=== PATIENT | male | born 1950 | race Caucasian/White ===

== ENCOUNTER 2017-03-18 07:29 | Emergency (ER) | payer MEDICAID ==
[~2017-03-18] VITALS: Ht 190.5 cm; Wt 103.0 kg
[~2017-03-18 07:29] MED LIST: CLON0.1T PO; DIGO0.2570 PO; DOXY-216 PO; LEVO-28 PO; LORA-654 PO; NOR10T PO
[2017-03-18 07:58] VITALS: BP 137/92
== END 2017-03-18 08:33 | disposition home or self-care (01) ==
LOC: ER 07:29
DX: K40.90 Unilateral inguinal hernia, without obstruction or gangrene, not specified as recurrent (principal); J44.9 Chronic obstructive pulmonary disease, unspecified; I50.9 Heart failure, unspecified; I11.0 Hypertensive heart disease with heart failure; E11.9 Type 2 diabetes mellitus without complications; F17.210 Nicotine dependence, cigarettes, uncomplicated; Z82.49 Family history of ischemic heart disease and other diseases of the circulatory system; Z80.9 Family history of malignant neoplasm, unspecified; Z88.6 Allergy status to analgesic agent; Z88.8 Allergy status to other drugs, medicaments and biological substances

== ENCOUNTER 2017-05-20 22:35 | Inpatient (IN) | payer MEDICAID ==
[~2017-05-20] VITALS: Ht 185.4 cm; Wt 99.6 kg
[2017-05-20 23:20] LABS: Basophils # (auto) 0.1 uL; Eosinophils # (auto) 0.2 uL; Eosinophils % (auto) 2.8 % (0.0-7.0); Hematocrit 49.6 % (41.0-53.0); Hemoglobin 16.1 g/dL (13.5-17.5); Lymphocytes # (auto) 1.4 uL; Lymphocytes % (auto) 19.4 % (10.0-50.0); Mean Corpuscular Hemoglobin 30.4 pg (28.0-32.0); Mean Corpuscular Hgb Conc. 32.5 g/dL (32.0-36.0); Mean Corpuscular Volume 93.4 fL (80.0-100.0); Monocytes # (auto) 0.6 uL; Monocytes % (auto) 8.7 % (0.0-12.0); Neutrophils # (auto) 4.9 uL; Neutrophils % (auto) 68.1 % (37.0-80.0); Nucleated Red Blood Cells % 0.1 %; Platelet Count (auto) 193 10^3/uL (140-450); Red Blood Cells 5.31 10^6/uL (4.5-5.90); Red Cell Distribution Width 16.7 % (11.8-14.3); White Blood Cell 7.2 10^3/uL (4.4-10.8)
[2017-05-20 23:26] LABS: INR 1.05 (0.9-1.15); Prothrombin Time 11.4 sec (9.37-12.3)
[2017-05-20 23:30] LABS: Alanine Aminotransferase 28 U/L (16-61); Albumin 3.9 g/dL (3.4-5.0); Anion Gap 4 (5-15); Aspartate Aminotransferase 21 U/L (15-37); BUN/Creatinine Ratio 11.3; Blood Urea Nitrogen 14 mg/dL (7-18); Calcium 8.7 mg/dL (8.5-10.1); Carbon Dioxide 29 mmol/L (21-32); Chloride 104 mmol/L (98-107); GFR African American 75 mL/min; GFR Non-African American 62 mL/min; Glucose 117 mg/dL (74-106); Sodium 137 mmol/L (136-145)
[2017-05-20] MEDS ORDERED: ONDANSETRON HCL 4 MG/2 ML VIAL IV ONE (23:30)
[2017-05-20] MEDS ORDERED: methylPREDNISolone SOD SUCC 125 MG/2 ML VL IV ONE (23:30)
[2017-05-20] MEDS ORDERED: NALBUPHINE HCL 10 MG/1ml INJECTION IV ONE (23:30)
[2017-05-20 23:35] LABS: Alkaline Phosphatase 94 U/L (45-117); Bilirubin, Total 0.4 mg/dL (0.2-1.0)
[2017-05-21] VITALS (8 sets, daily range): BP systolic 102–123; BP diastolic 54–83
[2017-05-21] MEDS ORDERED: ONDANSETRON HCL 4 MG/2 ML VIAL IV PRN (04:45)
[2017-05-21] MEDS ORDERED: NITROGLYCERIN 0.4 MG SL TAB SL PRN (04:45)
[2017-05-21] MEDS ORDERED: ALBUTEROL SULF 2.5 MG/0.5ML(0.5%) NEB SOLN NEB PRN (04:45)
[2017-05-21] MEDS ORDERED: IPRATROPIUM BROM 0.5 MG/2.5ML INH SOL NEB PRN (04:45)
[2017-05-21] MEDS ORDERED: ACETAMINOPHEN 325 MG TAB PO PRN (04:45)
[2017-05-21] MEDS ORDERED: IPRATROPIUM BROM 0.5 MG/2.5ML INH SOL NEB ONE (04:45)
[2017-05-21] MEDS ORDERED: MORPHINE SULFATE 4 MG/ML SYR/VIAL IV PRN (04:45)
[2017-05-21] MEDS ORDERED: ALBUTEROL SULF 2.5 MG/0.5ML(0.5%) NEB SOLN NEB ONE (04:45)
[2017-05-21] MEDS: FUROSEMIDE 40 MG TAB PO SCH (09:55)
[2017-05-21] MEDS: DIGOXIN 0.125 MG TAB PO SCH (09:55)
[2017-05-21] MEDS: FAMOTIDINE 20 MG TAB PO SCH ×2 (09:55→21:39)
[2017-05-21] MEDS: LISINOPRIL 5 MG TAB PO SCH (09:56)
[2017-05-21] MEDS: HYDROcodone-ACET 5/325MG TAB PO PRN ×2 (09:56→14:42)
[2017-05-21] MEDS: ENOXAPARIN SOD 40 MG/0.4 ML SYRINGE SC SCH (09:56)
[2017-05-21] MEDS ORDERED: methylPREDNISolone SOD SUCC 125 MG/2 ML VL IV SCH (10:00)
[2017-05-21] MEDS ORDERED: KETOROLAC TROMETH 30 MG/ML 1ML VIAL IV PRN (19:45)
[2017-05-21] MEDS: BUDESONIDE (INHALATION) 0.5 MG/2 ML NEB NEB SCH (19:53)
[2017-05-21] MEDS: IPRATROPIUM BROM 0.5 MG/2.5ML INH SOL NEB PRN (19:53)
[2017-05-21] MEDS: ALBUTEROL SULF 2.5 MG/0.5ML(0.5%) NEB SOLN NEB PRN (19:53)
[2017-05-21] MEDS: methylPREDNISolone SOD SUCC 125 MG/2 ML VL IV SCH (21:39)
[2017-05-21] MEDS: HYDROcodone-ACET 7.5/325MG TAB PO PRN (21:40)
[2017-05-22] VITALS (7 sets, daily range): BP systolic 108–150; BP diastolic 62–87
[2017-05-22] MEDS: HYDROcodone-ACET 7.5/325MG TAB PO PRN ×3 (02:18→17:34)
[2017-05-22 05:19] LABS: Basophils # (auto) 0 uL; Basophils % (auto) 0.2 % (0.0-2.0); Eosinophils # (auto) 0 uL; Hematocrit 46.2 % (41.0-53.0); Lymphocytes # (auto) 0.5 uL; Lymphocytes % (auto) 4.5 % (10.0-50.0); Mean Corpuscular Hemoglobin 30.2 pg (28.0-32.0); Mean Corpuscular Hgb Conc. 32.5 g/dL (32.0-36.0); Mean Corpuscular Volume 92.8 fL (80.0-100.0); Monocytes # (auto) 0.4 uL; Monocytes % (auto) 3.3 % (0.0-12.0); Neutrophils # (auto) 11.1 uL; Nucleated Red Blood Cells % 0.1 %; Platelet Count (auto) 193 10^3/uL (140-450); Red Blood Cells 4.98 10^6/uL (4.5-5.90); Red Cell Distribution Width 16.2 % (11.8-14.3)
[2017-05-22] MEDS: methylPREDNISolone SOD SUCC 125 MG/2 ML VL IV SCH (05:40)
[2017-05-22 05:54] LABS: Albumin 3.5 g/dL (3.4-5.0); BUN/Creatinine Ratio 27.6; Bilirubin, Total 0.3 mg/dL (0.2-1.0); Potassium 4.7 mmol/L (3.5-5.1); Total Protein 7.7 g/dL (6.4-8.2)
[2017-05-22] MEDS: BUDESONIDE (INHALATION) 0.5 MG/2 ML NEB NEB SCH ×2 (06:19→18:21)
[2017-05-22] MEDS: ALBUTEROL SULF 2.5 MG/0.5ML(0.5%) NEB SOLN NEB PRN ×3 (06:19→18:21)
[2017-05-22] MEDS: IPRATROPIUM BROM 0.5 MG/2.5ML INH SOL NEB PRN ×3 (06:19→18:21)
[2017-05-22] MEDS: FAMOTIDINE 20 MG TAB PO SCH ×2 (10:26→22:00)
[2017-05-22] MEDS: LISINOPRIL 5 MG TAB PO SCH (10:26)
[2017-05-22] MEDS: DIGOXIN 0.125 MG TAB PO SCH (10:26)
[2017-05-22] MEDS: FUROSEMIDE 40 MG TAB PO SCH (10:26)
[2017-05-22] MEDS: ENOXAPARIN SOD 40 MG/0.4 ML SYRINGE SC SCH (10:27)
[2017-05-23] VITALS: BP 121/79
[2017-05-23] MEDS: TEMAZEPAM 15 MG CAP PO PRN (00:06)
[2017-05-23 04:00] VITALS: BP 123/73
[2017-05-23] MEDS: HYDROcodone-ACET 5/325MG TAB PO PRN ×2 (04:57→21:54)
[2017-05-23] MEDS: predniSONE 20 MG TAB PO SCH (09:50)
[2017-05-23] MEDS: DIGOXIN 0.125 MG TAB PO SCH (09:50)
[2017-05-23] MEDS: FUROSEMIDE 40 MG TAB PO SCH (09:50)
[2017-05-23] MEDS: ENOXAPARIN SOD 40 MG/0.4 ML SYRINGE SC SCH (09:51)
[2017-05-23] MEDS: FAMOTIDINE 20 MG TAB PO SCH ×2 (09:51→21:54)
[2017-05-23] MEDS: HYDROcodone-ACET 7.5/325MG TAB PO PRN ×2 (09:51→14:49)
[2017-05-23] MEDS: BUDESONIDE (INHALATION) 0.5 MG/2 ML NEB NEB SCH ×2 (10:15→18:20)
[2017-05-23] MEDS: LISINOPRIL 5 MG TAB PO SCH (11:11)
[2017-05-23 12:00] VITALS: BP 112/68
[2017-05-23 16:00] VITALS: BP 121/74
[2017-05-23] MEDS: IPRATROPIUM BROM 0.5 MG/2.5ML INH SOL NEB PRN (18:20)
[2017-05-23] MEDS: ALBUTEROL SULF 2.5 MG/0.5ML(0.5%) NEB SOLN NEB PRN (18:20)
[2017-05-23 20:00] VITALS: BP 125/67
[2017-05-24] VITALS: BP 110/70
[2017-05-24] MEDS: HYDROcodone-ACET 5/325MG TAB PO PRN ×2 (02:02→06:01)
[2017-05-24 04:00] VITALS: BP 118/61
[2017-05-24 08:00] VITALS: BP 132/76
[2017-05-24] MEDS: BUDESONIDE (INHALATION) 0.5 MG/2 ML NEB NEB SCH ×2 (09:41→18:24)
[2017-05-24] MEDS: predniSONE 20 MG TAB PO SCH (09:55)
[2017-05-24] MEDS: DIGOXIN 0.125 MG TAB PO SCH (09:56)
[2017-05-24] MEDS: LISINOPRIL 5 MG TAB PO SCH (09:56)
[2017-05-24] MEDS: FAMOTIDINE 20 MG TAB PO SCH ×2 (09:56→22:20)
[2017-05-24] MEDS: FUROSEMIDE 40 MG TAB PO SCH (09:56)
[2017-05-24] MEDS: ENOXAPARIN SOD 40 MG/0.4 ML SYRINGE SC SCH (09:56)
[2017-05-24] MEDS: HYDROcodone-ACET 7.5/325MG TAB PO PRN ×3 (09:57→21:03)
[2017-05-24 12:00] VITALS: BP 117/82
[2017-05-24 16:00] VITALS: BP 119/91
[2017-05-24] MEDS: IPRATROPIUM BROM 0.5 MG/2.5ML INH SOL NEB PRN (18:23)
[2017-05-24] MEDS: ALBUTEROL SULF 2.5 MG/0.5ML(0.5%) NEB SOLN NEB PRN (18:23)
[2017-05-24 20:05] VITALS: BP 99/56
[2017-05-24] MEDS: TEMAZEPAM 15 MG CAP PO PRN (22:20)
[2017-05-25] VITALS: BP 129/84
[2017-05-25 02:58] VITALS: BP 129/89
[2017-05-25] MEDS: HYDROcodone-ACET 7.5/325MG TAB PO PRN (04:04)
[2017-05-25 05:31] LABS: Basophils # (auto) 0 uL; Basophils % (auto) 0.6 % (0.0-2.0); Eosinophils # (auto) 0.2 uL; Eosinophils % (auto) 2.1 % (0.0-7.0); Hematocrit 46.9 % (41.0-53.0); Hemoglobin 15.5 g/dL (13.5-17.5); Lymphocytes # (auto) 2.1 uL; Lymphocytes % (auto) 29.3 % (10.0-50.0); Mean Corpuscular Hemoglobin 30.5 pg (28.0-32.0); Mean Corpuscular Hgb Conc. 32.9 g/dL (32.0-36.0); Mean Corpuscular Volume 92.5 fL (80.0-100.0); Monocytes # (auto) 0.6 uL; Monocytes % (auto) 8.4 % (0.0-12.0); Neutrophils # (auto) 4.3 uL; Neutrophils % (auto) 59.6 % (37.0-80.0); Nucleated Red Blood Cells % 0.1 %; Platelet Count (auto) 211 10^3/uL (140-450); Red Blood Cells 5.07 10^6/uL (4.5-5.90); White Blood Cell 7.3 10^3/uL (4.4-10.8)
[2017-05-25 08:00] VITALS: BP 108/64
[2017-05-25] MEDS: BUDESONIDE (INHALATION) 0.5 MG/2 ML NEB NEB SCH (09:35)
[2017-05-25] MEDS: ENOXAPARIN SOD 40 MG/0.4 ML SYRINGE SC SCH (10:35)
[2017-05-25] MEDS: FAMOTIDINE 20 MG TAB PO SCH (10:36)
[2017-05-25] MEDS: DIGOXIN 0.125 MG TAB PO SCH (10:36)
[2017-05-25] MEDS: predniSONE 20 MG TAB PO SCH (10:36)
[2017-05-25] MEDS: LISINOPRIL 5 MG TAB PO SCH (10:37)
[2017-05-25] MEDS: FUROSEMIDE 40 MG TAB PO SCH (10:37)
[2017-05-25 11:51] VITALS: BP 100/71
[2017-05-25] MEDS ORDERED: DOXYCYCLINE 100 MG TAB/CAP PO ONE (12:30)
[2017-05-25 14:25] VITALS: BP 100/71
[2017-05-25] MEDS ORDERED: DOXYCYCLINE 100 MG TAB/CAP PO SCH (22:00)
== END 2017-05-25 15:15 | disposition home or self-care (01) | DRG 140 ==
LOC: EDBD 22:35 → ER 22:43 → TELE 22:44 → DOU IN ICU 05-21 15:18
PROVIDERS: ADMIT Nurse Practitioner; ATTEND Internal Medicine Pulmonary Disease
DX: J44.1 Chronic obstructive pulmonary disease with (acute) exacerbation (principal); J96.21 Acute and chronic respiratory failure with hypoxia; I50.9 Heart failure, unspecified; I11.0 Hypertensive heart disease with heart failure; Z99.81 Dependence on supplemental oxygen; I48.2 Chronic atrial fibrillation; E83.51 Hypocalcemia; E11.9 Type 2 diabetes mellitus without complications; F17.210 Nicotine dependence, cigarettes, uncomplicated; G89.29 Other chronic pain; K59.00 Constipation, unspecified; M19.90 Unspecified osteoarthritis, unspecified site; M54.5 Low back pain; Z88.8 Allergy status to other drugs, medicaments and biological substances; Z79.01 Long term (current) use of anticoagulants; Z80.9 Family history of malignant neoplasm, unspecified; Z88.5 Allergy status to narcotic agent; Z79.899 Other long term (current) drug therapy; Z82.49 Family history of ischemic heart disease and other diseases of the circulatory system
CPT/HCPCS: 36415; 36600; 71045; 80053; 82805; 82962; 83880; 84132; 84484; 85025; 85379; 85610; 85730; 87081; 93005; 93306; 94640; 96374; 96375; J2405

== ENCOUNTER 2017-06-22 06:11 | Inpatient (IN) | payer MEDICAID ==
[~2017-06-22] VITALS: Ht 190.5 cm; Wt 90.6 kg
[~2017-06-22 06:11] MED LIST changes: -LEVO-28 PO
[2017-06-22 07:45] LABS: Basophils # (auto) 0.1 uL; Eosinophils # (auto) 0.2 uL; Eosinophils % (auto) 2.6 % (0.0-7.0); Hematocrit 41.7 % (41.0-53.0); Hemoglobin 13.7 g/dL (13.5-17.5); Lymphocytes # (auto) 1.4 uL; Lymphocytes % (auto) 23.9 % (10.0-50.0); Mean Corpuscular Hemoglobin 30.4 pg (28.0-32.0); Mean Corpuscular Hgb Conc. 32.9 g/dL (32.0-36.0); Mean Corpuscular Volume 92.5 fL (80.0-100.0); Monocytes # (auto) 0.9 uL; Monocytes % (auto) 15.1 % (0.0-12.0); Neutrophils # (auto) 3.4 uL; Neutrophils % (auto) 57.4 % (37.0-80.0); Nucleated Red Blood Cells % 0.1 %; Platelet Count (auto) 140 10^3/uL (140-450); Red Blood Cells 4.51 10^6/uL (4.5-5.90); Red Cell Distribution Width 16.9 % (11.8-14.3)
[2017-06-22 08:06] LABS: INR 0.99 (0.9-1.15); Partial Thromboplastin Time 43.3 sec (22.64-33.71); Prothrombin Time 10.8 sec (9.37-12.3)
[2017-06-22 08:21] LABS: Alanine Aminotransferase 22 U/L (16-61); Albumin 3.6 g/dL (3.4-5.0); Alkaline Phosphatase 79 U/L (45-117); Anion Gap 10 (5-15); Aspartate Aminotransferase 20 U/L (15-37); BUN/Creatinine Ratio 17.8; Bilirubin, Total 0.5 mg/dL (0.2-1.0); Blood Urea Nitrogen 21 mg/dL (7-18); Calcium 8.5 mg/dL (8.5-10.1); Carbon Dioxide 21 mmol/L (21-32); Chloride 107 mmol/L (98-107); GFR African American 80 mL/min; GFR Non-African American 66 mL/min; Glucose 118 mg/dL (74-106); Magnesium 2.4 mg/dL (1.6-2.6); Potassium 3.8 mmol/L (3.5-5.1); Sodium 138 mmol/L (136-145)
[2017-06-22] MEDS ORDERED: SODIUM CHLORIDE 0.9% 1,000 ML IV ONE (08:38)
[2017-06-22] MEDS ORDERED: IPRATROPIUM BROM 0.5 MG/2.5ML INH SOL NEB ONE (11:00)
[2017-06-22] MEDS ORDERED: ALBUTEROL SULF 2.5 MG/0.5ML(0.5%) NEB SOLN NEB ONE (11:00)
[2017-06-22] MEDS ORDERED: MORPHINE SULFATE 4 MG/ML SYR/VIAL ONE (11:11)
[2017-06-22] MEDS ORDERED: ONDANSETRON HCL 4 MG/2 ML VIAL ONE (11:12)
[2017-06-22] MEDS ORDERED: MORPHINE SULFATE 4 MG/ML SYR/VIAL IV ONE (11:15)
[2017-06-22] MEDS ORDERED: ONDANSETRON HCL 4 MG/2 ML VIAL IV ONE (11:15)
[2017-06-22] MEDS ORDERED: cefTRIAXone 1GM/10ml IVPUSH 10 ML IV ONE (13:00)
[2017-06-22] MEDS ORDERED: MORPHINE SULFATE 4 MG/ML SYR/VIAL IV PRN (14:45)
[2017-06-22] MEDS ORDERED: TEMAZEPAM 15 MG CAP PO PRN (14:45)
[2017-06-22] MEDS ORDERED: ONDANSETRON HCL 4 MG/2 ML VIAL IV PRN (14:45)
[2017-06-22] MEDS ORDERED: NITROGLYCERIN 0.4 MG SL TAB SL PRN (14:45)
[2017-06-22] MEDS ORDERED: DEXTROSE (50%) 50ML SYRG IV PRN (14:45)
[2017-06-22] MEDS ORDERED: ACETAMINOPHEN 325 MG TAB PO PRN (14:45)
[2017-06-22] MEDS ORDERED: AZITHROMYCIN 500MG/ 250ML 250 ML IV ONE (14:45)
[2017-06-22] MEDS ORDERED: DOCUSATE SOD 100 MG CAP PO PRN (14:45)
[2017-06-22] MEDS: MORPHINE SULFATE 4 MG/ML SYR/VIAL IV PRN ×2 (16:51→21:15)
[2017-06-22] MEDS: InsuLIN REG 1unit/0.01ml Soln (100units/ml) SC SCH ×2 (17:00→21:14)
[2017-06-22] MEDS: ACCU-CHEK COMFORT CURVE STRIP VI SCH ×2 (17:27→21:15)
[2017-06-22] MEDS ORDERED: cloNIDine HCL 0.1 MG TAB PO PRN (18:00)
[2017-06-22] MEDS: IPRATROPIUM BROM 0.5 MG/2.5ML INH SOL NEB SCH (18:23)
[2017-06-22] MEDS: ALBUTEROL SULF 2.5 MG/0.5ML(0.5%) NEB SOLN NEB SCH (18:23)
[2017-06-22] MEDS ORDERED: DOCU-94 PO (18:54)
[2017-06-22] MEDS ORDERED: POTA10TA34 PO (18:54)
[2017-06-22] MEDS ORDERED: METF-370 PO (18:54)
[2017-06-22] MEDS ORDERED: FURO40TA4 PO (18:54)
[2017-06-22] MEDS ORDERED: LISI-646 PO (18:54)
[2017-06-22 20:06] VITALS: BP 134/80
[2017-06-22] MEDS: SODIUM CHLOR 0.9% PF (SALINE LOCK) 10ML VIAL IV SCH (21:14)
[2017-06-22] MEDS: FAMOTIDINE 20 MG TAB PO SCH (21:14)
[2017-06-22 22:57] VITALS: BP 133/80
[2017-06-22] MEDS ORDERED: GABA300C10 PO (23:06)
[2017-06-23] VITALS (7 sets, daily range): BP systolic 115–137; BP diastolic 66–90
[2017-06-23] MEDS: ALBUTEROL SULF 2.5 MG/0.5ML(0.5%) NEB SOLN NEB SCH ×4 (00:22→19:10)
[2017-06-23] MEDS: IPRATROPIUM BROM 0.5 MG/2.5ML INH SOL NEB SCH ×4 (00:22→19:10)
[2017-06-23] MEDS: HYDROcodone-ACET 5/325MG TAB PO PRN (05:24)
[2017-06-23] MEDS: SODIUM CHLOR 0.9% PF (SALINE LOCK) 10ML VIAL IV SCH ×3 (06:02→21:44)
[2017-06-23] MEDS: InsuLIN REG 1unit/0.01ml Soln (100units/ml) SC SCH ×4 (06:21→21:48)
[2017-06-23] MEDS: ACCU-CHEK COMFORT CURVE STRIP VI SCH ×4 (06:21→21:44)
[2017-06-23 06:47] LABS: Basophils # (auto) 0 uL; Basophils % (auto) 0.6 % (0.0-2.0); Eosinophils # (auto) 0.3 uL; Eosinophils % (auto) 6.3 % (0.0-7.0); Hematocrit 39.8 % (41.0-53.0); Hemoglobin 13.2 g/dL (13.5-17.5); Lymphocytes # (auto) 0.9 uL; Lymphocytes % (auto) 16.5 % (10.0-50.0); Mean Corpuscular Hemoglobin 30.7 pg (28.0-32.0); Mean Corpuscular Hgb Conc. 33.1 g/dL (32.0-36.0); Mean Corpuscular Volume 92.6 fL (80.0-100.0); Monocytes # (auto) 0.6 uL; Monocytes % (auto) 10.8 % (0.0-12.0); Neutrophils # (auto) 3.6 uL; Neutrophils % (auto) 65.8 % (37.0-80.0); Platelet Count (auto) 121 10^3/uL (140-450); Red Cell Distribution Width 16.1 % (11.8-14.3); White Blood Cell 5.4 10^3/uL (4.4-10.8)
[2017-06-23 06:59] LABS: Albumin 3.2 g/dL (3.4-5.0); BUN/Creatinine Ratio 17.9; Calcium 8.6 mg/dL (8.5-10.1); Potassium 4.6 mmol/L (3.5-5.1)
[2017-06-23 07:03] LABS: Bilirubin, Total 0.5 mg/dL (0.2-1.0); Total Protein 6.6 g/dL (6.4-8.2)
[2017-06-23] MEDS: cefTRIAXone 1GM/10ml IVPUSH 10 ML IV SCH (08:45)
[2017-06-23] MEDS: MORPHINE SULFATE 4 MG/ML SYR/VIAL IV PRN ×2 (08:46→17:55)
[2017-06-23 09:24] LABS: Urine Bacteria NONE SEEN /hpf (None Seen); Urine Blood Negative /uL (Negative); Urine Specific Gravity 1.019 (1.001-1.035); Urine WBC <1 /hpf (0 - 3)
[2017-06-23] MEDS: AZITHROMYCIN 500MG/ 250ML 250 ML IV SCH (09:43)
[2017-06-23] MEDS: POTASSIUM CHL 10 Meq TABLET PO SCH (09:43)
[2017-06-23] MEDS: FAMOTIDINE 20 MG TAB PO SCH ×2 (09:43→21:44)
[2017-06-23] MEDS: MULTIPLE VITAMIN TAB PO SCH (09:43)
[2017-06-23] MEDS: FUROSEMIDE 40 MG TAB PO SCH (09:43)
[2017-06-23] MEDS: LISINOPRIL 20 MG TAB PO SCH (10:08)
[2017-06-23] MEDS: Boost Glucose Control 8 Ounces PO SCH ×2 (12:23→18:13)
[2017-06-23] MEDS ORDERED: FLUO-125 PO (18:04)
[2017-06-23] MEDS: GABAPENTIN 300 MG CAP PO SCH (21:44)
[2017-06-24] MEDS: ALBUTEROL SULF 2.5 MG/0.5ML(0.5%) NEB SOLN NEB SCH ×3 (00:16→11:09)
[2017-06-24] MEDS: IPRATROPIUM BROM 0.5 MG/2.5ML INH SOL NEB SCH ×3 (00:16→11:09)
[2017-06-24 02:20] VITALS: BP 124/69
[2017-06-24 05:00] VITALS: BP 126/80
[2017-06-24 05:57] LABS: Basophils # (auto) 0 uL; Basophils % (auto) 0.9 % (0.0-2.0); Eosinophils # (auto) 0.3 uL; Eosinophils % (auto) 5.8 % (0.0-7.0); Hematocrit 43.5 % (41.0-53.0); Hemoglobin 14.1 g/dL (13.5-17.5); Lymphocytes # (auto) 1.1 uL; Lymphocytes % (auto) 23.6 % (10.0-50.0); Mean Corpuscular Hemoglobin 30.2 pg (28.0-32.0); Mean Corpuscular Hgb Conc. 32.5 g/dL (32.0-36.0); Mean Corpuscular Volume 92.9 fL (80.0-100.0); Monocytes # (auto) 0.6 uL; Monocytes % (auto) 12.6 % (0.0-12.0); Neutrophils # (auto) 2.8 uL; Neutrophils % (auto) 57.1 % (37.0-80.0); Nucleated Red Blood Cells % 0.2 %; Platelet Count (auto) 130 10^3/uL (140-450); Red Blood Cells 4.68 10^6/uL (4.5-5.90); Red Cell Distribution Width 16.4 % (11.8-14.3); White Blood Cell 4.9 10^3/uL (4.4-10.8)
[2017-06-24] MEDS: MORPHINE SULFATE 4 MG/ML SYR/VIAL IV PRN ×2 (06:00→09:53)
[2017-06-24] MEDS: SODIUM CHLOR 0.9% PF (SALINE LOCK) 10ML VIAL IV SCH (06:00)
[2017-06-24] MEDS: InsuLIN REG 1unit/0.01ml Soln (100units/ml) SC SCH ×2 (06:05→11:30)
[2017-06-24] MEDS: ACCU-CHEK COMFORT CURVE STRIP VI SCH ×2 (06:05→12:44)
[2017-06-24 06:14] LABS: BUN/Creatinine Ratio 15.4; Potassium 4.8 mmol/L (3.5-5.1)
[2017-06-24] MEDS: Boost Glucose Control 8 Ounces PO SCH ×2 (08:00→12:00)
[2017-06-24] MEDS: ALBUTEROL SULF 2.5 MG/0.5ML(0.5%) NEB SOLN NEB PRN ×2 (08:53→13:30)
[2017-06-24] MEDS: IPRATROPIUM BROM 0.5 MG/2.5ML INH SOL NEB PRN ×2 (08:53→13:30)
[2017-06-24 09:02] VITALS: BP 139/80
[2017-06-24] MEDS: MULTIPLE VITAMIN TAB PO SCH (09:35)
[2017-06-24] MEDS: cefTRIAXone 1GM/10ml IVPUSH 10 ML IV SCH (09:35)
[2017-06-24] MEDS: POTASSIUM CHL 10 Meq TABLET PO SCH (09:35)
[2017-06-24] MEDS: FAMOTIDINE 20 MG TAB PO SCH (09:35)
[2017-06-24] MEDS: GABAPENTIN 300 MG CAP PO SCH (09:35)
[2017-06-24] MEDS: LISINOPRIL 20 MG TAB PO SCH (09:36)
[2017-06-24] MEDS: AZITHROMYCIN 500MG/ 250ML 250 ML IV SCH (09:36)
[2017-06-24] MEDS: FUROSEMIDE 40 MG TAB PO SCH (09:36)
[2017-06-24] MEDS ORDERED: FLUoxetine HCL 20 MG CAP PO SCH (10:00)
[2017-06-24] MEDS: HYDROcodone-ACET 5/325MG TAB PO PRN (11:55)
[2017-06-24 13:07] VITALS: BP 107/75
== END 2017-06-24 16:23 | disposition home or self-care (01) | DRG 139 ==
LOC: EDBD 06:11 → ER 06:17 → TELE 06:18 → TELE-WESTW 18:29
PROVIDERS: ADMIT Internal Medicine; ATTEND Internal Medicine
PROC: 5A09357 Assistance with Respiratory Ventilation, Less than 24 Consecutive Hours, Continuous Positive Airway Pressure (ICD-10-PCS; principal; 2017-06-24)
DX: J18.1 Lobar pneumonia, unspecified organism (principal); D68.69 Other thrombophilia; J44.0 Chronic obstructive pulmonary disease with (acute) lower respiratory infection; I13.0 Hypertensive heart and chronic kidney disease with heart failure and stage 1 through stage 4 chronic kidney disease, or unspecified chronic kidney disease; I50.42 Chronic combined systolic (congestive) and diastolic (congestive) heart failure; J45.901 Unspecified asthma with (acute) exacerbation; E11.21 Type 2 diabetes mellitus with diabetic nephropathy; E11.22 Type 2 diabetes mellitus with diabetic chronic kidney disease; J44.1 Chronic obstructive pulmonary disease with (acute) exacerbation; F17.210 Nicotine dependence, cigarettes, uncomplicated; F41.9 Anxiety disorder, unspecified; I48.91 Unspecified atrial fibrillation; I48.92 Unspecified atrial flutter; M19.90 Unspecified osteoarthritis, unspecified site; Z82.49 Family history of ischemic heart disease and other diseases of the circulatory system; Z86.14 Personal history of Methicillin resistant Staphylococcus aureus infection; Z99.81 Dependence on supplemental oxygen; N18.2 Chronic kidney disease, stage 2 (mild); R91.1 Solitary pulmonary nodule; Z79.899 Other long term (current) drug therapy
CPT/HCPCS: 36415; 71045; 71250; 80048; 80053; 80162; 81001; 82962; 83036; 83605; 83735; 83880; 84443; 84484; 85025; 85610; 85730; 87040; 87070; 87077; 87081; 87186; 87205; 93005; 94640; 94660; 94761; 96361; 96365; 96375; J2405

== ENCOUNTER 2019-08-21 20:47 | Inpatient (IN) | payer OTHER, MEDICAID ==
[~2019-08-21] VITALS: Ht 190.5 cm; Wt 103.5 kg
[~2019-08-21 20:47] MED LIST changes: -CLON0.1T PO; +DOCU-94 PO; -DOXY-216 PO; +FURO1TAB31 PO; +GABA300C10 PO; +GLIP5TAB12 PO; +LISI-646 PO; -LORA-654 PO; +METF-370 PO; +METO-169 PO; +PANT40T PO; +POTA1TAB61 PO; +SERT-160 PO; +SILD50TA42 PO; +SUCR1TAB38 OR; +TEMA30CA PO
[2019-08-21] MEDS ORDERED: ACETAMINOPHEN 500 MG TAB PO ONE (21:30)
[2019-08-21] MEDS ORDERED: AZITHROMYCIN 500MG/ 250ML 250 ML IV ONE (23:00)
[2019-08-21] MEDS ORDERED: cefTRIAXone 1GM/50ML D5W 50 ML IV ONE (23:00)
[2019-08-21] MEDS ORDERED: dilTIAZem HCL 60 MG TAB PO ONE (23:30)
[2019-08-21] MEDS ORDERED: dilTIAZem 25 MG/5 ML VIAL IV ONE (23:30)
[2019-08-22] VITALS (7 sets, daily range): BP systolic 90–151; BP diastolic 50–110
[2019-08-22 00:02] LABS: Basophils # (auto) 0.1 10 ^3/uL (0-0.2); Basophils % (auto) 0.6 % (0.0-2.0); Eosinophils # (auto) 0.1 10 ^3/uL (0-0.8); Eosinophils % (auto) 0.4 % (0.0-7.0); Hematocrit 43.7 % (41.0-53.0); Hemoglobin 14.2 g/dL (13.5-17.5); Lymphocytes # (auto) 0.3 10 ^3/uL (0.4-5.4); Mean Corpuscular Hemoglobin 29.8 pg (28.0-32.0); Mean Corpuscular Hgb Conc. 32.4 g/dL (32.0-36.0); Mean Corpuscular Volume 91.9 fL (80.0-100.0); Monocytes # (auto) 0.5 10 ^3/uL (0-1.3); Monocytes % (auto) 3.6 % (0.0-12.0); Neutrophils # (auto) 12.9 10 ^3/uL (1.6-8.6); Neutrophils % (auto) 93.4 % (37.0-80.0); Platelet Count (auto) 161 10^3/uL (140-450); Red Blood Cells 4.76 10^6/uL (4.5-5.90); Red Cell Distribution Width 17.5 % (11.8-14.3); White Blood Cell 13.8 10^3/uL (4.4-10.8)
[2019-08-22] MEDS ORDERED: SODIUM CHLORIDE 0.9% 500 ML IV ONE (00:15)
[2019-08-22 00:18] LABS: INR 1.09 (0.9-1.15); Partial Thromboplastin Time 40.4 sec (23.64-32.05)
[2019-08-22 00:22] LABS: Alanine Aminotransferase 20 U/L (16-61); Albumin 3.5 g/dL (3.4-5.0); Anion Gap 11 (5-15); Aspartate Aminotransferase 17 U/L (15-37); BUN/Creatinine Ratio 6.6; Blood Urea Nitrogen 6 mg/dL (7-18); Calcium 8.6 mg/dL (8.5-10.1); Carbon Dioxide 23 mmol/L (21-32); Chloride 104 mmol/L (98-107); GFR African American 107 mL/min; GFR Non-African American 89 mL/min; Glucose 144 mg/dL (74-106); Magnesium 1.6 mg/dL (1.6-2.6); Potassium 3.4 mmol/L (3.5-5.1); Sodium 138 mmol/L (136-145)
[2019-08-22 00:24] LABS: Lactic Acid w/Reflex 4.4 mmol/L (0.4-2.0)
[2019-08-22 00:27] LABS: Alkaline Phosphatase 80 U/L (45-117); Bilirubin, Total 0.4 mg/dL (0.2-1.0); Total Protein 7.4 g/dL (6.4-8.2)
[2019-08-22] MEDS ORDERED: IBUPROFEN 800 MG TAB PO ONE (01:00)
[2019-08-22] MEDS ORDERED: SODIUM CHLORIDE 0.9% 1,000 ML IV ONE (01:45)
[2019-08-22 02:12] LABS: Urine Bacteria NONE SEEN /hpf (None Seen); Urine Blood Negative /uL (Negative); Urine Mucus FEW (None Seen); Urine Specific Gravity 1.031 (1.001-1.035); Urine WBC 1 /hpf (0 - 3)
[2019-08-22 02:19] LABS: Amphetamine Screen, Urine NEGATIVE (NEGATIVE); Barbiturate Scree,Urine NEGATIVE (NEGATIVE); Benzodiazephine Screen, Urine NEGATIVE (NEGATIVE); Cannabinoid Screen, Urine NEGATIVE (NEGATIVE); Cocaine Screen, Urine NEGATIVE (NEGATIVE); Opiate Scree,Urine NEGATIVE (NEGATIVE); Phencyclidine Screen, Urine NEGATIVE (NEGATIVE)
[2019-08-22] MEDS ORDERED: ONDANSETRON HCL 4 MG/2 ML VIAL IV ONE (02:30)
[2019-08-22] MEDS ORDERED: HYDROmorphone HCL 2 MG/ML VL IV ONE ×2 (02:30→13:15)
[2019-08-22] MEDS ORDERED: VANCOMYCIN PER PHARMACY 0 MG IV SCH (05:15)
[2019-08-22] MEDS ORDERED: cloNIDine HCL 0.1 MG TAB PO PRN (05:15)
[2019-08-22] MEDS ORDERED: ACETAMINOPHEN 325 MG TAB PO PRN (05:15)
[2019-08-22] MEDS ORDERED: MORPHINE SULF INJ 2 MG/ML SYRINGE 1ML IV PRN (05:15)
[2019-08-22] MEDS ORDERED: ONDANSETRON HCL 4 MG/2 ML VIAL IV PRN (05:15)
[2019-08-22] MEDS ORDERED: NITROGLYCERIN 0.4 MG SL TAB SL PRN (05:15)
[2019-08-22] MEDS ORDERED: DEXTROSE (50%) 50ML SYRG IV PRN (05:15)
[2019-08-22] MEDS ORDERED: ALBUTEROL SULF HFA 90MCG INH 200DOSE IN SCH (06:00)
[2019-08-22] MEDS ORDERED: MORPHINE SULFATE 4 MG/ML SYR/VIAL IV PRN (06:00)
[2019-08-22 06:51] LABS: CRP High Sensitivity 3.83 mg/dL (< 0.3)
[2019-08-22] MEDS: ACCU-CHEK COMFORT CURVE STRIP VI SCH ×4 (07:08→22:07)
[2019-08-22] MEDS: InsuLIN REG 1unit/0.01ml Soln (100units/ml) SC SCH ×4 (07:10→22:00)
[2019-08-22] MEDS: VANCOMYCIN 1GM/250ML 250 ML IV SCH ×3 (07:16→23:06)
[2019-08-22] MEDS: SILDENAFIL CITRATE 20 MG TAB PO SCH ×3 (08:42→20:53)
[2019-08-22] MEDS ORDERED: ASCORBIC ACID 1,000 MG TAB PO SCH (10:00)
[2019-08-22] MEDS ORDERED: CHOLECALCIFEROL (VITD3) 1,000IU=25mCg TAB PO SCH (10:00)
[2019-08-22] MEDS ORDERED: DOXYCYCLINE 100MG/250ML 250 ML IV SCH (10:00)
[2019-08-22] MEDS ORDERED: ENOXAPARIN SOD 40 MG/0.4 ML SYRINGE SC SCH (10:00)
[2019-08-22] MEDS ORDERED: ZINC SULFATE 220mg CAP or TAB PO SCH (10:00)
[2019-08-22] MEDS: GABAPENTIN 300 MG CAP PO SCH ×2 (10:23→20:54)
[2019-08-22] MEDS: FUROSEMIDE 40 MG TAB PO SCH (10:23)
[2019-08-22] MEDS: DIGOXIN 0.125 MG TAB PO SCH (10:23)
[2019-08-22] MEDS: PANTOPRAZOLE 40 MG TAB PO SCH (10:24)
[2019-08-22] MEDS ORDERED: POTASSIUM CHL 20 Meq TABLET PO ONE (11:30)
[2019-08-22] MEDS ORDERED: FUROSEMIDE 40 MG/4 ML VIAL IV ONE (11:30)
[2019-08-22] MEDS ORDERED: cefTRIAXone 1GM/50ML D5W 50 ML IV ONE (13:15)
[2019-08-22] MEDS ORDERED: THIAMINE HCL 100 MG TAB PO ONE (13:15)
[2019-08-22] MEDS: chlordiazePOXIDE HCL 5 MG CAP PO PRN (16:48)
[2019-08-22] MEDS: ALBUTEROL SULF 2.5 MG/0.5ML(0.5%) NEB SOLN NEB SCH ×2 (17:48→22:01)
[2019-08-22] MEDS: IPRATROPIUM BROM 0.5 MG/2.5ML INH SOL NEB SCH ×2 (17:48→22:01)
[2019-08-22] MEDS: RIVAROXABAN 20 MG TAB PO SCH (19:02)
[2019-08-22] MEDS: HYDROcodone-ACET 5/325MG TAB PO PRN (20:54)
[2019-08-23 00:12] VITALS: BP 98/64
[2019-08-23] MEDS: ALBUTEROL SULF 2.5 MG/0.5ML(0.5%) NEB SOLN NEB SCH ×6 (02:00→22:12)
[2019-08-23] MEDS: IPRATROPIUM BROM 0.5 MG/2.5ML INH SOL NEB SCH ×6 (02:00→22:12)
[2019-08-23 04:19] VITALS: BP 95/65
[2019-08-23 06:27] LABS: Basophils # (auto) 0 10 ^3/uL (0-0.2); Basophils % (auto) 0.9 % (0.0-2.0); Eosinophils # (auto) 0.1 10 ^3/uL (0-0.8); Eosinophils % (auto) 1.5 % (0.0-7.0); Hematocrit 38.3 % (41.0-53.0); Hemoglobin 12.3 g/dL (13.5-17.5); Lymphocytes # (auto) 0.8 10 ^3/uL (0.4-5.4); Lymphocytes % (auto) 13.4 % (10.0-50.0); Mean Corpuscular Hgb Conc. 32.2 g/dL (32.0-36.0); Monocytes # (auto) 0.6 10 ^3/uL (0-1.3); Monocytes % (auto) 10.2 % (0.0-12.0); Neutrophils # (auto) 4.3 10 ^3/uL (1.6-8.6); Nucleated Red Blood Cells % 0.1 %; Platelet Count (auto) 121 10^3/uL (140-450); Red Blood Cells 4.11 10^6/uL (4.5-5.90); Red Cell Distribution Width 17.5 % (11.8-14.3); White Blood Cell 5.7 10^3/uL (4.4-10.8)
[2019-08-23] MEDS: VANCOMYCIN 1GM/250ML 250 ML IV SCH (06:30)
[2019-08-23] MEDS: HYDROcodone-ACET 5/325MG TAB PO PRN (06:34)
[2019-08-23 06:50] LABS: Albumin 2.8 g/dL (3.4-5.0); Calcium 8.1 mg/dL (8.5-10.1); Potassium 3.9 mmol/L (3.5-5.1)
[2019-08-23 06:55] LABS: BUN/Creatinine Ratio 16.7; Bilirubin, Total 0.4 mg/dL (0.2-1.0); Total Protein 6.4 g/dL (6.4-8.2)
[2019-08-23] MEDS: ACCU-CHEK COMFORT CURVE STRIP VI SCH ×4 (06:58→22:00)
[2019-08-23] MEDS: InsuLIN REG 1unit/0.01ml Soln (100units/ml) SC SCH ×4 (06:58→22:30)
[2019-08-23] MEDS: SILDENAFIL CITRATE 20 MG TAB PO SCH ×3 (07:48→20:30)
[2019-08-23 08:00] VITALS: BP 93/67
[2019-08-23] MEDS: cefTRIAXone 1GM/50ML D5W 50 ML IV SCH (08:41)
[2019-08-23] MEDS: GABAPENTIN 300 MG CAP PO SCH ×2 (09:39→22:33)
[2019-08-23] MEDS: DIGOXIN 0.125 MG TAB PO SCH (09:39)
[2019-08-23] MEDS: PANTOPRAZOLE 40 MG TAB PO SCH (09:39)
[2019-08-23] MEDS: FUROSEMIDE 40 MG TAB PO SCH (09:40)
[2019-08-23] MEDS: THIAMINE HCL 100 MG TAB PO SCH (09:40)
[2019-08-23] MEDS ORDERED: FUROSEMIDE 20 MG TAB PO ONE (11:15)
[2019-08-23] MEDS ORDERED: SERTRALINE HCL 50 MG TAB PO ONE (11:15)
[2019-08-23] MEDS: HYDROcodone-ACET 10/325MG TAB PO PRN ×3 (11:48→20:12)
[2019-08-23 12:00] VITALS: BP 112/63
[2019-08-23 16:00] VITALS: BP 105/70
[2019-08-23] MEDS: RIVAROXABAN 20 MG TAB PO SCH (17:41)
[2019-08-23 20:00] VITALS: BP 112/85
[2019-08-24] VITALS: BP 96/63
[2019-08-24] MEDS: HYDROcodone-ACET 10/325MG TAB PO PRN ×3 (00:29→10:07)
[2019-08-24] MEDS: IPRATROPIUM BROM 0.5 MG/2.5ML INH SOL NEB SCH ×6 (02:15→21:51)
[2019-08-24] MEDS: ALBUTEROL SULF 2.5 MG/0.5ML(0.5%) NEB SOLN NEB SCH ×6 (02:16→21:51)
[2019-08-24] MEDS: InsuLIN REG 1unit/0.01ml Soln (100units/ml) SC SCH ×4 (07:00→23:08)
[2019-08-24] MEDS: ACCU-CHEK COMFORT CURVE STRIP VI SCH ×4 (07:00→23:09)
[2019-08-24 08:00] VITALS: BP 105/70
[2019-08-24] MEDS: cefTRIAXone 1GM/50ML D5W 50 ML IV SCH (08:12)
[2019-08-24] MEDS: SILDENAFIL CITRATE 20 MG TAB PO SCH ×3 (08:12→20:52)
[2019-08-24] MEDS: DIGOXIN 0.125 MG TAB PO SCH (09:59)
[2019-08-24] MEDS: GABAPENTIN 300 MG CAP PO SCH ×2 (09:59→23:03)
[2019-08-24] MEDS: SERTRALINE HCL 50 MG TAB PO SCH (09:59)
[2019-08-24] MEDS: PANTOPRAZOLE 40 MG TAB PO SCH (10:01)
[2019-08-24] MEDS: FUROSEMIDE 40 MG TAB PO SCH (10:01)
[2019-08-24] MEDS: THIAMINE HCL 100 MG TAB PO SCH (10:01)
[2019-08-24] MEDS: AZITHROMYCIN 500MG/ 250ML 250 ML IV SCH (10:01)
[2019-08-24 12:00] VITALS: BP 106/78
[2019-08-24] MEDS: HYDROmorphone HCL 2 MG/ML VL IV PRN ×2 (14:55→20:52)
[2019-08-24 16:00] VITALS: BP 109/84
[2019-08-24] MEDS: ACETYLCYSTEINE 10 %(100MG/ML) SOL 4ML NEB SCH ×2 (18:17→21:52)
[2019-08-24] MEDS: RIVAROXABAN 20 MG TAB PO SCH (18:40)
[2019-08-24 20:00] VITALS: BP 104/69
[2019-08-24] MEDS: TEMAZEPAM 15 MG CAP PO PRN (20:52)
[2019-08-25] VITALS: BP 115/76
[2019-08-25] MEDS: ACETYLCYSTEINE 10 %(100MG/ML) SOL 4ML NEB SCH ×6 (02:33→22:21)
[2019-08-25] MEDS: ALBUTEROL SULF 2.5 MG/0.5ML(0.5%) NEB SOLN NEB SCH ×6 (02:33→22:21)
[2019-08-25] MEDS: IPRATROPIUM BROM 0.5 MG/2.5ML INH SOL NEB SCH ×6 (02:33→22:21)
[2019-08-25 03:40] LABS: Basophils # (auto) 0.1 10 ^3/uL (0-0.2); Basophils % (auto) 0.9 % (0.0-2.0); Eosinophils # (auto) 0.2 10 ^3/uL (0-0.8); Eosinophils % (auto) 1.8 % (0.0-7.0); Hematocrit 37.6 % (41.0-53.0); Lymphocytes # (auto) 1.1 10 ^3/uL (0.4-5.4); Lymphocytes % (auto) 12.4 % (10.0-50.0); Mean Corpuscular Hgb Conc. 31.8 g/dL (32.0-36.0); Mean Corpuscular Volume 94.3 fL (80.0-100.0); Monocytes # (auto) 0.8 10 ^3/uL (0-1.3); Neutrophils # (auto) 6.6 10 ^3/uL (1.6-8.6); Neutrophils % (auto) 75.9 % (37.0-80.0); Platelet Count (auto) 140 10^3/uL (140-450); Red Blood Cells 3.99 10^6/uL (4.5-5.90); Red Cell Distribution Width 17.1 % (11.8-14.3); White Blood Cell 8.7 10^3/uL (4.4-10.8)
[2019-08-25 04:00] VITALS: BP 92/58
[2019-08-25 04:00] LABS: Calcium 8.5 mg/dL (8.5-10.1); Potassium 4.4 mmol/L (3.5-5.1)
[2019-08-25 04:03] LABS: BUN/Creatinine Ratio 14.8; Bilirubin, Total 0.4 mg/dL (0.2-1.0); Total Protein 6.8 g/dL (6.4-8.2)
[2019-08-25] MEDS: InsuLIN REG 1unit/0.01ml Soln (100units/ml) SC SCH ×4 (06:50→22:00)
[2019-08-25] MEDS: ACCU-CHEK COMFORT CURVE STRIP VI SCH ×4 (06:50→22:23)
[2019-08-25 07:52] VITALS: BP 126/69
[2019-08-25] MEDS: SILDENAFIL CITRATE 20 MG TAB PO SCH ×3 (08:17→20:43)
[2019-08-25] MEDS: cefTRIAXone 1GM/50ML D5W 50 ML IV SCH (08:17)
[2019-08-25] MEDS: HYDROmorphone HCL 2 MG/ML VL IV PRN ×3 (08:56→20:44)
[2019-08-25] MEDS: AZITHROMYCIN 500MG/ 250ML 250 ML IV SCH (10:29)
[2019-08-25] MEDS: GABAPENTIN 300 MG CAP PO SCH ×2 (10:30→22:23)
[2019-08-25] MEDS: SERTRALINE HCL 50 MG TAB PO SCH (10:30)
[2019-08-25] MEDS: DIGOXIN 0.125 MG TAB PO SCH (10:30)
[2019-08-25] MEDS: FUROSEMIDE 40 MG TAB PO SCH (10:30)
[2019-08-25] MEDS: PANTOPRAZOLE 40 MG TAB PO SCH (10:30)
[2019-08-25] MEDS: THIAMINE HCL 100 MG TAB PO SCH (10:31)
[2019-08-25 11:51] VITALS: BP 118/71
[2019-08-25] MEDS ORDERED: metFORMIN HYDROCHLORIDE 500 MG TAB PO ONE (13:00)
[2019-08-25] MEDS: HYDROcodone-ACET 10/325MG TAB PO PRN (13:00)
[2019-08-25] MEDS: RIVAROXABAN 20 MG TAB PO SCH (18:16)
[2019-08-25] MEDS: metFORMIN HYDROCHLORIDE 500 MG TAB PO SCH (18:17)
[2019-08-25 18:44] VITALS: BP 118/71
[2019-08-25 22:00] VITALS: BP 100/77
[2019-08-26] VITALS: BP 120/60
[2019-08-26] MEDS: HYDROmorphone HCL 2 MG/ML VL IV PRN ×4 (01:12→18:14)
[2019-08-26] MEDS: IPRATROPIUM BROM 0.5 MG/2.5ML INH SOL NEB SCH ×6 (02:20→21:54)
[2019-08-26] MEDS: ACETYLCYSTEINE 10 %(100MG/ML) SOL 4ML NEB SCH ×6 (02:20→21:54)
[2019-08-26] MEDS: ALBUTEROL SULF 2.5 MG/0.5ML(0.5%) NEB SOLN NEB SCH ×6 (02:25→21:54)
[2019-08-26 05:00] VITALS: BP 124/70
[2019-08-26] MEDS: ACCU-CHEK COMFORT CURVE STRIP VI SCH ×4 (06:10→22:37)
[2019-08-26] MEDS: InsuLIN REG 1unit/0.01ml Soln (100units/ml) SC SCH ×4 (06:10→22:30)
[2019-08-26] MEDS: SILDENAFIL CITRATE 20 MG TAB PO SCH ×3 (08:49→20:09)
[2019-08-26] MEDS: metFORMIN HYDROCHLORIDE 500 MG TAB PO SCH ×2 (08:50→17:54)
[2019-08-26 09:00] VITALS: BP 128/80
[2019-08-26] MEDS: cefTRIAXone 1GM/50ML D5W 50 ML IV SCH (09:40)
[2019-08-26] MEDS: AZITHROMYCIN 250 MG TAB PO SCH (10:52)
[2019-08-26] MEDS: GABAPENTIN 300 MG CAP PO SCH ×2 (10:52→22:37)
[2019-08-26] MEDS: DIGOXIN 0.125 MG TAB PO SCH (10:53)
[2019-08-26] MEDS: PANTOPRAZOLE 40 MG TAB PO SCH (10:53)
[2019-08-26] MEDS: SERTRALINE HCL 50 MG TAB PO SCH (10:53)
[2019-08-26] MEDS: FUROSEMIDE 40 MG TAB PO SCH (10:54)
[2019-08-26] MEDS: THIAMINE HCL 100 MG TAB PO SCH (10:57)
[2019-08-26 13:00] VITALS: BP 133/71
[2019-08-26 17:00] VITALS: BP 114/63
[2019-08-26] MEDS: RIVAROXABAN 20 MG TAB PO SCH (17:54)
[2019-08-26 22:00] VITALS: BP 118/83
[2019-08-27] VITALS (7 sets, daily range): BP systolic 98–137; BP diastolic 66–87
[2019-08-27] MEDS: HYDROcodone-ACET 10/325MG TAB PO PRN (00:31)
[2019-08-27] MEDS: ACETYLCYSTEINE 10 %(100MG/ML) SOL 4ML NEB SCH ×6 (02:03→21:55)
[2019-08-27] MEDS: ALBUTEROL SULF 2.5 MG/0.5ML(0.5%) NEB SOLN NEB SCH ×6 (02:03→21:55)
[2019-08-27] MEDS: IPRATROPIUM BROM 0.5 MG/2.5ML INH SOL NEB SCH ×6 (02:03→21:55)
[2019-08-27] MEDS: HYDROmorphone HCL 2 MG/ML VL IV PRN ×6 (02:40→23:50)
[2019-08-27] MEDS: ACCU-CHEK COMFORT CURVE STRIP VI SCH ×4 (06:20→22:00)
[2019-08-27] MEDS: InsuLIN REG 1unit/0.01ml Soln (100units/ml) SC SCH ×4 (06:20→22:00)
[2019-08-27] MEDS: cefTRIAXone 1GM/50ML D5W 50 ML IV SCH (08:35)
[2019-08-27] MEDS: SILDENAFIL CITRATE 20 MG TAB PO SCH ×3 (08:35→21:36)
[2019-08-27] MEDS: metFORMIN HYDROCHLORIDE 500 MG TAB PO SCH ×2 (08:35→18:23)
[2019-08-27] MEDS: GABAPENTIN 300 MG CAP PO SCH ×2 (10:35→23:37)
[2019-08-27] MEDS: AZITHROMYCIN 250 MG TAB PO SCH (10:35)
[2019-08-27] MEDS: THIAMINE HCL 100 MG TAB PO SCH (10:35)
[2019-08-27] MEDS: PANTOPRAZOLE 40 MG TAB PO SCH (10:35)
[2019-08-27] MEDS: FUROSEMIDE 40 MG TAB PO SCH (10:36)
[2019-08-27] MEDS: DIGOXIN 0.125 MG TAB PO SCH (10:36)
[2019-08-27] MEDS: SERTRALINE HCL 50 MG TAB PO SCH (10:36)
[2019-08-27] MEDS ORDERED: PANT40T PO (10:42)
[2019-08-27] MEDS ORDERED: RIV20T PO (10:42)
[2019-08-27 11:56] LABS: Basophils # (auto) 0 10 ^3/uL (0-0.2); Basophils % (auto) 0.7 % (0.0-2.0); Eosinophils # (auto) 0.3 10 ^3/uL (0-0.8); Eosinophils % (auto) 4.2 % (0.0-7.0); Hematocrit 38.4 % (41.0-53.0); Hemoglobin 12.4 g/dL (13.5-17.5); Lymphocytes % (auto) 16.1 % (10.0-50.0); Mean Corpuscular Hemoglobin 29.8 pg (28.0-32.0); Mean Corpuscular Hgb Conc. 32.2 g/dL (32.0-36.0); Mean Corpuscular Volume 92.7 fL (80.0-100.0); Monocytes # (auto) 0.5 10 ^3/uL (0-1.3); Monocytes % (auto) 8.9 % (0.0-12.0); Neutrophils # (auto) 4.1 10 ^3/uL (1.6-8.6); Neutrophils % (auto) 70.1 % (37.0-80.0); Platelet Count (auto) 147 10^3/uL (140-450); Red Blood Cells 4.15 10^6/uL (4.5-5.90); Red Cell Distribution Width 17.2 % (11.8-14.3); White Blood Cell 5.9 10^3/uL (4.4-10.8)
[2019-08-27 12:03] LABS: Albumin 3.1 g/dL (3.4-5.0); Calcium 9.2 mg/dL (8.5-10.1); Potassium 3.4 mmol/L (3.5-5.1)
[2019-08-27 12:07] LABS: BUN/Creatinine Ratio 18.3; Bilirubin, Total 0.4 mg/dL (0.2-1.0); Total Protein 7.2 g/dL (6.4-8.2)
[2019-08-27] MEDS ORDERED: POTASSIUM CHL 20 Meq TABLET PO ONE (12:45)
[2019-08-27] MEDS: RIVAROXABAN 20 MG TAB PO SCH (18:23)
[2019-08-28] VITALS (9 sets, daily range): BP systolic 96–141; BP diastolic 65–90
[2019-08-28] MEDS: ALBUTEROL SULF 2.5 MG/0.5ML(0.5%) NEB SOLN NEB SCH ×5 (02:20→22:13)
[2019-08-28] MEDS: IPRATROPIUM BROM 0.5 MG/2.5ML INH SOL NEB SCH ×6 (02:20→22:13)
[2019-08-28] MEDS: ACETYLCYSTEINE 10 %(100MG/ML) SOL 4ML NEB SCH ×6 (02:20→22:13)
[2019-08-28] MEDS: HYDROcodone-ACET 10/325MG TAB PO PRN ×3 (02:43→21:32)
[2019-08-28] MEDS: HYDROmorphone HCL 2 MG/ML VL IV PRN ×4 (05:32→22:30)
[2019-08-28] MEDS: metFORMIN HYDROCHLORIDE 500 MG TAB PO SCH ×2 (09:25→17:47)
[2019-08-28] MEDS: cefTRIAXone 1GM/50ML D5W 50 ML IV SCH (09:25)
[2019-08-28] MEDS: SILDENAFIL CITRATE 20 MG TAB PO SCH ×3 (09:25→21:22)
[2019-08-28] MEDS: DIGOXIN 0.125 MG TAB PO SCH (10:25)
[2019-08-28] MEDS: POTASSIUM CHL 20 Meq TABLET PO SCH (10:25)
[2019-08-28] MEDS: GABAPENTIN 300 MG CAP PO SCH ×2 (10:26→21:23)
[2019-08-28] MEDS: PANTOPRAZOLE 40 MG TAB PO SCH (10:26)
[2019-08-28] MEDS: SERTRALINE HCL 50 MG TAB PO SCH (10:26)
[2019-08-28] MEDS: AZITHROMYCIN 250 MG TAB PO SCH (10:26)
[2019-08-28] MEDS: THIAMINE HCL 100 MG TAB PO SCH (10:26)
[2019-08-28] MEDS: FUROSEMIDE 40 MG TAB PO SCH (10:26)
[2019-08-28] MEDS: InsuLIN REG 1unit/0.01ml Soln (100units/ml) SC SCH ×3 (12:44→21:25)
[2019-08-28] MEDS: ACCU-CHEK COMFORT CURVE STRIP VI SCH ×3 (12:45→21:23)
[2019-08-28] MEDS ORDERED: FUROSEMIDE 40 MG/4 ML VIAL IV ONE (14:00)
[2019-08-28] MEDS: RIVAROXABAN 20 MG TAB PO SCH (17:47)
[2019-08-28] MEDS: FUROSEMIDE 40 MG/4 ML VIAL IV SCH (21:00)
[2019-08-28] MEDS: TEMAZEPAM 15 MG CAP PO PRN (21:26)
[2019-08-29] MEDS: ALBUTEROL SULF 2.5 MG/0.5ML(0.5%) NEB SOLN NEB SCH ×6 (02:28→22:10)
[2019-08-29] MEDS: ACETYLCYSTEINE 10 %(100MG/ML) SOL 4ML NEB SCH ×6 (02:28→22:10)
[2019-08-29] MEDS: IPRATROPIUM BROM 0.5 MG/2.5ML INH SOL NEB SCH ×6 (02:28→22:10)
[2019-08-29] MEDS: HYDROmorphone HCL 2 MG/ML VL IV PRN ×3 (03:33→21:31)
[2019-08-29 04:41] VITALS: BP 124/59
[2019-08-29] MEDS: FUROSEMIDE 40 MG/4 ML VIAL IV SCH ×2 (05:17→17:55)
[2019-08-29] MEDS: ACCU-CHEK COMFORT CURVE STRIP VI SCH ×4 (05:18→21:30)
[2019-08-29] MEDS: HYDROcodone-ACET 10/325MG TAB PO PRN (05:18)
[2019-08-29] MEDS: InsuLIN REG 1unit/0.01ml Soln (100units/ml) SC SCH ×4 (05:20→21:30)
[2019-08-29 05:53] LABS: BUN/Creatinine Ratio 19.7; Calcium 9.2 mg/dL (8.5-10.1); Potassium 3.7 mmol/L (3.5-5.1)
[2019-08-29] MEDS: cefTRIAXone 1GM/50ML D5W 50 ML IV SCH (08:21)
[2019-08-29] MEDS: SILDENAFIL CITRATE 20 MG TAB PO SCH ×3 (08:22→21:30)
[2019-08-29] MEDS: metFORMIN HYDROCHLORIDE 500 MG TAB PO SCH ×2 (08:22→17:43)
[2019-08-29 09:00] VITALS: BP 105/66
[2019-08-29] MEDS: LORazepam 2MG/ML-1ML VIAL IV PRN ×2 (10:31→21:30)
[2019-08-29] MEDS: POTASSIUM CHL 20 Meq TABLET PO SCH (10:32)
[2019-08-29] MEDS: PANTOPRAZOLE 40 MG TAB PO SCH (10:32)
[2019-08-29] MEDS: GABAPENTIN 300 MG CAP PO SCH ×2 (10:32→21:30)
[2019-08-29] MEDS: THIAMINE HCL 100 MG TAB PO SCH (10:32)
[2019-08-29] MEDS: AZITHROMYCIN 250 MG TAB PO SCH (10:32)
[2019-08-29] MEDS: SERTRALINE HCL 50 MG TAB PO SCH (10:32)
[2019-08-29] MEDS: DIGOXIN 0.125 MG TAB PO SCH (10:33)
[2019-08-29 13:00] VITALS: BP 106/68
[2019-08-29 17:00] VITALS: BP 95/56
[2019-08-29] MEDS: RIVAROXABAN 20 MG TAB PO SCH (17:42)
[2019-08-29 22:00] VITALS: BP 118/66
[2019-08-30] MEDS: IPRATROPIUM BROM 0.5 MG/2.5ML INH SOL NEB SCH ×6 (02:31→21:59)
[2019-08-30] MEDS: ACETYLCYSTEINE 10 %(100MG/ML) SOL 4ML NEB SCH ×6 (02:32→21:59)
[2019-08-30] MEDS: ALBUTEROL SULF 2.5 MG/0.5ML(0.5%) NEB SOLN NEB SCH ×6 (02:32→21:59)
[2019-08-30 04:55] VITALS: BP 117/73
[2019-08-30] MEDS: HYDROmorphone HCL 2 MG/ML VL IV PRN (05:21)
[2019-08-30 05:38] LABS: Basophils # (auto) 0.1 10 ^3/uL (0-0.2); Basophils % (auto) 1.2 % (0.0-2.0); Eosinophils # (auto) 0.2 10 ^3/uL (0-0.8); Eosinophils % (auto) 2.8 % (0.0-7.0); Hematocrit 41.5 % (41.0-53.0); Hemoglobin 13.7 g/dL (13.5-17.5); Lymphocytes # (auto) 1.5 10 ^3/uL (0.4-5.4); Lymphocytes % (auto) 18.7 % (10.0-50.0); Mean Corpuscular Hemoglobin 30.3 pg (28.0-32.0); Mean Corpuscular Volume 91.8 fL (80.0-100.0); Monocytes # (auto) 0.6 10 ^3/uL (0-1.3); Monocytes % (auto) 7.9 % (0.0-12.0); Neutrophils # (auto) 5.6 10 ^3/uL (1.6-8.6); Neutrophils % (auto) 69.4 % (37.0-80.0); Nucleated Red Blood Cells % 0.1 %; Platelet Count (auto) 220 10^3/uL (140-450); Red Blood Cells 4.52 10^6/uL (4.5-5.90); Red Cell Distribution Width 17.2 % (11.8-14.3)
[2019-08-30 05:58] LABS: Potassium 3.9 mmol/L (3.5-5.1)
[2019-08-30 06:06] LABS: Albumin 3.4 g/dL (3.4-5.0); BUN/Creatinine Ratio 19.5; Bilirubin, Total 0.6 mg/dL (0.2-1.0); Calcium 9.6 mg/dL (8.5-10.1); Magnesium 2.4 mg/dL (1.6-2.6); Phosphorus 3.6 mg/dL (2.5-4.90); Total Protein 7.8 g/dL (6.4-8.2)
[2019-08-30 06:13] LABS: INR 1.38 (0.9-1.15)
[2019-08-30 06:23] LABS: Partial Thromboplastin Time 92.1 sec (23.64-32.05)
[2019-08-30] MEDS: FUROSEMIDE 40 MG/4 ML VIAL IV SCH ×2 (06:49→18:38)
[2019-08-30] MEDS: ACCU-CHEK COMFORT CURVE STRIP VI SCH ×4 (06:50→22:00)
[2019-08-30] MEDS: HYDROcodone-ACET 10/325MG TAB PO PRN ×3 (06:50→19:24)
[2019-08-30] MEDS: InsuLIN REG 1unit/0.01ml Soln (100units/ml) SC SCH ×4 (06:50→22:43)
[2019-08-30 09:00] VITALS: BP 91/50
[2019-08-30] MEDS: SERTRALINE HCL 50 MG TAB PO SCH (09:27)
[2019-08-30] MEDS: SILDENAFIL CITRATE 20 MG TAB PO SCH ×3 (09:28→19:54)
[2019-08-30] MEDS: POTASSIUM CHL 20 Meq TABLET PO SCH (09:28)
[2019-08-30] MEDS: PANTOPRAZOLE 40 MG TAB PO SCH (09:28)
[2019-08-30] MEDS: cefTRIAXone 1GM/50ML D5W 50 ML IV SCH (09:28)
[2019-08-30] MEDS: THIAMINE HCL 100 MG TAB PO SCH (09:28)
[2019-08-30] MEDS: GABAPENTIN 300 MG CAP PO SCH ×2 (09:28→22:42)
[2019-08-30] MEDS: DIGOXIN 0.125 MG TAB PO SCH (09:29)
[2019-08-30] MEDS: BUDESONIDE (INHALATION) 0.5 MG/2 ML NEB NEB SCH ×2 (10:23→18:36)
[2019-08-30] MEDS ORDERED: levoFLOXacin 250 MG TAB PO ONE (11:30)
[2019-08-30 13:00] VITALS: BP 91/68
[2019-08-30] MEDS: methylPREDNISolone SOD SUCC 40 MG/ML VL IV SCH ×2 (13:03→22:42)
[2019-08-30] MEDS: LORazepam 2MG/ML-1ML VIAL IV PRN (16:02)
[2019-08-30 17:00] VITALS: BP 114/74
[2019-08-30] MEDS: RIVAROXABAN 20 MG TAB PO SCH (18:00)
[2019-08-30 21:59] VITALS: BP 122/67
[2019-08-30 23:32] VITALS: BP 108/77
[2019-08-31] VITALS (9 sets, daily range): BP systolic 101–137; BP diastolic 74–93
[2019-08-31] MEDS: HYDROcodone-ACET 10/325MG TAB PO PRN ×2 (01:24→21:35)
[2019-08-31] MEDS: ALBUTEROL SULF 2.5 MG/0.5ML(0.5%) NEB SOLN NEB SCH ×6 (02:12→22:12)
[2019-08-31] MEDS: ACETYLCYSTEINE 10 %(100MG/ML) SOL 4ML NEB SCH ×6 (02:12→22:12)
[2019-08-31] MEDS: IPRATROPIUM BROM 0.5 MG/2.5ML INH SOL NEB SCH ×6 (02:12→22:12)
[2019-08-31] MEDS: FUROSEMIDE 40 MG/4 ML VIAL IV SCH ×2 (06:01→18:09)
[2019-08-31] MEDS: methylPREDNISolone SOD SUCC 40 MG/ML VL IV SCH ×3 (06:01→22:15)
[2019-08-31] MEDS: InsuLIN REG 1unit/0.01ml Soln (100units/ml) SC SCH ×4 (06:07→22:16)
[2019-08-31] MEDS: ACCU-CHEK COMFORT CURVE STRIP VI SCH ×4 (06:07→22:16)
[2019-08-31] MEDS: SILDENAFIL CITRATE 20 MG TAB PO SCH ×3 (08:16→20:00)
[2019-08-31] MEDS: PANTOPRAZOLE 40 MG TAB PO SCH (10:21)
[2019-08-31] MEDS: DIGOXIN 0.125 MG TAB PO SCH (10:22)
[2019-08-31] MEDS: THIAMINE HCL 100 MG TAB PO SCH (10:22)
[2019-08-31] MEDS: levoFLOXacin 250 MG TAB PO SCH (10:23)
[2019-08-31] MEDS: GABAPENTIN 300 MG CAP PO SCH ×2 (10:23→22:15)
[2019-08-31] MEDS: POTASSIUM CHL 20 Meq TABLET PO SCH (10:23)
[2019-08-31] MEDS: SERTRALINE HCL 50 MG TAB PO SCH (10:23)
[2019-08-31] MEDS: chlordiazePOXIDE HCL 5 MG CAP PO PRN ×2 (10:56→15:53)
[2019-08-31] MEDS: BUDESONIDE (INHALATION) 0.5 MG/2 ML NEB NEB SCH ×2 (11:12→22:12)
[2019-08-31] MEDS ORDERED: HYDROmorphone HCL 2 MG/ML VL IV ONE (13:30)
[2019-08-31] MEDS: ACETAMINOPHEN 325 MG TAB PO PRN (15:54)
[2019-08-31] MEDS: RIVAROXABAN 20 MG TAB PO SCH (18:09)
[2019-08-31] MEDS: TEMAZEPAM 15 MG CAP PO PRN (23:00)
[2019-09-01] VITALS: BP 114/82
[2019-09-01 04:00] VITALS: BP 115/75
[2019-09-01] MEDS: methylPREDNISolone SOD SUCC 40 MG/ML VL IV SCH ×2 (05:56→17:55)
[2019-09-01] MEDS: FUROSEMIDE 40 MG/4 ML VIAL IV SCH (05:56)
[2019-09-01] MEDS: HYDROcodone-ACET 10/325MG TAB PO PRN ×4 (06:00→19:26)
[2019-09-01] MEDS: ALBUTEROL SULF 2.5 MG/0.5ML(0.5%) NEB SOLN NEB SCH ×5 (06:20→21:59)
[2019-09-01] MEDS: BUDESONIDE (INHALATION) 0.5 MG/2 ML NEB NEB SCH ×2 (06:20→22:00)
[2019-09-01] MEDS: ACETYLCYSTEINE 10 %(100MG/ML) SOL 4ML NEB SCH ×5 (06:20→22:00)
[2019-09-01] MEDS: IPRATROPIUM BROM 0.5 MG/2.5ML INH SOL NEB SCH ×5 (06:20→21:59)
[2019-09-01] MEDS: InsuLIN REG 1unit/0.01ml Soln (100units/ml) SC SCH ×4 (06:33→21:34)
[2019-09-01] MEDS: ACCU-CHEK COMFORT CURVE STRIP VI SCH ×4 (06:34→22:05)
[2019-09-01 07:40] VITALS: BP 93/62
[2019-09-01] MEDS: SILDENAFIL CITRATE 20 MG TAB PO SCH ×3 (08:23→19:26)
[2019-09-01] MEDS: PANTOPRAZOLE 40 MG TAB PO SCH (10:17)
[2019-09-01] MEDS: levoFLOXacin 250 MG TAB PO SCH (10:17)
[2019-09-01] MEDS: POTASSIUM CHL 20 Meq TABLET PO SCH (10:17)
[2019-09-01] MEDS: THIAMINE HCL 100 MG TAB PO SCH (10:17)
[2019-09-01] MEDS: DIGOXIN 0.125 MG TAB PO SCH (10:18)
[2019-09-01] MEDS: GABAPENTIN 300 MG CAP PO SCH ×2 (10:18→22:05)
[2019-09-01] MEDS: SERTRALINE HCL 50 MG TAB PO SCH (10:18)
[2019-09-01 11:40] VITALS: BP 106/77
[2019-09-01 15:40] VITALS: BP 115/82
[2019-09-01] MEDS: RIVAROXABAN 20 MG TAB PO SCH (17:55)
[2019-09-01 20:00] VITALS: BP 119/83
[2019-09-01] MEDS: TEMAZEPAM 15 MG CAP PO PRN (21:32)
[2019-09-02] VITALS: BP 125/90
[2019-09-02] MEDS: IPRATROPIUM BROM 0.5 MG/2.5ML INH SOL NEB SCH ×6 (02:00→21:57)
[2019-09-02] MEDS: ACETYLCYSTEINE 10 %(100MG/ML) SOL 4ML NEB SCH ×6 (02:00→21:57)
[2019-09-02] MEDS: ALBUTEROL SULF 2.5 MG/0.5ML(0.5%) NEB SOLN NEB SCH ×6 (02:00→21:57)
[2019-09-02] MEDS: HYDROcodone-ACET 10/325MG TAB PO PRN ×3 (03:39→22:20)
[2019-09-02 03:57] LABS: Calcium 9.3 mg/dL (8.5-10.1); Potassium 4.5 mmol/L (3.5-5.1)
[2019-09-02 04:00] VITALS: BP 136/96
[2019-09-02 04:00] LABS: BUN/Creatinine Ratio 26.1
[2019-09-02] MEDS: methylPREDNISolone SOD SUCC 40 MG/ML VL IV SCH ×2 (06:00→18:56)
[2019-09-02] MEDS: ACCU-CHEK COMFORT CURVE STRIP VI SCH ×4 (06:52→22:20)
[2019-09-02] MEDS: InsuLIN REG 1unit/0.01ml Soln (100units/ml) SC SCH ×4 (06:55→22:21)
[2019-09-02] MEDS: BUDESONIDE (INHALATION) 0.5 MG/2 ML NEB NEB SCH ×2 (06:55→21:57)
[2019-09-02 08:00] VITALS: BP 129/83
[2019-09-02] MEDS: levoFLOXacin 250 MG TAB PO SCH (09:32)
[2019-09-02] MEDS: PANTOPRAZOLE 40 MG TAB PO SCH (09:33)
[2019-09-02] MEDS: SERTRALINE HCL 50 MG TAB PO SCH (09:33)
[2019-09-02] MEDS: SILDENAFIL CITRATE 20 MG TAB PO SCH ×3 (09:33→20:21)
[2019-09-02] MEDS: DIGOXIN 0.125 MG TAB PO SCH (09:33)
[2019-09-02] MEDS: POTASSIUM CHL 20 Meq TABLET PO SCH (09:33)
[2019-09-02] MEDS: THIAMINE HCL 100 MG TAB PO SCH (09:33)
[2019-09-02] MEDS: GABAPENTIN 300 MG CAP PO SCH ×2 (09:33→22:20)
[2019-09-02 12:00] VITALS: BP 110/62
[2019-09-02] MEDS: FUROSEMIDE 40 MG TAB PO SCH (13:35)
[2019-09-02] MEDS: HYDROmorphone HCL 2 MG/ML VL IV PRN ×2 (14:28→20:02)
[2019-09-02 16:00] VITALS: BP 106/72
[2019-09-02] MEDS: RIVAROXABAN 20 MG TAB PO SCH (18:56)
[2019-09-02 20:00] VITALS: BP 103/74
[2019-09-02] MEDS: TEMAZEPAM 15 MG CAP PO PRN (22:20)
[2019-09-03] VITALS: BP 126/86
[2019-09-03] MEDS: ACETYLCYSTEINE 10 %(100MG/ML) SOL 4ML NEB SCH ×6 (02:00→23:00)
[2019-09-03] MEDS: IPRATROPIUM BROM 0.5 MG/2.5ML INH SOL NEB SCH ×6 (02:00→23:00)
[2019-09-03] MEDS: ALBUTEROL SULF 2.5 MG/0.5ML(0.5%) NEB SOLN NEB SCH ×6 (02:00→23:00)
[2019-09-03] MEDS: HYDROmorphone HCL 2 MG/ML VL IV PRN ×2 (03:56→10:09)
[2019-09-03 04:00] VITALS: BP 138/93
[2019-09-03] MEDS: BUDESONIDE (INHALATION) 0.5 MG/2 ML NEB NEB SCH ×2 (06:00→23:00)
[2019-09-03] MEDS: ACCU-CHEK COMFORT CURVE STRIP VI SCH ×4 (06:28→22:00)
[2019-09-03] MEDS: methylPREDNISolone SOD SUCC 40 MG/ML VL IV SCH ×2 (06:28→17:58)
[2019-09-03] MEDS: InsuLIN REG 1unit/0.01ml Soln (100units/ml) SC SCH ×4 (06:30→22:00)
[2019-09-03] MEDS: HYDROcodone-ACET 10/325MG TAB PO PRN ×3 (06:40→20:26)
[2019-09-03 07:40] VITALS: BP 121/79
[2019-09-03] MEDS: SILDENAFIL CITRATE 20 MG TAB PO SCH ×3 (08:42→20:26)
[2019-09-03 08:43] LABS: Hematocrit 42.9 % (41.0-53.0); Mean Corpuscular Hgb Conc. 32.7 g/dL (32.0-36.0); Mean Corpuscular Volume 91.8 fL (80.0-100.0); Platelet Count (auto) 225 10^3/uL (140-450); Red Blood Cells 4.67 10^6/uL (4.5-5.90); Red Cell Distribution Width 16.9 % (11.8-14.3); White Blood Cell 10.6 10^3/uL (4.4-10.8)
[2019-09-03 08:52] LABS: Basophils % (manual) 0 (0.0-2.0); Blast Cells 0; Metamyelocytes % 0; Myelocytes % 0; Promyelocytes % 0; Reactive Lymphocytes 0
[2019-09-03 09:02] LABS: Calcium 9.5 mg/dL (8.5-10.1); Potassium 4.5 mmol/L (3.5-5.1)
[2019-09-03 09:03] LABS: Band Neutrophils % (manual) 2; Eosinophils % (manual) 1 (0-7); Lymphocytes % (manual) 8 (10.0-50.0); Monocytes % (manual) 2 (0-12)
[2019-09-03 09:05] LABS: BUN/Creatinine Ratio 23.5
[2019-09-03] MEDS: DIGOXIN 0.125 MG TAB PO SCH (10:12)
[2019-09-03] MEDS: PANTOPRAZOLE 40 MG TAB PO SCH (10:12)
[2019-09-03] MEDS: FUROSEMIDE 40 MG TAB PO SCH (10:12)
[2019-09-03] MEDS: levoFLOXacin 250 MG TAB PO SCH (10:13)
[2019-09-03] MEDS: SERTRALINE HCL 50 MG TAB PO SCH (10:19)
[2019-09-03] MEDS: THIAMINE HCL 100 MG TAB PO SCH (10:19)
[2019-09-03] MEDS: GABAPENTIN 300 MG CAP PO SCH ×2 (10:19→22:00)
[2019-09-03] MEDS: POTASSIUM CHL 10 Meq TABLET PO SCH (10:21)
[2019-09-03 11:40] VITALS: BP 112/80
[2019-09-03] MEDS ORDERED: DIGO0.25 PO (13:14)
[2019-09-03] MEDS ORDERED: THIA100T10 PO (13:14)
[2019-09-03] MEDS ORDERED: SERT50TA PO (13:14)
[2019-09-03] MEDS ORDERED: PRED20TA2 PO (13:14)
[2019-09-03] MEDS ORDERED: MIRT15TA PO (14:10)
[2019-09-03] MEDS ORDERED: HYDROmorphone HCL 2 MG/ML VL IV ONE (14:15)
[2019-09-03 15:40] VITALS: BP 114/86
[2019-09-03] MEDS: RIVAROXABAN 20 MG TAB PO SCH (17:58)
[2019-09-03 22:00] VITALS: BP 141/76
[2019-09-04] VITALS (7 sets, daily range): BP systolic 101–141; BP diastolic 58–93
[2019-09-04] MEDS: ACETYLCYSTEINE 10 %(100MG/ML) SOL 4ML NEB SCH ×3 (02:13→10:47)
[2019-09-04] MEDS: IPRATROPIUM BROM 0.5 MG/2.5ML INH SOL NEB SCH ×4 (02:14→18:29)
[2019-09-04] MEDS: ALBUTEROL SULF 2.5 MG/0.5ML(0.5%) NEB SOLN NEB SCH ×4 (02:14→18:29)
[2019-09-04] MEDS: chlordiazePOXIDE HCL 5 MG CAP PO PRN ×3 (04:06→18:51)
[2019-09-04] MEDS: HYDROcodone-ACET 10/325MG TAB PO PRN ×3 (04:06→20:21)
[2019-09-04] MEDS: methylPREDNISolone SOD SUCC 40 MG/ML VL IV SCH (05:36)
[2019-09-04] MEDS: InsuLIN REG 1unit/0.01ml Soln (100units/ml) SC SCH ×4 (06:21→21:37)
[2019-09-04] MEDS: ACCU-CHEK COMFORT CURVE STRIP VI SCH ×4 (06:28→21:33)
[2019-09-04] MEDS: SILDENAFIL CITRATE 20 MG TAB PO SCH ×3 (08:36→20:14)
[2019-09-04] MEDS: GABAPENTIN 300 MG CAP PO SCH ×2 (08:37→21:32)
[2019-09-04] MEDS: DIGOXIN 0.125 MG TAB PO SCH (08:37)
[2019-09-04] MEDS: THIAMINE HCL 100 MG TAB PO SCH (08:38)
[2019-09-04] MEDS: SERTRALINE HCL 50 MG TAB PO SCH (08:38)
[2019-09-04] MEDS: FUROSEMIDE 40 MG TAB PO SCH (08:38)
[2019-09-04] MEDS: PANTOPRAZOLE 40 MG TAB PO SCH (08:38)
[2019-09-04] MEDS: POTASSIUM CHL 10 Meq TABLET PO SCH (08:39)
[2019-09-04] MEDS: levoFLOXacin 250 MG TAB PO SCH (10:05)
[2019-09-04] MEDS: LORazepam 2MG/ML-1ML VIAL IV PRN ×2 (10:32→18:51)
[2019-09-04] MEDS: BUDESONIDE (INHALATION) 0.5 MG/2 ML NEB NEB SCH ×2 (10:47→18:29)
[2019-09-04] MEDS: RIVAROXABAN 20 MG TAB PO SCH (18:05)
[2019-09-05] MEDS: TEMAZEPAM 15 MG CAP PO PRN (01:45)
[2019-09-05] MEDS: HYDROcodone-ACET 10/325MG TAB PO PRN (05:23)
[2019-09-05 05:30] VITALS: BP 111/70
[2019-09-05] MEDS: ACCU-CHEK COMFORT CURVE STRIP VI SCH ×2 (06:19→11:46)
[2019-09-05] MEDS: InsuLIN REG 1unit/0.01ml Soln (100units/ml) SC SCH ×2 (06:21→11:47)
[2019-09-05] MEDS: BUDESONIDE (INHALATION) 0.5 MG/2 ML NEB NEB SCH (06:33)
[2019-09-05] MEDS: IPRATROPIUM BROM 0.5 MG/2.5ML INH SOL NEB SCH ×2 (06:33→11:44)
[2019-09-05] MEDS: ALBUTEROL SULF 2.5 MG/0.5ML(0.5%) NEB SOLN NEB SCH ×2 (06:33→11:45)
[2019-09-05] MEDS ORDERED: predniSONE 20 MG TAB PO SCH (10:00)
[2019-09-05] MEDS: THIAMINE HCL 100 MG TAB PO SCH (10:05)
[2019-09-05] MEDS: GABAPENTIN 300 MG CAP PO SCH (10:05)
[2019-09-05] MEDS: POTASSIUM CHL 10 Meq TABLET PO SCH (10:05)
[2019-09-05] MEDS: SILDENAFIL CITRATE 20 MG TAB PO SCH ×2 (10:05→14:00)
[2019-09-05] MEDS: levoFLOXacin 250 MG TAB PO SCH (10:05)
[2019-09-05] MEDS: DIGOXIN 0.125 MG TAB PO SCH (10:06)
[2019-09-05] MEDS: SERTRALINE HCL 50 MG TAB PO SCH (10:06)
[2019-09-05] MEDS: PANTOPRAZOLE 40 MG TAB PO SCH (10:06)
[2019-09-05] MEDS: LORazepam 2MG/ML-1ML VIAL IV PRN (10:07)
[2019-09-05] MEDS: FUROSEMIDE 40 MG TAB PO SCH (10:07)
[2019-09-05] MEDS: ACETAMINOPHEN 325 MG TAB PO PRN (10:07)
[2019-09-05] MEDS ORDERED: HYDROmorphone HCL 2 MG/ML VL IV ONE (10:15)
== END 2019-09-05 16:35 | disposition home health service (06) | DRG 871 ==
LOC: ER 20:47 → EDBD 20:47 → TELE-E-ADS 20:48 → DOU IN ICU 08-22 15:00 → TELE-CENTR 08-25 15:55 → TELE-EAST 08-25 23:35 → DOU IN ICU 08-30 21:07 → TELE-EAST 09-03 18:20 → TELE-WESTW 09-04 13:30
PROVIDERS: ADMIT Nurse Practitioner; ATTEND Internal Medicine
PROC: 5A09357 Assistance with Respiratory Ventilation, Less than 24 Consecutive Hours, Continuous Positive Airway Pressure (ICD-10-PCS; principal; 2019-08-26)
PROC: 5A09357 Assistance with Respiratory Ventilation, Less than 24 Consecutive Hours, Continuous Positive Airway Pressure (ICD-10-PCS; 2019-08-30)
PROC: 5A09357 Assistance with Respiratory Ventilation, Less than 24 Consecutive Hours, Continuous Positive Airway Pressure (ICD-10-PCS; 2019-09-01)
PROC: 5A09357 Assistance with Respiratory Ventilation, Less than 24 Consecutive Hours, Continuous Positive Airway Pressure (ICD-10-PCS; 2019-09-02)
PROC: 5A09357 Assistance with Respiratory Ventilation, Less than 24 Consecutive Hours, Continuous Positive Airway Pressure (ICD-10-PCS; 2019-09-03)
PROC: 5A09357 Assistance with Respiratory Ventilation, Less than 24 Consecutive Hours, Continuous Positive Airway Pressure (ICD-10-PCS; 2019-09-04)
PROC: 5A09357 Assistance with Respiratory Ventilation, Less than 24 Consecutive Hours, Continuous Positive Airway Pressure (ICD-10-PCS; 2019-09-05)
DX: A41.9 Sepsis, unspecified organism (principal); J18.9 Pneumonia, unspecified organism; J96.21 Acute and chronic respiratory failure with hypoxia; I50.33 Acute on chronic diastolic (congestive) heart failure; J44.1 Chronic obstructive pulmonary disease with (acute) exacerbation; D68.69 Other thrombophilia; J96.12 Chronic respiratory failure with hypercapnia; J44.0 Chronic obstructive pulmonary disease with (acute) lower respiratory infection; I48.19 Other persistent atrial fibrillation; I11.0 Hypertensive heart disease with heart failure; F17.210 Nicotine dependence, cigarettes, uncomplicated; E87.6 Hypokalemia; G89.29 Other chronic pain; I27.20 Pulmonary hypertension, unspecified; Z20.828 Contact with and (suspected) exposure to other viral communicable diseases; F41.9 Anxiety disorder, unspecified; E66.9 Obesity, unspecified; F32.9 Major depressive disorder, single episode, unspecified; E11.51 Type 2 diabetes mellitus with diabetic peripheral angiopathy without gangrene; Z79.899 Other long term (current) drug therapy; Z82.49 Family history of ischemic heart disease and other diseases of the circulatory system; Z83.3 Family history of diabetes mellitus; Z79.01 Long term (current) use of anticoagulants; S91.302A Unspecified open wound, left foot, initial encounter; X58.XXXA Exposure to other specified factors, initial encounter; Y93.89 Activity, other specified; Y92.89 Other specified places as the place of occurrence of the external cause; Y99.8 Other external cause status; Z68.31 Body mass index [BMI] 31.0-31.9, adult
CPT/HCPCS: 36415; 36600; 71045; 71250; 80048; 80053; 80162; 80202; 80307; 81001; 82728; 82805; 82962; 83605; 83615; 83735; 83880; 84100; 84443; 84484; 85007; 85025; 85027; 85379; 85610; 85730; 86141; 87040; 87070; 87077; 87081; 87186; 87205; 87804; 87880; 93005; 93306; 93970; 94640; 94660; 96365; 96366; 96368; 96375; 97116; 97530; 99291; A4618; G0378; J0696; J1815; J2405; J3490

== ENCOUNTER 2020-04-02 19:35 | Inpatient (IN) | payer OTHER, MEDICAID ==
[~2020-04-02] VITALS: Ht 190.5 cm; Wt 104.3 kg
[~2020-04-02 19:35] MED LIST changes: +DIGO0.25 PO; -DIGO0.2570 PO; +MIRT15TA PO; -POTA1TAB61 PO; +PRED20TA2 PO; +RIV20T PO; -SERT-160 PO; +SERT50TA PO; -SUCR1TAB38 OR; +THIA100T10 PO
[2020-04-02 23:49] LABS: Basophils # (auto) 0 10 ^3/uL (0-0.2); Basophils % (auto) 0.7 % (0.0-2.0); Eosinophils # (auto) 0.2 10 ^3/uL (0-0.8); Eosinophils % (auto) 4.7 % (0.0-7.0); Hematocrit 36.6 % (41.0-53.0); Hemoglobin 11.9 g/dL (13.5-17.5); Lymphocytes # (auto) 1.2 10 ^3/uL (0.4-5.4); Lymphocytes % (auto) 29.3 % (10.0-50.0); Mean Corpuscular Hemoglobin 31.4 pg (28.0-32.0); Mean Corpuscular Hgb Conc. 32.5 g/dL (32.0-36.0); Mean Corpuscular Volume 96.8 fL (80.0-100.0); Monocytes # (auto) 0.3 10 ^3/uL (0-1.3); Monocytes % (auto) 8.6 % (0.0-12.0); Neutrophils # (auto) 2.3 10 ^3/uL (1.6-8.6); Neutrophils % (auto) 56.7 % (37.0-80.0); Nucleated Red Blood Cells % 0.1 %; Platelet Count (auto) 191 10^3/uL (140-450); Red Blood Cells 3.78 10^6/uL (4.5-5.90)
[2020-04-02 23:58] LABS: Red Cell Distribution Width 24.6 % (11.8-14.3)
[2020-04-03 00:01] LABS: Albumin 3.1 g/dL (3.4-5.0); Anion Gap 7 (5-15); Blood Urea Nitrogen 9 mg/dL (7-18); Calcium 8.1 mg/dL (8.5-10.1); Carbon Dioxide 25 mmol/L (21-32); Chloride 111 mmol/L (98-107); Glucose 123 mg/dL (74-106); Magnesium 1.9 mg/dL (1.6-2.6); Potassium 3.8 mmol/L (3.5-5.1); Sodium 143 mmol/L (136-145)
[2020-04-03 00:03] LABS: Alanine Aminotransferase 15 U/L (16-61); Aspartate Aminotransferase 9 U/L (15-37); BUN/Creatinine Ratio 11.8; GFR African American 132 mL/min; GFR Non-African American 109 mL/min
[2020-04-03 00:04] LABS: INR 1.04 (0.9-1.15); Partial Thromboplastin Time 31.7 sec (23.0-31.2)
[2020-04-03 00:09] LABS: Alkaline Phosphatase 74 U/L (45-117); Bilirubin, Total 0.3 mg/dL (0.2-1.0); Total Protein 6.3 g/dL (6.4-8.2)
[2020-04-03] MEDS ORDERED: NITROGLYCERIN 0.4 MG SL TAB SL PRN (09:30)
[2020-04-03] MEDS ORDERED: ACETAMINOPHEN 500 MG TAB PO PRN (09:30)
[2020-04-03] MEDS ORDERED: MORPHINE SULF INJ 2 MG/ML SYRINGE 1ML IV PRN (09:30)
[2020-04-03] MEDS ORDERED: ONDANSETRON HCL 4 MG/2 ML VIAL IV PRN (09:30)
[2020-04-03] MEDS: methylPREDNISolone SOD SUCC 40 MG/ML VL IV SCH ×2 (10:44→21:47)
[2020-04-03] MEDS: AZITHROMYCIN 500MG/ 250ML 250 ML IV SCH (10:46)
[2020-04-03] MEDS: SERTRALINE HCL 50 MG TAB PO SCH (10:56)
[2020-04-03] MEDS: BUDESONIDE (INHALATION) 0.5 MG/2 ML NEB NEB SCH ×2 (10:58→22:00)
[2020-04-03] MEDS: NICOTINE 21MG/24 HR TOPICAL PATCH TD SCH (10:58)
[2020-04-03] MEDS: FAMOTIDINE 20 MG TAB PO SCH (10:59)
[2020-04-03] MEDS: PANTOPRAZOLE 40 MG TAB PO SCH (11:00)
[2020-04-03] MEDS: dilTIAZem 120MG ER CAP PO SCH (11:00)
[2020-04-03] MEDS: IPRATROPIUM BROM 0.5 MG/2.5ML INH SOL NEB SCH ×2 (12:00→18:00)
[2020-04-03] MEDS: ALBUTEROL SULF 2.5 MG/0.5ML(0.5%) NEB SOLN NEB SCH ×2 (12:00→18:00)
[2020-04-03] MEDS: HYDROcodone-ACET 5/325MG TAB PO PRN ×2 (14:48→23:15)
[2020-04-03] MEDS ORDERED: hydrALAZINE HCL 20 MG/ML VL IV PRN (15:00)
[2020-04-03] MEDS: MORPHINE SULF INJ 2 MG/ML SYRINGE 1ML IV PRN ×2 (17:44→18:55)
[2020-04-03] MEDS: RIVAROXABAN 20 MG TAB PO SCH (19:05)
[2020-04-04 00:28] VITALS: BP 128/78
[2020-04-04] MEDS: HYDROcodone-ACET 5/325MG TAB PO PRN ×3 (05:23→18:22)
[2020-04-04] MEDS: BUDESONIDE (INHALATION) 0.5 MG/2 ML NEB NEB SCH ×2 (07:09→18:00)
[2020-04-04] MEDS: ALBUTEROL SULF 2.5 MG/0.5ML(0.5%) NEB SOLN NEB SCH ×3 (07:09→18:00)
[2020-04-04] MEDS: IPRATROPIUM BROM 0.5 MG/2.5ML INH SOL NEB SCH ×3 (07:09→18:00)
[2020-04-04 08:15] LABS: Basophils # (auto) 0.1 10 ^3/uL (0-0.2); Basophils % (auto) 1.7 % (0.0-2.0); Calcium 8.8 mg/dL (8.5-10.1); Eosinophils # (auto) 0 10 ^3/uL (0-0.8); Hematocrit 36.9 % (41.0-53.0); Hemoglobin 11.8 g/dL (13.5-17.5); Lymphocytes # (auto) 0.5 10 ^3/uL (0.4-5.4); Lymphocytes % (auto) 9.3 % (10.0-50.0); Mean Corpuscular Hemoglobin 30.5 pg (28.0-32.0); Mean Corpuscular Volume 95.5 fL (80.0-100.0); Monocytes # (auto) 0.2 10 ^3/uL (0-1.3); Monocytes % (auto) 2.8 % (0.0-12.0); Neutrophils # (auto) 4.8 10 ^3/uL (1.6-8.6); Neutrophils % (auto) 86.2 % (37.0-80.0); Platelet Count (auto) 189 10^3/uL (140-450); Potassium 4.4 mmol/L (3.5-5.1); Red Blood Cells 3.87 10^6/uL (4.5-5.90); White Blood Cell 5.6 10^3/uL (4.4-10.8)
[2020-04-04 08:17] LABS: BUN/Creatinine Ratio 15.2
[2020-04-04 08:45] LABS: Red Cell Distribution Width 23.2 % (11.8-14.3)
[2020-04-04] MEDS: cefTRIAXone 1GM/50ML D5W 50 ML IV SCH (09:22)
[2020-04-04] MEDS: MORPHINE SULF INJ 2 MG/ML SYRINGE 1ML IV PRN ×2 (09:22→16:43)
[2020-04-04] MEDS: PANTOPRAZOLE 40 MG TAB PO SCH ×2 (10:00→10:33)
[2020-04-04] MEDS: FAMOTIDINE 20 MG TAB PO SCH (10:31)
[2020-04-04] MEDS: methylPREDNISolone SOD SUCC 40 MG/ML VL IV SCH ×2 (10:31→21:50)
[2020-04-04] MEDS: dilTIAZem 120MG ER CAP PO SCH (10:33)
[2020-04-04] MEDS: SERTRALINE HCL 50 MG TAB PO SCH (10:33)
[2020-04-04] MEDS: NICOTINE 21MG/24 HR TOPICAL PATCH TD SCH (10:34)
[2020-04-04] MEDS: AZITHROMYCIN 500MG/ 250ML 250 ML IV SCH (10:34)
[2020-04-04 12:29] LABS: Urine Bacteria NONE SEEN /hpf (None Seen); Urine Blood Negative /uL (Negative); Urine Mucus FEW (None Seen); Urine Specific Gravity 1.033 (1.001-1.035); Urine WBC 1 /hpf (0 - 3)
[2020-04-04 12:55] LABS: Amphetamine Screen, Urine NEGATIVE (NEGATIVE); Barbiturate Scree,Urine NEGATIVE (NEGATIVE); Benzodiazephine Screen, Urine NEGATIVE (NEGATIVE); Cannabinoid Screen, Urine NEGATIVE (NEGATIVE); Cocaine Screen, Urine NEGATIVE (NEGATIVE); Opiate Scree,Urine POSITIVE (NEGATIVE); Phencyclidine Screen, Urine NEGATIVE (NEGATIVE)
[2020-04-04] MEDS ORDERED: THIAMINE HCL 100 MG TAB PO ONE (15:45)
[2020-04-04] MEDS ORDERED: DEXTROSE (50%) 50ML SYRG IV PRN (16:00)
[2020-04-04] MEDS: ACCU-CHEK COMFORT CURVE STRIP VI SCH ×2 (17:17→22:22)
[2020-04-04] MEDS: InsuLIN REG 1unit/0.01ml Soln (100units/ml) SC SCH ×2 (17:18→21:51)
[2020-04-04] MEDS: RIVAROXABAN 20 MG TAB PO SCH (18:14)
[2020-04-05] MEDS: MORPHINE SULF INJ 2 MG/ML SYRINGE 1ML IV PRN ×4 (00:05→22:41)
[2020-04-05 00:25] VITALS: BP 128/78
[2020-04-05] MEDS: HYDROcodone-ACET 5/325MG TAB PO PRN ×4 (01:24→21:45)
[2020-04-05] MEDS: ALBUTEROL SULF 2.5 MG/0.5ML(0.5%) NEB SOLN NEB SCH ×3 (06:25→19:22)
[2020-04-05] MEDS: IPRATROPIUM BROM 0.5 MG/2.5ML INH SOL NEB SCH ×3 (06:25→19:22)
[2020-04-05] MEDS: BUDESONIDE (INHALATION) 0.5 MG/2 ML NEB NEB SCH ×2 (06:25→23:01)
[2020-04-05] MEDS: ACCU-CHEK COMFORT CURVE STRIP VI SCH ×4 (06:34→21:50)
[2020-04-05] MEDS: InsuLIN REG 1unit/0.01ml Soln (100units/ml) SC SCH ×4 (06:45→21:46)
[2020-04-05 06:46] LABS: Basophils # (auto) 0 10 ^3/uL (0-0.2); Basophils % (auto) 0.4 % (0.0-2.0); Eosinophils # (auto) 0 10 ^3/uL (0-0.8); Hematocrit 34.7 % (41.0-53.0); Hemoglobin 11.1 g/dL (13.5-17.5); Lymphocytes # (auto) 0.4 10 ^3/uL (0.4-5.4); Lymphocytes % (auto) 3.2 % (10.0-50.0); Mean Corpuscular Hemoglobin 30.7 pg (28.0-32.0); Mean Corpuscular Hgb Conc. 31.9 g/dL (32.0-36.0); Mean Corpuscular Volume 96.3 fL (80.0-100.0); Monocytes # (auto) 0.4 10 ^3/uL (0-1.3); Monocytes % (auto) 3.3 % (0.0-12.0); Neutrophils # (auto) 10.6 10 ^3/uL (1.6-8.6); Neutrophils % (auto) 93.1 % (37.0-80.0); Platelet Count (auto) 175 10^3/uL (140-450); White Blood Cell 11.4 10^3/uL (4.4-10.8)
[2020-04-05 07:00] LABS: BUN/Creatinine Ratio 27.8; Calcium 8.7 mg/dL (8.5-10.1); Magnesium 2.4 mg/dL (1.6-2.6); Potassium 4.9 mmol/L (3.5-5.1)
[2020-04-05 08:00] VITALS: BP 127/83
[2020-04-05] MEDS: cefTRIAXone 1GM/50ML D5W 50 ML IV SCH (09:45)
[2020-04-05] MEDS: methylPREDNISolone SOD SUCC 40 MG/ML VL IV SCH ×2 (09:45→21:49)
[2020-04-05] MEDS: FAMOTIDINE 20 MG TAB PO SCH (09:45)
[2020-04-05] MEDS: AZITHROMYCIN 500MG/ 250ML 250 ML IV SCH (09:45)
[2020-04-05] MEDS: dilTIAZem 120MG ER CAP PO SCH (09:46)
[2020-04-05] MEDS: PANTOPRAZOLE 40 MG TAB PO SCH (09:47)
[2020-04-05] MEDS: NICOTINE 21MG/24 HR TOPICAL PATCH TD SCH (09:47)
[2020-04-05] MEDS: FUROSEMIDE 40 MG TAB PO SCH (09:48)
[2020-04-05] MEDS: SERTRALINE HCL 50 MG TAB PO SCH (09:48)
[2020-04-05] MEDS: THIAMINE HCL 100 MG TAB PO SCH (09:49)
[2020-04-05] MEDS ORDERED: POTASSIUM CHL 10 Meq TABLET PO SCH (10:00)
[2020-04-05] MEDS ORDERED: HYDROmorphone HCL 2 MG/ML VL IV ONE (12:00)
[2020-04-05] MEDS: SILDENAFIL CITRATE 20 MG TAB PO SCH ×2 (15:15→21:50)
[2020-04-05 16:28] VITALS: BP 103/64
[2020-04-05] MEDS: RIVAROXABAN 20 MG TAB PO SCH (18:09)
[2020-04-05 22:00] VITALS: BP 107/73
[2020-04-06] MEDS: MORPHINE SULF INJ 2 MG/ML SYRINGE 1ML IV PRN ×3 (02:49→12:11)
[2020-04-06] MEDS: HYDROcodone-ACET 5/325MG TAB PO PRN (04:45)
[2020-04-06 04:59] LABS: Basophils # (auto) 0.1 10 ^3/uL (0-0.2); Basophils % (auto) 0.7 % (0.0-2.0); Eosinophils # (auto) 0 10 ^3/uL (0-0.8); Hematocrit 34.6 % (41.0-53.0); Hemoglobin 11.3 g/dL (13.5-17.5); Lymphocytes # (auto) 0.4 10 ^3/uL (0.4-5.4); Lymphocytes % (auto) 4.1 % (10.0-50.0); Mean Corpuscular Hgb Conc. 32.5 g/dL (32.0-36.0); Mean Corpuscular Volume 95.1 fL (80.0-100.0); Monocytes # (auto) 0.2 10 ^3/uL (0-1.3); Monocytes % (auto) 2.8 % (0.0-12.0); Neutrophils # (auto) 8.2 10 ^3/uL (1.6-8.6); Neutrophils % (auto) 92.4 % (37.0-80.0); Platelet Count (auto) 161 10^3/uL (140-450); Red Blood Cells 3.63 10^6/uL (4.5-5.90); White Blood Cell 8.9 10^3/uL (4.4-10.8)
[2020-04-06 05:20] LABS: Red Cell Distribution Width 22.6 % (11.8-14.3)
[2020-04-06 05:30] VITALS: BP 123/92
[2020-04-06] MEDS: ACCU-CHEK COMFORT CURVE STRIP VI SCH ×2 (06:40→11:44)
[2020-04-06] MEDS: SILDENAFIL CITRATE 20 MG TAB PO SCH ×2 (06:40→14:08)
[2020-04-06] MEDS: InsuLIN REG 1unit/0.01ml Soln (100units/ml) SC SCH ×2 (06:41→12:12)
[2020-04-06] MEDS: ALBUTEROL SULF 2.5 MG/0.5ML(0.5%) NEB SOLN NEB SCH ×2 (07:06→13:48)
[2020-04-06] MEDS: IPRATROPIUM BROM 0.5 MG/2.5ML INH SOL NEB SCH ×2 (07:06→13:48)
[2020-04-06 09:00] VITALS: BP 130/77
[2020-04-06] MEDS: cefTRIAXone 1GM/50ML D5W 50 ML IV SCH (09:17)
[2020-04-06] MEDS: AZITHROMYCIN 500MG/ 250ML 250 ML IV SCH (09:18)
[2020-04-06] MEDS: NICOTINE 21MG/24 HR TOPICAL PATCH TD SCH (09:18)
[2020-04-06] MEDS: dilTIAZem 120MG ER CAP PO SCH (09:26)
[2020-04-06] MEDS: PANTOPRAZOLE 40 MG TAB PO SCH (09:27)
[2020-04-06] MEDS: FUROSEMIDE 40 MG TAB PO SCH (09:27)
[2020-04-06] MEDS: FAMOTIDINE 20 MG TAB PO SCH (09:27)
[2020-04-06] MEDS: THIAMINE HCL 100 MG TAB PO SCH (09:28)
[2020-04-06] MEDS: methylPREDNISolone SOD SUCC 40 MG/ML VL IV SCH (09:28)
[2020-04-06] MEDS: SERTRALINE HCL 50 MG TAB PO SCH (09:29)
[2020-04-06] MEDS: BUDESONIDE (INHALATION) 0.5 MG/2 ML NEB NEB SCH (10:00)
[2020-04-06] MEDS ORDERED: DOXY-286 PO (12:46)
[2020-04-06] MEDS ORDERED: ALBUAER3 IN (12:46)
[2020-04-06] MEDS ORDERED: NIC21P TOP (12:46)
[2020-04-06 14:00] VITALS: BP 107/70
[2020-04-06 14:12] VITALS: BP 103/77
== END 2020-04-06 16:45 | disposition home or self-care (01) | DRG 189 ==
LOC: EDBD 19:35 → ER 19:55 → TELE 19:56 → TELE-CENTR 04-04 23:43
PROVIDERS: ADMIT Nurse Practitioner Acute Care; ATTEND Internal Medicine
DX: J96.21 Acute and chronic respiratory failure with hypoxia (principal); J44.1 Chronic obstructive pulmonary disease with (acute) exacerbation; I50.32 Chronic diastolic (congestive) heart failure; I27.20 Pulmonary hypertension, unspecified; E11.621 Type 2 diabetes mellitus with foot ulcer; E88.09 Other disorders of plasma-protein metabolism, not elsewhere classified; D64.9 Anemia, unspecified; I48.0 Paroxysmal atrial fibrillation; E66.9 Obesity, unspecified; D72.829 Elevated white blood cell count, unspecified; F17.210 Nicotine dependence, cigarettes, uncomplicated; F32.9 Major depressive disorder, single episode, unspecified; Z20.822 Contact with and (suspected) exposure to COVID-19; G89.29 Other chronic pain; I11.0 Hypertensive heart disease with heart failure; L97.529 Non-pressure chronic ulcer of other part of left foot with unspecified severity; T38.0X5A Adverse effect of glucocorticoids and synthetic analogues, initial encounter; Z79.899 Other long term (current) drug therapy; Z82.49 Family history of ischemic heart disease and other diseases of the circulatory system; Z83.3 Family history of diabetes mellitus; Y92.89 Other specified places as the place of occurrence of the external cause; Z88.8 Allergy status to other drugs, medicaments and biological substances; Z68.28 Body mass index [BMI] 28.0-28.9, adult
CPT/HCPCS: 36415; 71045; 80048; 80053; 80162; 80307; 81001; 82962; 83036; 83735; 83880; 84484; 85025; 85379; 85610; 85730; 87040; 87081; 87426; 87804; 93005; 94640; 96365; 97163; G0378; J0696; J1815; J2405

== ENCOUNTER 2020-05-28 23:52 | Inpatient (IN) | payer OTHER, MEDICAID ==
[~2020-05-28] VITALS: Ht 190.5 cm; Wt 102.1 kg
[~2020-05-28 23:52] MED LIST changes: +ALBUAER3 IN; +DOXY-286 PO; +MIRT-68 PO; -MIRT15TA PO; +NIC21P TOP
[2020-05-29 01:05] LABS: Alanine Aminotransferase 14 U/L (16-61); Albumin 3.1 g/dL (3.4-5.0); Anion Gap 7 (5-15); Aspartate Aminotransferase 11 U/L (15-37); BUN/Creatinine Ratio 13.5; Blood Urea Nitrogen 12 mg/dL (7-18); Calcium 8.9 mg/dL (8.5-10.1); Carbon Dioxide 27 mmol/L (21-32); Chloride 108 mmol/L (98-107); GFR African American 110 mL/min; GFR Non-African American 91 mL/min; Glucose 132 mg/dL (74-106); Potassium 4.4 mmol/L (3.5-5.1); Sodium 142 mmol/L (136-145)
[2020-05-29 01:10] LABS: Alkaline Phosphatase 70 U/L (45-117); Bilirubin, Total 0.3 mg/dL (0.2-1.0); Total Protein 6.3 g/dL (6.4-8.2)
[2020-05-29 01:18] LABS: Basophils # (auto) 0 10 ^3/uL (0-0.2); Basophils % (auto) 0.6 % (0.0-2.0); Eosinophils # (auto) 0.2 10 ^3/uL (0-0.8); Eosinophils % (auto) 2.9 % (0.0-7.0); Hematocrit 39.8 % (41.0-53.0); Hemoglobin 12.9 g/dL (13.5-17.5); Lymphocytes # (auto) 1.9 10 ^3/uL (0.4-5.4); Lymphocytes % (auto) 24.2 % (10.0-50.0); Mean Corpuscular Hgb Conc. 32.4 g/dL (32.0-36.0); Mean Corpuscular Volume 92.7 fL (80.0-100.0); Monocytes # (auto) 0.4 10 ^3/uL (0-1.3); Monocytes % (auto) 5.5 % (0.0-12.0); Neutrophils # (auto) 5.4 10 ^3/uL (1.6-8.6); Neutrophils % (auto) 66.8 % (37.0-80.0); Nucleated Red Blood Cells % 0.1 %; Platelet Count (auto) 215 10^3/uL (140-450); Red Blood Cells 4.29 10^6/uL (4.5-5.90); Red Cell Distribution Width 18.8 % (11.8-14.3)
[2020-05-29 01:22] LABS: INR 1.06 (0.9-1.15); Partial Thromboplastin Time 33.7 sec (23.0-31.2)
[2020-05-29] MEDS ORDERED: IOHEXOL 350 MG/ML 100ML IJ ONE (02:14)
[2020-05-29] MEDS ORDERED: MORPHINE SULFATE 4 MG/ML SYR/VIAL IV ONE (02:15)
[2020-05-29] MEDS ORDERED: HYDROcodone-ACET 5/325MG TAB PO PRN (06:15)
[2020-05-29] MEDS ORDERED: ONDANSETRON HCL 4 MG/2 ML VIAL IV PRN (06:15)
[2020-05-29] MEDS: HYDROmorphone HCL 2 MG/ML VL IV PRN ×3 (06:42→18:26)
[2020-05-29 07:45] LABS: Urine Bacteria NONE SEEN /hpf (None Seen); Urine Blood Negative /uL (Negative); Urine Budding Yeast OCCASIONAL /hpf (None Seen); Urine Mucus FEW (None Seen); Urine WBC 1 /hpf (0 - 3)
[2020-05-29 07:53] LABS: Urine Specific Gravity > 1.050 (1.001-1.035)
[2020-05-29 09:15] VITALS: BP 129/89
[2020-05-29 09:57] VITALS: BP 129/89
[2020-05-29] MEDS ORDERED: DEXTROSE (50%) 50ML SYRG IV PRN (11:00)
[2020-05-29] MEDS: InsuLIN REG 1unit/0.01ml Soln (100units/ml) SC SCH ×2 (11:30→16:58)
[2020-05-29 12:30] VITALS: BP 148/102
[2020-05-29] MEDS: ACCU-CHEK COMFORT CURVE STRIP VI SCH ×3 (13:05→16:57)
[2020-05-29 16:40] VITALS: BP 136/76
== END 2020-05-29 20:00 | disposition home or self-care (01) | DRG 313 ==
LOC: EDBD 23:52 → ER 23:54 → TELE 23:55 → TELE-EAST 05-29 09:20
PROVIDERS: ADMIT Internal Medicine; ATTEND Internal Medicine
DX: R07.9 Chest pain, unspecified (principal); I27.20 Pulmonary hypertension, unspecified; E11.40 Type 2 diabetes mellitus with diabetic neuropathy, unspecified; I11.0 Hypertensive heart disease with heart failure; I50.9 Heart failure, unspecified; Z20.822 Contact with and (suspected) exposure to COVID-19; E78.5 Hyperlipidemia, unspecified; I48.0 Paroxysmal atrial fibrillation; M06.9 Rheumatoid arthritis, unspecified; F32.9 Major depressive disorder, single episode, unspecified; J44.9 Chronic obstructive pulmonary disease, unspecified; M54.9 Dorsalgia, unspecified; F41.9 Anxiety disorder, unspecified; K21.9 Gastro-esophageal reflux disease without esophagitis; M19.90 Unspecified osteoarthritis, unspecified site; Z82.49 Family history of ischemic heart disease and other diseases of the circulatory system; Z79.01 Long term (current) use of anticoagulants; Z83.3 Family history of diabetes mellitus; Z88.8 Allergy status to other drugs, medicaments and biological substances; Z79.899 Other long term (current) drug therapy
CPT/HCPCS: 36415; 71045; 71260; 74177; 80053; 81001; 82962; 83605; 83880; 84484; 85025; 85610; 85730; 87426; 93005; 93306; 96374; G0378

== ENCOUNTER → 2021-02-12 | Outpatient (CLI) | payer OTHER ==
[~2021-02-12] VITALS: Ht 190.5 cm; Wt 105.2 kg
[~2021-02-12] MED LIST changes: +ADENOSINE 88 MG in GIVE UN-DILUTED 0 ML IV ONE; +ADENOSINE 90 MG/30 ML INJ IV ONE; -LISI-646 PO; +LISI20TA28 PO; -METO-169 PO; +METO-289 PO
== END | disposition home or self-care (01) ==
LOC: Rad HDHVI 12:32
PROVIDERS: ATTEND Internal Medicine Cardiovascular Disease
DX: I11.0 Hypertensive heart disease with heart failure (principal); I50.43 Acute on chronic combined systolic (congestive) and diastolic (congestive) heart failure; R06.02 Shortness of breath; I48.91 Unspecified atrial fibrillation; R00.0 Tachycardia, unspecified; E11.9 Type 2 diabetes mellitus without complications; Z82.49 Family history of ischemic heart disease and other diseases of the circulatory system
CPT/HCPCS: 78452; 93005; 96374; 96375; A9500; J0153

== ENCOUNTER 2021-02-25 04:59 | Emergency (ER) | payer OTHER, MEDICAID ==
[~2021-02-25] VITALS: Ht 182.9 cm; Wt 81.6 kg
[~2021-02-25 04:59] MED LIST changes: -ADENOSINE 88 MG in GIVE UN-DILUTED 0 ML IV ONE; -ADENOSINE 90 MG/30 ML INJ IV ONE
[2021-02-25] MEDS ORDERED: ONDANSETRON ODT 4 MG TAB PO ONE (07:00)
[2021-02-25] MEDS ORDERED: MORPHINE SULFATE INJECTION 2 MG/ML SYRG IM ONE (07:00)
[2021-02-25 08:44] VITALS: BP 160/80
== END 2021-02-25 08:49 | disposition home or self-care (01) ==
LOC: ER 04:59 → EDBD 04:59 → ER 08:23
DX: S39.012A Strain of muscle, fascia and tendon of lower back, initial encounter (principal); N50.3 Cyst of epididymis; N50.812 Left testicular pain; I11.0 Hypertensive heart disease with heart failure; I50.9 Heart failure, unspecified; J44.9 Chronic obstructive pulmonary disease, unspecified; E11.9 Type 2 diabetes mellitus without complications; Z87.39 Personal history of other diseases of the musculoskeletal system and connective tissue; X58.XXXA Exposure to other specified factors, initial encounter; Y93.89 Activity, other specified; Y92.89 Other specified places as the place of occurrence of the external cause; Y99.8 Other external cause status
CPT/HCPCS: 72100; 76870; 93005; 96372; 99285; J2270; Q0162

== ENCOUNTER 2023-02-12 15:58 | Emergency (ER) | payer OTHER, MEDICAID ==
[~2023-02-12] VITALS: Ht 190.5 cm; Wt 108.9 kg
[~2023-02-12 15:58] MED LIST changes: +GABA-1250 PO; -GABA300C10 PO; -LISI20TA28 PO; +LISI20TA56 PO; -MIRT-68 PO; +MIRT-93 PO
[2023-02-13] MEDS ORDERED: TRAM50TA2 PO (01:29)
[2023-02-13] MEDS ORDERED: predniSONE 20 MG TAB PO ONE (01:30)
[2023-02-13] MEDS ORDERED: HYDROcodone-ACET 5/325MG TAB PO ONE (01:30)
[2023-02-13 01:41] VITALS: BP 165/96; PULSE 112; RESP 20; TEMP 98.5; O2SAT 95
== END 2023-02-13 01:54 | disposition home or self-care (01) ==
LOC: EDBD 15:58 → ER 15:58 → EDUNIT# 15:58 → ER 02-13 01:54
DX: M48.54XA Collapsed vertebra, not elsewhere classified, thoracic region, initial encounter for fracture (principal); M51.37 Other intervertebral disc degeneration, lumbosacral region; I11.0 Hypertensive heart disease with heart failure; I50.9 Heart failure, unspecified; J44.9 Chronic obstructive pulmonary disease, unspecified; E11.9 Type 2 diabetes mellitus without complications; Z88.8 Allergy status to other drugs, medicaments and biological substances
CPT/HCPCS: 72131; 99284; J7512

== ENCOUNTER 2023-04-05 12:41 | Emergency (ER) | payer OTHER, MEDICAID ==
[~2023-04-05] VITALS: Ht 182.9 cm; Wt 110.0 kg
[~2023-04-05 12:41] MED LIST changes: +TRAM50TA2 PO
[2023-04-05] MEDS ORDERED: MEPERIDINE HCL (50 MG/ML) 1 ML VIAL IM ONE (13:30)
[2023-04-05] MEDS ORDERED: PROMETHAZINE HCL 25 MG/ML 1ML IM ONE (13:30)
[2023-04-05 14:23] VITALS: BP 112/78; PULSE 100; RESP 16; TEMP 97.7; O2SAT 95
== END 2023-04-05 14:30 | disposition home or self-care (01) ==
LOC: ER 12:41 → EDBD 12:41 → ER 14:29
DX: G89.29 Other chronic pain (principal); M54.50 Low back pain, unspecified; I11.0 Hypertensive heart disease with heart failure; I50.9 Heart failure, unspecified; J44.9 Chronic obstructive pulmonary disease, unspecified; E11.9 Type 2 diabetes mellitus without complications
CPT/HCPCS: 96372; 99284; J2175; J2550

== ENCOUNTER 2023-04-07 10:49 | Inpatient (IN) | payer OTHER, MEDICAID ==
[2023-04-07] VITALS (12 sets, daily range): BP systolic 98–142; BP diastolic 67–87; PULSE 99–125; RESP 17–30; TEMP 99–99.1; O2SAT 84–97
[~2023-04-07] VITALS: Ht 185.4 cm; Wt 91.3 kg
[2023-04-07] MEDS: methylPREDNISolone SOD SUCC 125 MG/2 ML VL ONE ×2 (11:15→12:23)
[2023-04-07] MEDS: FAMOTIDINE (10MG/ML) 2ML VL IV ONE ×2 (11:15→11:18)
[2023-04-07] MEDS: ALBUTEROL SULF 2.5 MG/0.5ML(0.5%) NEB SOLN HHN ONE ×2 (11:17→13:30)
[2023-04-07] MEDS: IPRATROPIUM BROM 0.5 MG/2.5ML INH SOL HHN ONE (11:17)
[2023-04-07] MEDS: methylPREDNISolone SOD SUCC 125 MG/2 ML VL IV ONE ×2 (11:19→12:23)
[2023-04-07 11:24] LABS: Basophils # (auto) 0.1 10 ^3/uL (0-0.2); Basophils % (auto) 0.7 % (0.0-2.0); Eosinophils # (auto) 0.1 10 ^3/uL (0-0.8); Eosinophils % (auto) 1.5 % (0.0-7.0); Hematocrit 36.2 % (41.0-53.0); Hemoglobin 11.4 g/dL (13.5-17.5); Lymphocytes # (auto) 1.1 10 ^3/uL (0.4-5.4); Lymphocytes % (auto) 13.4 % (10.0-50.0); Mean Corpuscular Hemoglobin 27.6 pg (28.0-32.0); Mean Corpuscular Hgb Conc. 31.6 g/dL (32.0-36.0); Mean Corpuscular Volume 87.4 fL (80.0-100.0); Monocytes # (auto) 0.6 10 ^3/uL (0-1.3); Monocytes % (auto) 6.9 % (0.0-12.0); Neutrophils # (auto) 6.5 10 ^3/uL (1.6-8.6); Neutrophils % (auto) 77.5 % (37.0-80.0); Nucleated Red Blood Cells % 0.1 %; Red Blood Cells 4.14 10^6/uL (4.5-5.90); White Blood Cell 8.3 10^3/uL (4.4-10.8)
[2023-04-07] MEDS: diphenhdrAMINE HCL 50 MG/1 ML VL IV ONE (11:26)
[2023-04-07] MEDS: ETOMIDATE (2MG/ML) 20ML VIAL IV ONE ×3 (11:38→11:39)
[2023-04-07] MEDS: SUCCINYLCHOLINE CHLORIDE 20 MG/ML 10ML VIAL IV ONE ×3 (11:38→11:40)
[2023-04-07 11:54] LABS: Albumin 3.9 g/dL (3.2-4.8); Alkaline Phosphatase 106 U/L (46-116); Anion Gap 9 (5-15); Aspartate Aminotransferase 21 U/L (13-40); BUN/Creatinine Ratio 10.9 (10.0-20.0); Blood Urea Nitrogen 11 mg/dL (9-23); Calcium 9.1 mg/dL (8.5-10.1); Carbon Dioxide 24 mmol/L (20-30); Chloride 102 mmol/L (98-107); Glucose 103 mg/dL (74-106); Sodium 135 mmol/L (136-145)
[2023-04-07 11:55] LABS: Alanine Aminotransferase 9 U/L (7-40); Bilirubin, Total 0.7 mg/dL (0.2-1.0); Total Protein 6.4 g/dL (5.7-8.2)
[2023-04-07] MEDS: PROPOFOL 100 ML IV ONE (12:09)
[2023-04-07] MEDS: fentaNYL CITRATE 100 MCG/2 ML VL IV ONE ×2 (12:10→12:14)
[2023-04-07] MEDS: MIDAZOLAM HCL 2MG/2ML 2ml VIAL (1mg/ml) ONE ×2 (12:12)
[2023-04-07] MEDS: fentaNYL CITRATE 5 ML ONE (12:12)
[2023-04-07] MEDS: MIDAZOLAM HCL 5 MG/ML-1ML VIAL IV ONE (12:12)
[2023-04-07] MEDS: PHENYLEPHRINE IV 250 ML IV ONE (12:18)
[2023-04-07] MEDS: SODIUM CHLORIDE 0.9% 500 ML IV ONE (12:19)
[2023-04-07] MEDS: NOREPINEPHRINE 8 MG/250ML KIT 250 ML IV ONE (12:23)
[2023-04-07] MEDS ORDERED: GLYCOPYRROLATE 0.2 MG/ML 1ML VIAL ONE (12:50)
[2023-04-07] MEDS ORDERED: LIDOCAINE 2% JELLY 11ml (GLYDO) ONE (12:50)
[2023-04-07] MEDS ORDERED: MIDAZOLAM HCL 5 MG/ML-1ML VIAL ONE (12:50)
[2023-04-07] MEDS ORDERED: LIDOCAINE 2%HCL (LOCAL ANESTH.) INJ 20ML MDV ONE (12:50)
[2023-04-07] MEDS ORDERED: SODIUM CHLORIDE LOCK 10 ML ONE (12:50)
[2023-04-07] MEDS ORDERED: EPINEPHrine HCL 1 MG/1 ML AMP ONE (12:50)
[2023-04-07] MEDS ORDERED: NALOXONE HCL 0.4 MG/ML VIAL ONE (12:51)
[2023-04-07] MEDS ORDERED: fentaNYL CITRATE 100 MCG/2 ML VL ONE (12:51)
[2023-04-07] MEDS ORDERED: FLUMAZENIL 0.1 MG/ML INJ 10ML MDV IV ONE (12:51)
[2023-04-07] MEDS: PROPOFOL 100 ML IV SCH (13:10)
[2023-04-07] MEDS: PHENYLEPHRINE IV 250 ML IV SCH (13:11)
[2023-04-07] MEDS: NOREPINEPHRINE 8 MG/250ML KIT 250 ML IV SCH (13:14)
[2023-04-07 13:24] LABS: Base Excess -8.2 mmol/L (-2.0-2.0)
[2023-04-07 13:26] LABS: COVID19 ANTIGEN SOFIA FIA NEGATIVE (NEGATIVE); Rapid Influenza A Negative (Negative); Rapid Influenza B Negative (Negative)
[2023-04-07] MEDS ORDERED: VANCOMYCIN PER PHARMACY 0 MG IV SCH ×2 (13:45→14:00)
[2023-04-07] MEDS ORDERED: DEXTROSE (50%) 50ML SYRG IV PRN (13:45)
[2023-04-07] MEDS ORDERED: ONDANSETRON HCL 4 MG/2 ML VIAL IV PRN (13:45)
[2023-04-07 13:48] LABS: Lactic Acid w/Reflex 2.4 mmol/L (0.4-2.0)
[2023-04-07] MEDS: methylPREDNISolone SOD SUCC 125 MG/2 ML VL IV SCH (14:00)
[2023-04-07] MEDS ORDERED: ALBUTEROL SULF 2.5 MG/0.5ML(0.5%) NEB SOLN NEB SCH (14:00)
[2023-04-07 14:30] LABS: INR 1.14 (0.9-1.15); Prothrombin Time 11.9 sec (9.3-11.8)
[2023-04-07] MEDS: PIPERACILLIN-TAZOB 3.375GM 100 ML IV SCH (14:41)
[2023-04-07] MEDS: ALBUTEROL SULF 2.5 MG/0.5ML(0.5%) NEB SOLN NEB SCH (14:46)
[2023-04-07] MEDS: IPRATROPIUM BROM 0.5 MG/2.5ML INH SOL NEB SCH (14:47)
[2023-04-07 15:29] LABS: Base Excess -7.8 mmol/L (-2.0-2.0)
[2023-04-07] MEDS: ACCU-CHEK COMFORT CURVE STRIP VI SCH (17:39)
[2023-04-07] MEDS: VANCOMYCIN 1GM/200ML 200 ML IV ONE (17:40)
[2023-04-07] MEDS ORDERED: InsuLIN REG 1unit/0.01ml Soln (100units/ml) SC SCH (18:00)
[2023-04-07] MEDS ORDERED: ACCU-CHEK COMFORT CURVE STRIP VI SCH (18:00)
[2023-04-07] MEDS ORDERED: PIPERACILLIN-TAZOB 3.375GM 100 ML IV SCH (18:00)
[2023-04-07 18:26] LABS: Hematocrit 30.7 % (41.0-53.0); Hemoglobin 9.5 g/dL (13.5-17.5)
[2023-04-07] MEDS: diphenhdrAMINE HCL 50 MG/1 ML VL IV SCH (18:38)
[2023-04-07] MEDS: InsuLIN REG 1unit/0.01ml Soln (100units/ml) SC SCH (18:39)
[2023-04-07] MEDS: fentaNYL Drip 2500mCg/250mlNS 250 ML IV ONE (18:40)
[2023-04-07] MEDS: FUROSEMIDE 40 MG/4 ML VIAL IV SCH (18:42)
[2023-04-07] MEDS: fentaNYL Drip 2500mCg/250mlNS 250 ML IV SCH (20:52)
[2023-04-07] MEDS: FAMOTIDINE (10MG/ML) 2ML VL IV SCH (21:58)
[2023-04-08] VITALS (32 sets, daily range): BP systolic 80–132; BP diastolic 53–91; PULSE 94–107; RESP 23–26; TEMP 99.3–99.5; O2SAT 90–98
[2023-04-08 05:35] LABS: Base Excess -0.8 mmol/L (-2.0-2.0)
[2023-04-08] MEDS: VANCOMYCIN 1GM/200ML 200 ML IV SCH (06:06)
[2023-04-08 06:55] LABS: Hematocrit 31.9 % (41.0-53.0); Hemoglobin 10.1 g/dL (13.5-17.5); Mean Corpuscular Hemoglobin 27.7 pg (28.0-32.0); Mean Corpuscular Hgb Conc. 31.6 g/dL (32.0-36.0); Mean Corpuscular Volume 87.7 fL (80.0-100.0); Red Blood Cells 3.64 10^6/uL (4.5-5.90); Red Cell Distribution Width 19.4 % (11.8-14.3); White Blood Cell 10.1 10^3/uL (4.4-10.8)
[2023-04-08 07:12] LABS: Albumin 3.3 g/dL (3.2-4.8); Alkaline Phosphatase 83 U/L (46-116); Anion Gap 9 (5-15); Aspartate Aminotransferase 11 U/L (13-40); BUN/Creatinine Ratio 13.6 (10.0-20.0); Bilirubin, Total 0.4 mg/dL (0.2-1.0); Blood Urea Nitrogen 14 mg/dL (9-23); Calcium 8.3 mg/dL (8.7-10.4); Carbon Dioxide 23 mmol/L (20-30); Chloride 106 mmol/L (98-107); Glucose 164 mg/dL (74-106); Potassium 3.6 mmol/L (3.5-5.1); Sodium 138 mmol/L (136-145); Total Protein 5.6 g/dL (5.7-8.2)
[2023-04-08 07:13] LABS: Alanine Aminotransferase < 9 U/L (7-40)
[2023-04-08 07:24] LABS: Basophils % (manual) 0 (0.0-2.0); Blast Cells 0; Eosinophils % (manual) 0 (0-7); Metamyelocytes % 0; Myelocytes % 0; Promyelocytes % 0; Reactive Lymphocytes 0
[2023-04-08 08:47] LABS: Band Neutrophils % (manual) 10; Lymphocytes % (manual) 5 (10.0-50.0); Monocytes % (manual) 4 (0-12); Platelet Estimate Adequate
[2023-04-08] MEDS: PANTOPRAZOLE 40 MG/10 ML VIAL INJ IV ONE (12:52)
[2023-04-08] MEDS: CEFEPIME 2GM/50ML NS 50 ML IV SCH (13:47)
[2023-04-08] MEDS: methylPREDNISolone SOD SUCC 40 MG/ML VL IV SCH (13:47)
[2023-04-09] VITALS (108 sets, daily range): BP systolic 88–143; BP diastolic 59–101; PULSE 72–109; RESP 17–24; TEMP 97.7–99.5; O2SAT 89–99
[2023-04-09 03:02] LABS: Eosinophils # (auto) 0 10 ^3/uL (0-0.8); Hemoglobin 11.2 g/dL (13.5-17.5); Lymphocytes # (auto) 0.3 10 ^3/uL (0.4-5.4); Neutrophils % (auto) 95.6 % (37.0-80.0)
[2023-04-09 03:05] LABS: Basophils # (auto) 0 10 ^3/uL (0-0.2); Hematocrit 36.4 % (41.0-53.0); Lymphocytes % (auto) 1.3 % (10.0-50.0); Mean Corpuscular Hemoglobin 27.3 pg (28.0-32.0); Mean Corpuscular Hgb Conc. 30.8 g/dL (32.0-36.0); Mean Corpuscular Volume 88.7 fL (80.0-100.0); Monocytes # (auto) 0.7 10 ^3/uL (0-1.3); Monocytes % (auto) 3.1 % (0.0-12.0); Neutrophils # (auto) 20.8 10 ^3/uL (1.6-8.6); Red Cell Distribution Width 19.8 % (11.8-14.3); White Blood Cell 21.7 10^3/uL (4.4-10.8)
[2023-04-09 03:07] LABS: Calcium 8.9 mg/dL (8.7-10.4); Chloride 105 mmol/L (98-107); Sodium 139 mmol/L (136-145)
[2023-04-09 03:08] LABS: Anion Gap 11 (5-15); Carbon Dioxide 23 mmol/L (20-30)
[2023-04-09 03:13] LABS: BUN/Creatinine Ratio 14.3 (10.0-20.0); Blood Urea Nitrogen 18 mg/dL (9-23)
[2023-04-09 03:25] LABS: Glucose 141 mg/dL (74-106)
[2023-04-09] MEDS: PANTOPRAZOLE 40 MG/10 ML VIAL INJ IV SCH (08:56)
[2023-04-09 09:06] LABS: Urine Epithelial Cast None Seen /hpf (<5)
[2023-04-09 09:13] LABS: Urine Bacteria NONE SEEN /hpf (None Seen); Urine Blood Negative /uL (Negative); Urine Clarity Clear (Clear); Urine Color Yellow (Yellow); Urine Mucus FEW (None Seen); Urine Protein, UAD 1+ (Negative); Urine Specific Gravity 1.036 (1.001-1.035); Urine Urobilinogen Normal (Negative); Urine WBC 1 /hpf (0 - 3); Urine pH 5.5 (5.0-8.0)
[2023-04-09 09:39] LABS: Base Excess -2.4 mmol/L (-2.0-2.0)
[2023-04-09 09:50] LABS: Albumin 3.7 g/dL (3.2-4.8); Bilirubin, Direct 0.2 mg/dL (<0.3); Bilirubin, Total 0.4 mg/dL (0.2-1.0); Total Protein 6.1 g/dL (5.7-8.2)
[2023-04-09] MEDS ORDERED: ALBUAER3 INH (10:17)
[2023-04-09] MEDS ORDERED: SERT-206 PO (10:24)
[2023-04-09] MEDS ORDERED: TAMS0.4C36 PO (10:24)
[2023-04-09] MEDS ORDERED: CLON0.1T PO (10:24)
[2023-04-09] MEDS: FUROSEMIDE 20 MG/2 ML VIAL IV ONE (13:11)
[2023-04-09] MEDS: methylPREDNISolone SOD SUCC 40 MG/ML VL IV SCH (22:14)
[2023-04-10] VITALS (110 sets, daily range): BP systolic 77–161; BP diastolic 28–99; PULSE 61–149; RESP 14–28; TEMP 97.5–100; O2SAT 83–100
[2023-04-10 04:18] LABS: Basophils # (auto) 0 10 ^3/uL (0-0.2); Eosinophils # (auto) 0 10 ^3/uL (0-0.8); Hemoglobin 10.6 g/dL (13.5-17.5); Lymphocytes # (auto) 0.4 10 ^3/uL (0.4-5.4); Lymphocytes % (auto) 2.5 % (10.0-50.0); Mean Corpuscular Hemoglobin 27.3 pg (28.0-32.0); Mean Corpuscular Hgb Conc. 31.1 g/dL (32.0-36.0); Mean Corpuscular Volume 87.5 fL (80.0-100.0); Monocytes # (auto) 0.4 10 ^3/uL (0-1.3); Neutrophils # (auto) 13.8 10 ^3/uL (1.6-8.6); Neutrophils % (auto) 94.5 % (37.0-80.0); Red Blood Cells 3.89 10^6/uL (4.5-5.90); Red Cell Distribution Width 19.3 % (11.8-14.3); White Blood Cell 14.6 10^3/uL (4.4-10.8)
[2023-04-10 04:24] LABS: Alkaline Phosphatase 67 U/L (46-116); Anion Gap 9 (5-15); BUN/Creatinine Ratio 21.5 (10.0-20.0); Blood Urea Nitrogen 23 mg/dL (9-23); Calcium 8.6 mg/dL (8.7-10.4); Carbon Dioxide 23 mmol/L (20-30); Chloride 108 mmol/L (98-107); Glucose 128 mg/dL (74-106); Sodium 140 mmol/L (136-145)
[2023-04-10 04:25] LABS: Albumin 3.2 g/dL (3.2-4.8); Aspartate Aminotransferase 18 U/L (13-40); Bilirubin, Total 0.4 mg/dL (0.2-1.0); Total Protein 5.4 g/dL (5.7-8.2)
[2023-04-10 04:42] LABS: Alanine Aminotransferase < 9 U/L (7-40)
[2023-04-10] MEDS: MIDAZOLAM DRIP 50 mg/50mL 50 ML IV SCH (08:45)
[2023-04-10] MEDS: THIAMINE 100mg/ml INJ (200mg/2ml VIAL) IV SCH (09:23)
[2023-04-10] MEDS: DIGOXIN 0.25 MG TAB PO ONE (09:23)
[2023-04-10] MEDS: FOLIC ACID 1 MG in D5W 5% 50 ML INJ SCH (11:34)
[2023-04-10] MEDS: SODIUM CHLORIDE 0.9% 1,000 ML IV SCH (12:44)
[2023-04-10] MEDS ORDERED: EPINEPHrine HCL 1 MG/1 ML AMP ONE (15:07)
[2023-04-10] MEDS ORDERED: LIDOCAINE 2%HCL (LOCAL ANESTH.) INJ 20ML MDV ONE (15:07)
[2023-04-10] MEDS ORDERED: LIDOCAINE 2% JELLY 11ml (GLYDO) ONE (15:07)
[2023-04-10] MEDS ORDERED: GLYCOPYRROLATE 0.2 MG/ML 1ML VIAL ONE (15:07)
[2023-04-10] MEDS: methylPREDNISolone SOD SUCC 40 MG/ML VL IV SCH (22:26)
[2023-04-11] VITALS (111 sets, daily range): BP systolic 99–237; BP diastolic 58–149; PULSE 56–76; RESP 13–28; TEMP 96.6–98.8; O2SAT 93–100
[2023-04-11 04:01] LABS: Basophils # (auto) 0 10 ^3/uL (0-0.2); Basophils % (auto) 0.1 % (0.0-2.0); Chloride 111 mmol/L (98-107); Eosinophils # (auto) 0 10 ^3/uL (0-0.8); Hematocrit 36.4 % (41.0-53.0); Hemoglobin 11.3 g/dL (13.5-17.5); Lymphocytes # (auto) 0.4 10 ^3/uL (0.4-5.4); Lymphocytes % (auto) 3.7 % (10.0-50.0); Mean Corpuscular Hemoglobin 28.2 pg (28.0-32.0); Mean Corpuscular Volume 90.9 fL (80.0-100.0); Monocytes # (auto) 0.5 10 ^3/uL (0-1.3); Monocytes % (auto) 4.9 % (0.0-12.0); Neutrophils # (auto) 9.7 10 ^3/uL (1.6-8.6); Neutrophils % (auto) 91.3 % (37.0-80.0); Nucleated Red Blood Cells % 0.1 %; Red Blood Cells 4.01 10^6/uL (4.5-5.90); Red Cell Distribution Width 19.9 % (11.8-14.3); White Blood Cell 10.7 10^3/uL (4.4-10.8)
[2023-04-11 04:02] LABS: Anion Gap 10 (5-15); Carbon Dioxide 20 mmol/L (20-30); Potassium 3.9 mmol/L (3.5-5.1); Sodium 141 mmol/L (136-145)
[2023-04-11 04:03] LABS: Calcium 8.8 mg/dL (8.7-10.4)
[2023-04-11 04:08] LABS: BUN/Creatinine Ratio 19.2 (10.0-20.0); Blood Urea Nitrogen 19 mg/dL (9-23); Glucose 120 mg/dL (74-106)
[2023-04-11] MEDS: DIGOXIN 0.25 MG TAB PO SCH (08:30)
[2023-04-12] VITALS (132 sets, daily range): BP systolic 32–247; BP diastolic 12–235; PULSE 59–130; RESP 17–52; TEMP 96.6–99.3; O2SAT 68–100
[2023-04-12 06:19] LABS: Anion Gap 6 (5-15); Carbon Dioxide 20 mmol/L (20-30); Chloride 114 mmol/L (98-107); Sodium 140 mmol/L (136-145)
[2023-04-12 06:20] LABS: Calcium 8.4 mg/dL (8.7-10.4)
[2023-04-12 06:25] LABS: BUN/Creatinine Ratio 26.3 (10.0-20.0); Blood Urea Nitrogen 20 mg/dL (9-23); Glucose 111 mg/dL (74-106)
[2023-04-12 06:39] LABS: Basophils # (auto) 0 10 ^3/uL (0-0.2); Eosinophils # (auto) 0 10 ^3/uL (0-0.8); Eosinophils % (auto) 0.3 % (0.0-7.0); Hematocrit 34.6 % (41.0-53.0); Hemoglobin 11.1 g/dL (13.5-17.5); Lymphocytes # (auto) 0.6 10 ^3/uL (0.4-5.4); Lymphocytes % (auto) 5.8 % (10.0-50.0); Mean Corpuscular Hemoglobin 28.4 pg (28.0-32.0); Mean Corpuscular Hgb Conc. 32.1 g/dL (32.0-36.0); Mean Corpuscular Volume 88.3 fL (80.0-100.0); Monocytes # (auto) 0.6 10 ^3/uL (0-1.3); Monocytes % (auto) 6.5 % (0.0-12.0); Neutrophils # (auto) 8.3 10 ^3/uL (1.6-8.6); Neutrophils % (auto) 87.4 % (37.0-80.0); Nucleated Red Blood Cells % 0.1 %; Red Blood Cells 3.92 10^6/uL (4.5-5.90); Red Cell Distribution Width 19.3 % (11.8-14.3); White Blood Cell 9.5 10^3/uL (4.4-10.8)
[2023-04-12 06:59] LABS: Base Excess -3.7 mmol/L (-2.0-2.0)
[2023-04-12] MEDS: HYDROCORTISONE SOD SUCC 100 MG/2ML INJ VIAL IV ONE (11:18)
[2023-04-12] MEDS: HYDROCORTISONE SOD SUCC 100 MG/2ML INJ VIAL ONE (11:25)
[2023-04-12] MEDS: SODIUM BICARB 8.4% 50Meq/50ml SYR Vial IV ONE ×2 (11:45→21:10)
[2023-04-12] MEDS: SODIUM BICARB 8.4% 50Meq/50ml SYR INJ ONE (11:45)
[2023-04-12] MEDS: AMIODARONE BOLUS KIT 100 ML IV ONE ×2 (12:00→12:01)
[2023-04-12] MEDS: AMIODARONE 450mg/250ml AE 250 ML IV SCH ×2 (12:00→18:00)
[2023-04-12] MEDS: SODIUM BICARB IV SCH (12:17)
[2023-04-12] MEDS: SODIUM CHLORIDE 0.9% IV SCH (12:17)
[2023-04-12] MEDS: AMIODARONE 450mg/250ml AE 250 ML IV ONE (12:17)
[2023-04-12] MEDS: SODIUM CHLORIDE 0.9% 1,000 ML IV ONE (12:45)
[2023-04-12] MEDS ORDERED: EPINEPHrine HCL 1 MG/1 ML AMP ONE (15:17)
[2023-04-12] MEDS ORDERED: GLYCOPYRROLATE 0.2 MG/ML 1ML VIAL ONE (15:17)
[2023-04-12] MEDS ORDERED: LIDOCAINE 2% JELLY 11ml (GLYDO) ONE (15:17)
[2023-04-12] MEDS ORDERED: LIDOCAINE 2%HCL (LOCAL ANESTH.) INJ 20ML MDV ONE (15:17)
[2023-04-12] MEDS: ROCURONIUM 10MG/ML 10ML VIAL IV ONE ×2 (18:28→18:30)
[2023-04-12 20:23] LABS: Base Excess -6.7 mmol/L (-2.0-2.0)
[2023-04-12] MEDS: FUROSEMIDE 20 MG/2 ML VIAL IV ONE (21:10)
[2023-04-13] VITALS (108 sets, daily range): BP systolic 87–164; BP diastolic 56–107; PULSE 53–96; RESP 16–26; TEMP 97.3–99.1; O2SAT 92–100
[2023-04-13 03:38] LABS: Chloride 117 mmol/L (98-107); Potassium 3.2 mmol/L (3.5-5.1)
[2023-04-13 03:39] LABS: Anion Gap 13 (5-15); Carbon Dioxide 18 mmol/L (20-30)
[2023-04-13 03:40] LABS: Calcium 7.9 mg/dL (8.7-10.4)
[2023-04-13 03:42] LABS: Basophils # (auto) 0 10 ^3/uL (0-0.2); Basophils % (auto) 0.3 % (0.0-2.0); Eosinophils # (auto) 0 10 ^3/uL (0-0.8); Hematocrit 34.6 % (41.0-53.0); Hemoglobin 10.9 g/dL (13.5-17.5); Lymphocytes # (auto) 0.5 10 ^3/uL (0.4-5.4); Lymphocytes % (auto) 5.6 % (10.0-50.0); Mean Corpuscular Hemoglobin 27.5 pg (28.0-32.0); Mean Corpuscular Hgb Conc. 31.6 g/dL (32.0-36.0); Mean Corpuscular Volume 87.1 fL (80.0-100.0); Monocytes # (auto) 0.7 10 ^3/uL (0-1.3); Neutrophils # (auto) 8.2 10 ^3/uL (1.6-8.6); Neutrophils % (auto) 87.1 % (37.0-80.0); Red Blood Cells 3.98 10^6/uL (4.5-5.90); Red Cell Distribution Width 19.2 % (11.8-14.3); White Blood Cell 9.4 10^3/uL (4.4-10.8)
[2023-04-13 03:44] LABS: Glucose 111 mg/dL (74-106)
[2023-04-13 03:45] LABS: BUN/Creatinine Ratio 26.7 (10.0-20.0)
[2023-04-13 03:47] LABS: Blood Urea Nitrogen 35 mg/dL (9-23); Sodium 148 mmol/L (136-145)
[2023-04-13 07:19] LABS: Base Excess -3.6 mmol/L (-2.0-2.0)
[2023-04-13 10:36] LABS: Base Excess -4.1 mmol/L (-2.0-2.0)
[2023-04-13] MEDS: POTASSIUM CHL 20MEQ/100ML 100 ML IV SCH (10:57)
[2023-04-13] MEDS: VANCOMYCIN 1GM/200ML 200 ML IV ONE (17:45)
[2023-04-13] MEDS: FUROSEMIDE 20 MG/2 ML VIAL IV ONE (21:41)
[2023-04-13 22:00] LABS: Base Excess -2.4 mmol/L (-2.0-2.0)
[2023-04-14] VITALS (108 sets, daily range): BP systolic 87–183; BP diastolic 64–177; PULSE 77–102; RESP 15–21; TEMP 97.7–98.7; O2SAT 78–98
[2023-04-14 04:11] LABS: Chloride 117 mmol/L (98-107); Potassium 3.5 mmol/L (3.5-5.1); Sodium 151 mmol/L (136-145)
[2023-04-14 04:12] LABS: Anion Gap 14 (5-15); Calcium 8.2 mg/dL (8.7-10.4); Carbon Dioxide 20 mmol/L (20-30)
[2023-04-14 04:17] LABS: BUN/Creatinine Ratio 25.1 (10.0-20.0); Glucose 126 mg/dL (74-106)
[2023-04-14 04:25] LABS: Blood Urea Nitrogen 45 mg/dL (9-23)
[2023-04-14] MEDS: SODIUM BICARB IV SCH (08:45)
[2023-04-14] MEDS: SODIUM CHLORIDE 0.9% IV SCH (08:45)
[2023-04-14] MEDS: FUROSEMIDE 20 MG/2 ML VIAL IV ONE (10:28)
[2023-04-14 10:30] LABS: Chloride 117 mmol/L (98-107); Potassium 4.3 mmol/L (3.5-5.1); Sodium 152 mmol/L (136-145)
[2023-04-14 10:31] LABS: Anion Gap 13 (5-15); Calcium 8.5 mg/dL (8.5-10.1); Carbon Dioxide 22 mmol/L (20-30)
[2023-04-14 10:36] LABS: BUN/Creatinine Ratio 30.4 (10.0-20.0); Glucose 116 mg/dL (74-106)
[2023-04-14 10:42] LABS: Blood Urea Nitrogen 55 mg/dL (9-23)
[2023-04-14 10:42] LABS: Basophils # (auto) 0.1 10 ^3/uL (0-0.2); Basophils % (auto) 0.7 % (0.0-2.0); Eosinophils # (auto) 0.1 10 ^3/uL (0-0.8); Eosinophils % (auto) 0.9 % (0.0-7.0); Hematocrit 33.9 % (41.0-53.0); Hemoglobin 10.5 g/dL (13.5-17.5); Lymphocytes # (auto) 0.6 10 ^3/uL (0.4-5.4); Lymphocytes % (auto) 5.3 % (10.0-50.0); Mean Corpuscular Hemoglobin 27.4 pg (28.0-32.0); Mean Corpuscular Hgb Conc. 31.1 g/dL (32.0-36.0); Monocytes % (auto) 8.4 % (0.0-12.0); Neutrophils # (auto) 10.2 10 ^3/uL (1.6-8.6); Neutrophils % (auto) 84.7 % (37.0-80.0); Red Blood Cells 3.85 10^6/uL (4.5-5.90); Red Cell Distribution Width 20.2 % (11.8-14.3)
[2023-04-14] MEDS: POTASSIUM CHL 20MEQ/100ML 100 ML IV ONE (11:06)
[2023-04-14] MEDS ORDERED: SODIUM BICARB 50mEq/50ml Vial 100 ML in D5W 5% 1,000 ML IV SCH (13:15)
[2023-04-14] MEDS: FUROSEMIDE 40 MG/4 ML VIAL IV ONE (14:56)
[2023-04-14] MEDS: LINEZOLID 600MG/300ML 300 ML IV SCH (15:03)
[2023-04-14] MEDS: SODIUM BICARB 50mEq/50ml Vial 100 ML in D5W 5% 1,000 ML IV SCH (17:18)
[2023-04-14] MEDS: FUROSEMIDE 40 MG/4 ML VIAL IV SCH (18:22)
[2023-04-15] VITALS (104 sets, daily range): BP systolic 65–191; BP diastolic 53–127; PULSE 66–123; RESP 18–24; TEMP 98.1–99.5; O2SAT 89–100
[2023-04-15 03:35] LABS: Eosinophils # (auto) 0 10 ^3/uL (0-0.8); Hemoglobin 10.8 g/dL (13.5-17.5); Mean Corpuscular Hgb Conc. 31.3 g/dL (32.0-36.0); Monocytes # (auto) 0.7 10 ^3/uL (0-1.3)
[2023-04-15 03:37] LABS: Basophils # (auto) 0.1 10 ^3/uL (0-0.2); Basophils % (auto) 0.5 % (0.0-2.0); Eosinophils % (auto) 0.3 % (0.0-7.0); Hematocrit 34.6 % (41.0-53.0); Lymphocytes # (auto) 0.2 10 ^3/uL (0.4-5.4); Lymphocytes % (auto) 1.9 % (10.0-50.0); Mean Corpuscular Hemoglobin 26.9 pg (28.0-32.0); Mean Corpuscular Volume 85.8 fL (80.0-100.0); Monocytes % (auto) 5.9 % (0.0-12.0); Neutrophils # (auto) 11.4 10 ^3/uL (1.6-8.6); Neutrophils % (auto) 91.4 % (37.0-80.0); Red Blood Cells 4.03 10^6/uL (4.5-5.90); Red Cell Distribution Width 19.4 % (11.8-14.3); White Blood Cell 12.4 10^3/uL (4.4-10.8)
[2023-04-15 03:49] LABS: Calcium 8.7 mg/dL (8.7-10.4); Chloride 112 mmol/L (98-107); Potassium 3.3 mmol/L (3.5-5.1); Sodium 149 mmol/L (136-145)
[2023-04-15 03:50] LABS: Anion Gap 9 (5-15); Carbon Dioxide 28 mmol/L (20-30)
[2023-04-15 03:56] LABS: BUN/Creatinine Ratio 22.2 (10.0-20.0)
[2023-04-15 04:04] LABS: Blood Urea Nitrogen 43 mg/dL (9-23); Glucose 220 mg/dL (74-106)
[2023-04-15 07:17] LABS: Base Excess 8.1 mmol/L (-2.0-2.0)
[2023-04-15] MEDS: NOREPINEPHRINE 8 MG/250ML KIT 250 ML IV SCH (11:30)
[2023-04-15] MEDS: LACTULOSE 20Gm/30ML SOLN PO ONE (12:55)
[2023-04-15 14:17] LABS: Base Excess 7.8 mmol/L (-2.0-2.0)
[2023-04-15] MEDS: CEFEPIME 2GM/50ML NS 50 ML IV SCH (17:37)
[2023-04-16] VITALS (107 sets, daily range): BP systolic 72–230; BP diastolic 43–100; PULSE 57–98; RESP 18–24; TEMP 97.9–99.5; O2SAT 92–100
[2023-04-16 04:09] LABS: Basophils # (auto) 0 10 ^3/uL (0-0.2); Basophils % (auto) 0.1 % (0.0-2.0); Eosinophils # (auto) 0.1 10 ^3/uL (0-0.8); Monocytes # (auto) 1.4 10 ^3/uL (0-1.3)
[2023-04-16 04:12] LABS: Eosinophils % (auto) 0.5 % (0.0-7.0); Hematocrit 36.4 % (41.0-53.0); Hemoglobin 11.1 g/dL (13.5-17.5); Lymphocytes # (auto) 0.8 10 ^3/uL (0.4-5.4); Lymphocytes % (auto) 6.4 % (10.0-50.0); Mean Corpuscular Hemoglobin 27.7 pg (28.0-32.0); Mean Corpuscular Hgb Conc. 30.4 g/dL (32.0-36.0); Mean Corpuscular Volume 91.2 fL (80.0-100.0); Monocytes % (auto) 11.5 % (0.0-12.0); Neutrophils # (auto) 10.2 10 ^3/uL (1.6-8.6); Neutrophils % (auto) 81.5 % (37.0-80.0); Red Cell Distribution Width 19.7 % (11.8-14.3); White Blood Cell 12.6 10^3/uL (4.4-10.8)
[2023-04-16 04:21] LABS: Anion Gap 8 (5-15); Carbon Dioxide 31 mmol/L (20-30); Chloride 110 mmol/L (98-107); Sodium 149 mmol/L (136-145)
[2023-04-16 04:22] LABS: Calcium 8.9 mg/dL (8.7-10.4)
[2023-04-16 04:27] LABS: BUN/Creatinine Ratio 20.5 (10.0-20.0); Blood Urea Nitrogen 45 mg/dL (9-23); Glucose 127 mg/dL (74-106)
[2023-04-16 05:07] LABS: Ovalocytes FEW; Platelet Estimate Decreased
[2023-04-16 05:08] LABS: Stomatocytes Mode
[2023-04-16 07:12] LABS: Base Excess 3.5 mmol/L (-2.0-2.0)
[2023-04-16 14:52] LABS: INR 1.18 (0.9-1.15); Prothrombin Time 12.3 sec (9.3-11.8)
[2023-04-16] MEDS: LIDOCAINE 1% (LOCAL ANESTH.) PF 5ml SDV ID ONE (15:45)
[2023-04-16 19:55] LABS: Base Excess 4.4 mmol/L (-2.0-2.0)
[2023-04-16] MEDS: SODIUM CHLOR 0.9% PF (SALINE LOCK) 10ML VIAL/SYR IV SCH (22:00)
[2023-04-17] VITALS (107 sets, daily range): BP systolic 81–217; BP diastolic 38–115; PULSE 64–95; RESP 11–22; TEMP 97.9–99.7; O2SAT 92–100
[2023-04-17 04:05] LABS: Basophils # (auto) 0 10 ^3/uL (0-0.2); Eosinophils # (auto) 0.3 10 ^3/uL (0-0.8)
[2023-04-17 04:08] LABS: Basophils % (auto) 0.3 % (0.0-2.0); Eosinophils % (auto) 2.5 % (0.0-7.0); Hemoglobin 10.7 g/dL (13.5-17.5); Lymphocytes # (auto) 0.8 10 ^3/uL (0.4-5.4); Lymphocytes % (auto) 7.1 % (10.0-50.0); Mean Corpuscular Hgb Conc. 30.5 g/dL (32.0-36.0); Mean Corpuscular Volume 88.4 fL (80.0-100.0); Monocytes % (auto) 8.7 % (0.0-12.0); Neutrophils % (auto) 81.4 % (37.0-80.0); Red Blood Cells 3.96 10^6/uL (4.5-5.90)
[2023-04-17 04:28] LABS: Alanine Aminotransferase 145 U/L (7-40); Albumin 3.1 g/dL (3.2-4.8); Alkaline Phosphatase 224 U/L (46-116); Anion Gap 8 (5-15); Aspartate Aminotransferase 207 U/L (13-40); BUN/Creatinine Ratio 23.6 (10.0-20.0); Bilirubin, Total 0.6 mg/dL (0.2-1.0); Blood Urea Nitrogen 53 mg/dL (9-23); Calcium 8.6 mg/dL (8.7-10.4); Carbon Dioxide 30 mmol/L (20-30); Chloride 111 mmol/L (98-107); Glucose 93 mg/dL (74-106); Potassium 3.5 mmol/L (3.5-5.1); Sodium 149 mmol/L (136-145); Total Protein 5.3 g/dL (5.7-8.2)
[2023-04-17 06:37] LABS: Base Excess -0.7 mmol/L (-2.0-2.0)
[2023-04-17 07:44] LABS: Base Excess 2.5 mmol/L (-2.0-2.0)
[2023-04-17] MEDS: DIGOXIN 0.25 MG TAB PO SCH (10:25)
[2023-04-17] MEDS: FUROSEMIDE 40 MG/4 ML VIAL IV SCH (10:26)
[2023-04-17] MEDS: NOREPINEPHRINE 8 MG/250ML KIT 250 ML IV SCH (18:14)
[2023-04-17] MEDS: DEXTROSE (50%) 50ML SYRG IV PRN (23:44)
[2023-04-18] VITALS (111 sets, daily range): BP systolic 65–255; BP diastolic 28–113; PULSE 56–91; RESP 12–22; TEMP 98.3–100.4; O2SAT 92–99
[2023-04-18 04:06] LABS: Basophils # (auto) 0.1 10 ^3/uL (0-0.2); Eosinophils # (auto) 0.3 10 ^3/uL (0-0.8); Eosinophils % (auto) 3.2 % (0.0-7.0); Hemoglobin 10.4 g/dL (13.5-17.5); Lymphocytes # (auto) 0.6 10 ^3/uL (0.4-5.4)
[2023-04-18 04:08] LABS: Basophils % (auto) 0.5 % (0.0-2.0); Hematocrit 33.4 % (41.0-53.0); Lymphocytes % (auto) 5.9 % (10.0-50.0); Mean Corpuscular Hemoglobin 27.1 pg (28.0-32.0); Mean Corpuscular Hgb Conc. 31.2 g/dL (32.0-36.0); Mean Corpuscular Volume 86.8 fL (80.0-100.0); Monocytes # (auto) 0.7 10 ^3/uL (0-1.3); Monocytes % (auto) 6.5 % (0.0-12.0); Neutrophils # (auto) 9.2 10 ^3/uL (1.6-8.6); Neutrophils % (auto) 83.9 % (37.0-80.0); Red Blood Cells 3.84 10^6/uL (4.5-5.90); Red Cell Distribution Width 18.9 % (11.8-14.3); White Blood Cell 10.9 10^3/uL (4.4-10.8)
[2023-04-18 04:29] LABS: Alanine Aminotransferase 93 U/L (7-40); Albumin 2.9 g/dL (3.2-4.8); Alkaline Phosphatase 211 U/L (46-116); Anion Gap 7 (5-15); Aspartate Aminotransferase 71 U/L (13-40); Bilirubin, Total 0.5 mg/dL (0.2-1.0); Blood Urea Nitrogen 58 mg/dL (9-23); Calcium 8.8 mg/dL (8.7-10.4); Carbon Dioxide 30 mmol/L (20-30); Chloride 111 mmol/L (98-107); Glucose 133 mg/dL (74-106); Potassium 3.3 mmol/L (3.5-5.1); Sodium 148 mmol/L (136-145); Total Protein 5.2 g/dL (5.7-8.2)
[2023-04-18] MEDS: ACETAMINOPHEN 650 mg PER 20.3 mL UD GT PRN (05:50)
[2023-04-18] MEDS: POTASSIUM CHL 20MEQ/100ML 100 ML IV ONE (10:10)
[2023-04-18] MEDS: FUROSEMIDE 20 MG/2 ML VIAL IV SCH (10:13)
[2023-04-18] MEDS: DOXYCYCLINE 100MG/250ML 250 ML IV SCH (18:21)
[2023-04-18] MEDS: ENOXAPARIN SOD 120 MG/0.8 ML SYRINGE SC SCH (21:10)
[2023-04-18] MEDS ORDERED: ENOXAPARIN SOD 100 MG/1 ML SYRINGE SC SCH (22:00)
[2023-04-19] VITALS (111 sets, daily range): BP systolic 87–162; BP diastolic 42–100; PULSE 68–108; RESP 13–21; TEMP 99–100.3; O2SAT 91–100
[2023-04-19] MEDS: Glucerna 1.2 Cal 1Liter BOTTLE GT SCH (02:02)
[2023-04-19 03:58] LABS: Basophils # (auto) 0.1 10 ^3/uL (0-0.2); Basophils % (auto) 0.7 % (0.0-2.0); Eosinophils # (auto) 0.3 10 ^3/uL (0-0.8); Eosinophils % (auto) 2.9 % (0.0-7.0); Hematocrit 35.3 % (41.0-53.0); Hemoglobin 10.9 g/dL (13.5-17.5); Lymphocytes # (auto) 0.8 10 ^3/uL (0.4-5.4); Lymphocytes % (auto) 7.8 % (10.0-50.0); Mean Corpuscular Hemoglobin 27.1 pg (28.0-32.0); Mean Corpuscular Hgb Conc. 30.8 g/dL (32.0-36.0); Mean Corpuscular Volume 88.1 fL (80.0-100.0); Monocytes # (auto) 0.6 10 ^3/uL (0-1.3); Monocytes % (auto) 6.2 % (0.0-12.0); Neutrophils # (auto) 8.3 10 ^3/uL (1.6-8.6); Neutrophils % (auto) 82.4 % (37.0-80.0); Red Cell Distribution Width 19.3 % (11.8-14.3)
[2023-04-19 04:16] LABS: Alanine Aminotransferase 64 U/L (7-40); Alkaline Phosphatase 181 U/L (46-116); Anion Gap 6 (5-15); Aspartate Aminotransferase 36 U/L (13-40); BUN/Creatinine Ratio 24.9 (10.0-20.0); Bilirubin, Total 0.5 mg/dL (0.2-1.0); Blood Urea Nitrogen 55 mg/dL (9-23); Calcium 8.6 mg/dL (8.7-10.4); Carbon Dioxide 29 mmol/L (20-30); Chloride 112 mmol/L (98-107); Glucose 107 mg/dL (74-106); Potassium 3.3 mmol/L (3.5-5.1); Sodium 147 mmol/L (136-145)
[2023-04-19 04:17] LABS: Total Protein 5.4 g/dL (5.7-8.2)
[2023-04-19] MEDS: POTASSIUM CHL 20MEQ/100ML 100 ML IV ONE (06:18)
[2023-04-19] MEDS: DOCUSATE ORAL LIQUID 100 MG/10 ML UD GT SCH (10:00)
[2023-04-19] MEDS ORDERED: CLINIMIX PER PHARMACY 0 ML IV SCH (15:00)
[2023-04-19] MEDS: AMIODARONE 450mg/250ml AE 250 ML IV SCH ×2 (15:15→21:15)
[2023-04-19 15:59] LABS: Phosphorus 2.6 mg/dL (2.4-5.1)
[2023-04-19] MEDS: AMINO ACID INFUSION IN D10W 1,000 ML IV SCH (20:54)
[2023-04-19] MEDS: methylPREDNISolone SOD SUCC 125 MG/2 ML VL IV SCH (21:42)
[2023-04-20] VITALS (110 sets, daily range): BP systolic 86–161; BP diastolic 47–91; PULSE 56–109; RESP 17–22; TEMP 96.9–98.6; O2SAT 89–99
[2023-04-20] MEDS ORDERED: DEXTROSE (50%) 50ML SYRG IV SCH
[2023-04-20] MEDS: InsuLIN REG 1unit/0.01ml Soln (100units/ml) SC SCH
[2023-04-20] MEDS: ACCU-CHEK COMFORT CURVE STRIP VI SCH (00:19)
[2023-04-20 04:50] LABS: Alanine Aminotransferase 45 U/L (7-40); Albumin 3.3 g/dL (3.2-4.8); Alkaline Phosphatase 169 U/L (46-116); Anion Gap 8 (5-15); Aspartate Aminotransferase 29 U/L (13-40); BUN/Creatinine Ratio 25.9 (10.0-20.0); Bilirubin, Total 0.5 mg/dL (0.2-1.0); Blood Urea Nitrogen 56 mg/dL (9-23); Calcium 8.8 mg/dL (8.7-10.4); Carbon Dioxide 27 mmol/L (20-30); Chloride 110 mmol/L (98-107); Glucose 188 mg/dL (74-106); Phosphorus 2.4 mg/dL (2.4-5.1); Potassium 3.6 mmol/L (3.5-5.1); Sodium 145 mmol/L (136-145)
[2023-04-20 07:43] LABS: Base Excess 3.3 mmol/L (-2.0-2.0)
[2023-04-20] MEDS: POTASSIUM PHOSPHATE 22 MEQ in SODIUM CHL 0.9% 100 ML IV ONE (15:25)
[2023-04-21] VITALS (112 sets, daily range): BP systolic 28–171; BP diastolic -4–109; PULSE 61–101; RESP 12–25; TEMP 97.2–98.2; O2SAT 89–100
[2023-04-21 04:15] LABS: Basophils # (auto) 0 10 ^3/uL (0-0.2); Eosinophils # (auto) 0 10 ^3/uL (0-0.8); Hematocrit 32.8 % (41.0-53.0); Hemoglobin 10.4 g/dL (13.5-17.5); Lymphocytes # (auto) 0.6 10 ^3/uL (0.4-5.4); Lymphocytes % (auto) 6.1 % (10.0-50.0); Mean Corpuscular Hemoglobin 27.8 pg (28.0-32.0); Mean Corpuscular Hgb Conc. 31.6 g/dL (32.0-36.0); Mean Corpuscular Volume 87.8 fL (80.0-100.0); Monocytes # (auto) 0.3 10 ^3/uL (0-1.3); Monocytes % (auto) 3.3 % (0.0-12.0); Neutrophils # (auto) 8.9 10 ^3/uL (1.6-8.6); Neutrophils % (auto) 90.6 % (37.0-80.0); Red Blood Cells 3.74 10^6/uL (4.5-5.90); Red Cell Distribution Width 19.4 % (11.8-14.3); White Blood Cell 9.9 10^3/uL (4.4-10.8)
[2023-04-21 04:30] LABS: Alanine Aminotransferase 32 U/L (7-40); Alkaline Phosphatase 135 U/L (46-116); Anion Gap 7 (5-15); Aspartate Aminotransferase 19 U/L (13-40); BUN/Creatinine Ratio 28.1 (10.0-20.0); Bilirubin, Total 0.3 mg/dL (0.2-1.0); Blood Urea Nitrogen 65 mg/dL (9-23); Calcium 8.7 mg/dL (8.7-10.4); Carbon Dioxide 28 mmol/L (20-30); Chloride 108 mmol/L (98-107); Glucose 203 mg/dL (74-106); Phosphorus 3.8 mg/dL (2.4-5.1); Potassium 3.8 mmol/L (3.5-5.1); Sodium 143 mmol/L (136-145); Total Protein 5.5 g/dL (5.7-8.2)
[2023-04-21 09:09] LABS: Base Excess 1.1 mmol/L (-2.0-2.0)
[2023-04-21 13:06] LABS: Base Excess -0.7 mmol/L (-2.0-2.0)
[2023-04-21] MEDS: methylPREDNISolone SOD SUCC 125 MG/2 ML VL IV SCH (19:59)
[2023-04-22] VITALS (107 sets, daily range): BP systolic 96–175; BP diastolic 52–106; PULSE 59–101; RESP 13–25; TEMP 97–98.4; O2SAT 97–100
[2023-04-22 04:24] LABS: Basophils # (auto) 0 10 ^3/uL (0-0.2); Eosinophils # (auto) 0 10 ^3/uL (0-0.8); Lymphocytes # (auto) 0.4 10 ^3/uL (0.4-5.4)
[2023-04-22 04:26] LABS: INR 1.27 (0.9-1.15); Partial Thromboplastin Time 37.3 SEC (24.5-34.5); Prothrombin Time 13.1 sec (9.3-11.8)
[2023-04-22 04:27] LABS: Hemoglobin 10.1 g/dL (13.5-17.5); Lymphocytes % (auto) 4.1 % (10.0-50.0); Mean Corpuscular Hemoglobin 27.8 pg (28.0-32.0); Mean Corpuscular Hgb Conc. 31.4 g/dL (32.0-36.0); Mean Corpuscular Volume 88.6 fL (80.0-100.0); Monocytes # (auto) 0.3 10 ^3/uL (0-1.3); Monocytes % (auto) 3.1 % (0.0-12.0); Neutrophils # (auto) 10.1 10 ^3/uL (1.6-8.6); Neutrophils % (auto) 92.8 % (37.0-80.0); Red Blood Cells 3.62 10^6/uL (4.5-5.90); Red Cell Distribution Width 18.9 % (11.8-14.3); White Blood Cell 10.9 10^3/uL (4.4-10.8)
[2023-04-22 04:33] LABS: Alanine Aminotransferase 28 U/L (7-40); Alkaline Phosphatase 121 U/L (46-116); Anion Gap 7 (5-15); Aspartate Aminotransferase 19 U/L (13-40); BUN/Creatinine Ratio 27.6 (10.0-20.0); Blood Urea Nitrogen 71 mg/dL (9-23); Calcium 8.6 mg/dL (8.7-10.4); Carbon Dioxide 26 mmol/L (20-30); Chloride 107 mmol/L (98-107); Glucose 198 mg/dL (74-106); Magnesium 1.9 mg/dL (1.6-2.6); Phosphorus 4.6 mg/dL (2.4-5.1); Sodium 140 mmol/L (136-145)
[2023-04-22 04:34] LABS: Bilirubin, Total 0.2 mg/dL (0.2-1.0); Total Protein 5.5 g/dL (5.7-8.2)
[2023-04-22 06:56] LABS: Base Excess -3.9 mmol/L (-2.0-2.0)
[2023-04-22 07:08] LABS: Platelet Estimate Decreased
[2023-04-22 07:09] LABS: Anisocytosis Slight; Large Platelets FEW; Ovalocytes FEW
[2023-04-22] MEDS ORDERED: LIDOCAINE 2%HCL (LOCAL ANESTH.) INJ 20ML MDV ONE (08:20)
[2023-04-22] MEDS ORDERED: GLYCOPYRROLATE 0.2 MG/ML 1ML VIAL ONE (08:20)
[2023-04-22] MEDS ORDERED: SODIUM CHLORIDE LOCK 0 ML ONE (08:20)
[2023-04-22] MEDS ORDERED: EPINEPHrine HCL 1 MG/1 ML AMP ONE (08:20)
[2023-04-22] MEDS ORDERED: LIDOCAINE HCL 2% TOP JELLY 5ML TOP ONE (08:21)
[2023-04-22] MEDS ORDERED: fentaNYL CITRATE 100 MCG/2 ML VL ONE (08:21)
[2023-04-22] MEDS ORDERED: MIDAZOLAM HCL 5 MG/ML-1ML VIAL ONE (08:21)
[2023-04-22] MEDS ORDERED: LIDOCAINE 2% JELLY 11ml (GLYDO) ONE (08:33)
[2023-04-22] MEDS ORDERED: Glucerna 1.2 Cal 1Liter BOTTLE GT SCH (14:15)
[2023-04-22] MEDS: ACETYLCYSTEINE 20%(200MG/ML) SOL 4ML NEB ONE (14:15)
[2023-04-22] MEDS: METOCLOPRAMIDE HCL 5MG/ml INJ 2ml VIAL IV ONE (14:20)
[2023-04-22] MEDS: LACTULOSE 20Gm/30ML SOLN PO SCH (17:38)
[2023-04-22] MEDS: ACETYLCYSTEINE 20%(200MG/ML) SOL 4ML NEB SCH (18:44)
[2023-04-22] MEDS: METOCLOPRAMIDE HCL 5MG/ml INJ 2ml VIAL IV SCH (21:48)
[2023-04-23] VITALS (107 sets, daily range): BP systolic 103–180; BP diastolic 45–95; PULSE 72–110; RESP 9–25; TEMP 98.3–99.5; O2SAT 65–99
[2023-04-23 04:03] LABS: Hemoglobin 10.9 g/dL (13.5-17.5)
[2023-04-23 04:07] LABS: Hematocrit 35.4 % (41.0-53.0); Mean Corpuscular Hemoglobin 27.5 pg (28.0-32.0); Mean Corpuscular Hgb Conc. 30.9 g/dL (32.0-36.0); Mean Corpuscular Volume 89.2 fL (80.0-100.0); Red Blood Cells 3.96 10^6/uL (4.5-5.90); White Blood Cell 12.1 10^3/uL (4.4-10.8)
[2023-04-23 04:17] LABS: Alanine Aminotransferase 30 U/L (7-40); Albumin 3.4 g/dL (3.2-4.8); Alkaline Phosphatase 129 U/L (46-116); Anion Gap 9 (5-15); Aspartate Aminotransferase 22 U/L (13-40); BUN/Creatinine Ratio 27.1 (10.0-20.0); Calcium 9.1 mg/dL (8.7-10.4); Carbon Dioxide 24 mmol/L (20-30); Chloride 106 mmol/L (98-107); Glucose 189 mg/dL (74-106); Magnesium 1.9 mg/dL (1.6-2.6); Phosphorus 4.6 mg/dL (2.4-5.1); Sodium 139 mmol/L (136-145)
[2023-04-23 04:18] LABS: Bilirubin, Total 0.3 mg/dL (0.2-1.0); Total Protein 6.1 g/dL (5.7-8.2)
[2023-04-23 04:28] LABS: Blood Urea Nitrogen 82 mg/dL (9-23)
[2023-04-23 04:29] LABS: Basophils % (manual) 0 (0.0-2.0); Blast Cells 0; Eosinophils % (manual) 0 (0-7); Metamyelocytes % 0; Myelocytes % 0; Promyelocytes % 0; Reactive Lymphocytes 0
[2023-04-23] MEDS: IPRATROPIUM BROM 0.5 MG/2.5ML INH SOL NEB SCH (06:54)
[2023-04-23 06:56] LABS: Anisocytosis Slight; Band Neutrophils % (manual) 2; Large Platelets FEW; Lymphocytes % (manual) 6 (10.0-50.0); Monocytes % (manual) 4 (0-12); Platelet Estimate Adequate; Stomatocytes Few
[2023-04-23 08:06] LABS: Base Excess -3.2 mmol/L (-2.0-2.0)
[2023-04-23] MEDS: SODIUM CHLORIDE 0.9% 1,000 ML IV ONE (14:32)
[2023-04-24] VITALS (106 sets, daily range): BP systolic 86–165; BP diastolic 37–85; PULSE 81–115; RESP 10–29; TEMP 98–99.6; O2SAT 89–100
[2023-04-24 03:44] LABS: Mean Corpuscular Hgb Conc. 30.8 g/dL (32.0-36.0); White Blood Cell 10.6 10^3/uL (4.4-10.8)
[2023-04-24 03:47] LABS: Hemoglobin 10.5 g/dL (13.5-17.5); Mean Corpuscular Hemoglobin 27.6 pg (28.0-32.0); Mean Corpuscular Volume 89.6 fL (80.0-100.0); Red Blood Cells 3.79 10^6/uL (4.5-5.90); Red Cell Distribution Width 19.9 % (11.8-14.3)
[2023-04-24 03:56] LABS: Band Neutrophils % (manual) 0; Basophils % (manual) 0 (0.0-2.0); Blast Cells 0; Eosinophils % (manual) 0 (0-7); Metamyelocytes % 0; Myelocytes % 0; Promyelocytes % 0; Reactive Lymphocytes 0
[2023-04-24 04:02] LABS: Alanine Aminotransferase 28 U/L (7-40); Albumin 3.2 g/dL (3.2-4.8); Alkaline Phosphatase 117 U/L (46-116); Anion Gap 10 (5-15); Aspartate Aminotransferase 23 U/L (13-40); BUN/Creatinine Ratio 29.6 (10.0-20.0); Bilirubin, Total 0.3 mg/dL (0.2-1.0); Calcium 9.3 mg/dL (8.5-10.1); Carbon Dioxide 22 mmol/L (20-30); Chloride 107 mmol/L (98-107); Glucose 111 mg/dL (74-106); Potassium 3.5 mmol/L (3.5-5.1); Sodium 139 mmol/L (136-145); Total Protein 5.6 g/dL (5.7-8.2)
[2023-04-24 04:10] LABS: Blood Urea Nitrogen 94 mg/dL (9-23)
[2023-04-24 04:35] LABS: Lymphocytes % (manual) 8 (10.0-50.0); Monocytes % (manual) 5 (0-12); Platelet Estimate Adequate
[2023-04-24 04:36] LABS: Anisocytosis Slight; Large Platelets FEW; Ovalocytes FEW; Stomatocytes Few
[2023-04-24] MEDS: SODIUM CHLORIDE 0.9% 1,000 ML IV SCH (08:12)
[2023-04-24] MEDS: fentaNYL Drip 2500mCg/250mlNS 250 ML IV SCH (13:15)
[2023-04-24 15:47] LABS: Base Excess -6.8 mmol/L (-2.0-2.0)
[2023-04-24 21:11] LABS: Base Excess -9.4 mmol/L (-2.0-2.0)
[2023-04-24] MEDS: SODIUM BICARB 8.4% 50Meq/50ml SYR Vial IV ONE (21:57)
[2023-04-25] VITALS (103 sets, daily range): BP systolic 82–145; BP diastolic 41–81; PULSE 85–116; RESP 11–26; TEMP 98–99.2; O2SAT 88–100
[2023-04-25 00:57] LABS: Base Excess -7.9 mmol/L (-2.0-2.0)
[2023-04-25 04:21] LABS: Basophils # (auto) 0 10 ^3/uL (0-0.2); Eosinophils # (auto) 0 10 ^3/uL (0-0.8); Eosinophils % (auto) 0.2 % (0.0-7.0); Hematocrit 32.5 % (41.0-53.0); Lymphocytes # (auto) 0.4 10 ^3/uL (0.4-5.4); Red Cell Distribution Width 19.3 % (11.8-14.3)
[2023-04-25 04:24] LABS: Basophils % (auto) 0.2 % (0.0-2.0); Hemoglobin 10.1 g/dL (13.5-17.5); Lymphocytes % (auto) 3.3 % (10.0-50.0); Mean Corpuscular Hemoglobin 27.7 pg (28.0-32.0); Mean Corpuscular Hgb Conc. 31.1 g/dL (32.0-36.0); Mean Corpuscular Volume 89.2 fL (80.0-100.0); Monocytes # (auto) 0.8 10 ^3/uL (0-1.3); Monocytes % (auto) 6.8 % (0.0-12.0); Neutrophils # (auto) 9.8 10 ^3/uL (1.6-8.6); Neutrophils % (auto) 89.5 % (37.0-80.0); Red Blood Cells 3.65 10^6/uL (4.5-5.90)
[2023-04-25 04:40] LABS: Alanine Aminotransferase 23 U/L (7-40); Alkaline Phosphatase 113 U/L (46-116); BUN/Creatinine Ratio 28.2 (10.0-20.0); Calcium 8.8 mg/dL (8.7-10.4); Chloride 106 mmol/L (98-107); Glucose 153 mg/dL (74-106); Potassium 3.7 mmol/L (3.5-5.1); Sodium 139 mmol/L (136-145)
[2023-04-25 04:41] LABS: Albumin 3.2 g/dL (3.2-4.8); Aspartate Aminotransferase 22 U/L (13-40); Bilirubin, Total 0.2 mg/dL (0.2-1.0); Total Protein 5.8 g/dL (5.7-8.2)
[2023-04-25 05:30] LABS: Blood Urea Nitrogen 99 mg/dL (9-23)
[2023-04-25 05:35] LABS: Anion Gap 13 (5-15); Carbon Dioxide 20 mmol/L (20-30)
[2023-04-25 08:11] LABS: Base Excess -9.3 mmol/L (-2.0-2.0)
[2023-04-25] MEDS: BUMETANIDE 2.5mg/10ml (0.25 mg/ml) INJ IV ONE (09:50)
[2023-04-25] MEDS: BUMETANIDE INJECTION 25 MG in GIVE UN-DILUTED 0 ML IV SCH (11:52)
[2023-04-26] VITALS (109 sets, daily range): BP systolic 76–136; BP diastolic 39–70; PULSE 80–106; RESP 12–26; TEMP 98–98.4; O2SAT 86–100
[2023-04-26 03:58] LABS: Basophils # (auto) 0 10 ^3/uL (0-0.2); Eosinophils # (auto) 0.1 10 ^3/uL (0-0.8); Eosinophils % (auto) 1.1 % (0.0-7.0); Lymphocytes # (auto) 0.6 10 ^3/uL (0.4-5.4); Lymphocytes % (auto) 5.1 % (10.0-50.0); Mean Corpuscular Volume 89.4 fL (80.0-100.0); Monocytes # (auto) 0.6 10 ^3/uL (0-1.3); White Blood Cell 11.3 10^3/uL (4.4-10.8)
[2023-04-26 04:02] LABS: Alanine Aminotransferase 22 U/L (7-40); Albumin 2.8 g/dL (3.2-4.8); Alkaline Phosphatase 99 U/L (46-116); Aspartate Aminotransferase 23 U/L (13-40); BUN/Creatinine Ratio 25.6 (10.0-20.0); Calcium 8.6 mg/dL (8.5-10.1); Chloride 106 mmol/L (98-107); Glucose 101 mg/dL (74-106); Sodium 137 mmol/L (136-145)
[2023-04-26 04:03] LABS: Basophils % (auto) 0.2 % (0.0-2.0); Bilirubin, Total 0.3 mg/dL (0.2-1.0); Hematocrit 27.5 % (41.0-53.0); Hemoglobin 8.6 g/dL (13.5-17.5); Mean Corpuscular Hgb Conc. 31.3 g/dL (32.0-36.0); Neutrophils # (auto) 10.1 10 ^3/uL (1.6-8.6); Neutrophils % (auto) 88.6 % (37.0-80.0); Red Blood Cells 3.07 10^6/uL (4.5-5.90); Red Cell Distribution Width 19.6 % (11.8-14.3); Total Protein 5.1 g/dL (5.7-8.2)
[2023-04-26 04:16] LABS: Blood Urea Nitrogen 102 mg/dL (9-23)
[2023-04-26 04:39] LABS: Anion Gap 12 (5-15); Carbon Dioxide 19 mmol/L (20-30)
[2023-04-26 07:34] LABS: Base Excess -10.4 mmol/L (-2.0-2.0)
[2023-04-26] MEDS: PANTOPRAZOLE 40 MG/10 ML VIAL INJ IV SCH (08:43)
[2023-04-26] MEDS ORDERED: ENOXAPARIN SOD 100 MG/1 ML SYRINGE SC SCH (10:00)
[2023-04-26] MEDS: CEFEPIME 1GM/ 50ML 50 ML IV SCH (10:03)
[2023-04-26] MEDS: SODIUM BICARB 8.4% 50Meq/50ml SYR Vial IV ONE (11:42)
[2023-04-26] MEDS: HEPARIN 1,000 UNITS/ml 1ML VIAL IV ONE (14:30)
[2023-04-26 14:58] LABS: Base Excess -5.1 mmol/L (-2.0-2.0)
[2023-04-26] MEDS: SODIUM CHL 0.9% 1000 ML BAG XX ONE (15:00)
[2023-04-26 20:30] LABS: INR 1.28 (0.9-1.15); Partial Thromboplastin Time 67.8 SEC (24.5-34.5); Prothrombin Time 13.2 sec (9.3-11.8)
[2023-04-26] MEDS: EPOETIN ALFA-EPBX 4,000 UNIT/ML VIAL SC ONE (21:41)
[2023-04-27] VITALS (110 sets, daily range): BP systolic 88–148; BP diastolic 35–75; PULSE 77–114; RESP 12–27; TEMP 96.3–98.8; O2SAT 83–100
[2023-04-27 03:59] LABS: Basophils # (auto) 0 10 ^3/uL (0-0.2); Basophils % (auto) 0.2 % (0.0-2.0); Eosinophils # (auto) 0 10 ^3/uL (0-0.8); Hemoglobin 7.8 g/dL (13.5-17.5); Lymphocytes # (auto) 0.3 10 ^3/uL (0.4-5.4); Monocytes # (auto) 0.3 10 ^3/uL (0-1.3); White Blood Cell 6.7 10^3/uL (4.4-10.8)
[2023-04-27 04:01] LABS: Eosinophils % (auto) 0.4 % (0.0-7.0); Hematocrit 24.9 % (41.0-53.0); Lymphocytes % (auto) 4.3 % (10.0-50.0); Mean Corpuscular Hemoglobin 27.8 pg (28.0-32.0); Mean Corpuscular Hgb Conc. 31.3 g/dL (32.0-36.0); Mean Corpuscular Volume 88.7 fL (80.0-100.0); Monocytes % (auto) 5.1 % (0.0-12.0); Nucleated Red Blood Cells % 0.1 %; Red Blood Cells 2.81 10^6/uL (4.5-5.90); Red Cell Distribution Width 19.4 % (11.8-14.3)
[2023-04-27 04:10] LABS: Calcium 8.1 mg/dL (8.7-10.4); Chloride 105 mmol/L (98-107); Sodium 137 mmol/L (136-145)
[2023-04-27 04:11] LABS: Anion Gap 9 (5-15); Carbon Dioxide 23 mmol/L (20-30)
[2023-04-27 04:16] LABS: BUN/Creatinine Ratio 24.9 (10.0-20.0); Glucose 114 mg/dL (74-106)
[2023-04-27 04:39] LABS: Blood Urea Nitrogen 90 mg/dL (9-23)
[2023-04-27 11:25] LABS: Base Excess -6.7 mmol/L (-2.0-2.0)
[2023-04-27] MEDS: SODIUM CHL 0.9% 1000 ML BAG XX ONE (13:00)
[2023-04-27] MEDS: ALBUMIN 25% 100 ML IV SCH (13:32)
[2023-04-27] MEDS: EPOETIN ALFA-EPBX 4,000 UNIT/ML VIAL SC ONE (21:37)
[2023-04-28] VITALS (117 sets, daily range): BP systolic 108–138; BP diastolic 52–77; PULSE 88–114; RESP 12–27; TEMP 98.1–99; O2SAT 88–100
[2023-04-28 03:42] LABS: Basophils # (auto) 0 10 ^3/uL (0-0.2); Lymphocytes # (auto) 0.4 10 ^3/uL (0.4-5.4); Monocytes # (auto) 0.5 10 ^3/uL (0-1.3); Nucleated Red Blood Cells % 0.1 %
[2023-04-28 03:45] LABS: Basophils % (auto) 0.2 % (0.0-2.0); Eosinophils # (auto) 0.1 10 ^3/uL (0-0.8); Eosinophils % (auto) 2.4 % (0.0-7.0); Hematocrit 20.3 % (41.0-53.0); Lymphocytes % (auto) 7.2 % (10.0-50.0); Mean Corpuscular Hemoglobin 27.9 pg (28.0-32.0); Mean Corpuscular Volume 87.3 fL (80.0-100.0); Monocytes % (auto) 7.8 % (0.0-12.0); Neutrophils # (auto) 4.9 10 ^3/uL (1.6-8.6); Neutrophils % (auto) 82.4 % (37.0-80.0); Red Blood Cells 2.33 10^6/uL (4.5-5.90); Red Cell Distribution Width 19.4 % (11.8-14.3); White Blood Cell 5.9 10^3/uL (4.4-10.8)
[2023-04-28 03:50] LABS: Hemoglobin 6.5 g/dL (13.5-17.5)
[2023-04-28 03:55] LABS: Alanine Aminotransferase 12 U/L (7-40); Albumin 2.9 g/dL (3.2-4.8); Alkaline Phosphatase 80 U/L (46-116); Anion Gap 6 (5-15); Aspartate Aminotransferase 13 U/L (13-40); BUN/Creatinine Ratio 20.9 (10.0-20.0); Calcium 8.1 mg/dL (8.7-10.4); Carbon Dioxide 27 mmol/L (20-30); Chloride 107 mmol/L (98-107); Glucose 80 mg/dL (74-106); Potassium 3.5 mmol/L (3.5-5.1); Sodium 140 mmol/L (136-145)
[2023-04-28 03:56] LABS: Bilirubin, Total 0.3 mg/dL (0.2-1.0); Total Protein 4.7 g/dL (5.7-8.2)
[2023-04-28 04:03] LABS: Blood Urea Nitrogen 58 mg/dL (9-23)
[2023-04-28 08:14] LABS: Base Excess -4.3 mmol/L (-2.0-2.0)
[2023-04-28 09:03] LABS: Hepatitis B Surface Antibody Negative (Negative)
[2023-04-28 09:15] LABS: Hepatitis B Surface Antigen Negative (Negative)
[2023-04-29] VITALS (107 sets, daily range): BP systolic 101–156; BP diastolic 53–88; PULSE 91–114; RESP 8–30; TEMP 98.1–99.5; O2SAT 84–100
[2023-04-29 04:19] LABS: Basophils # (auto) 0 10 ^3/uL (0-0.2); Basophils % (auto) 0.4 % (0.0-2.0); Eosinophils # (auto) 0.2 10 ^3/uL (0-0.8); Eosinophils % (auto) 2.8 % (0.0-7.0); Hematocrit 27.8 % (41.0-53.0); Hemoglobin 8.9 g/dL (13.5-17.5); Lymphocytes # (auto) 0.4 10 ^3/uL (0.4-5.4); Lymphocytes % (auto) 5.4 % (10.0-50.0); Mean Corpuscular Volume 87.6 fL (80.0-100.0); Monocytes # (auto) 0.7 10 ^3/uL (0-1.3); Monocytes % (auto) 9.4 % (0.0-12.0); Neutrophils # (auto) 5.8 10 ^3/uL (1.6-8.6); Red Blood Cells 3.17 10^6/uL (4.5-5.90); Red Cell Distribution Width 18.2 % (11.8-14.3)
[2023-04-29 04:35] LABS: Anion Gap 9 (5-15); Carbon Dioxide 25 mmol/L (20-30); Chloride 105 mmol/L (98-107); Potassium 3.3 mmol/L (3.5-5.1); Sodium 139 mmol/L (136-145)
[2023-04-29 04:36] LABS: Calcium 8.3 mg/dL (8.7-10.4)
[2023-04-29 04:41] LABS: BUN/Creatinine Ratio 21.2 (10.0-20.0); Blood Urea Nitrogen 65 mg/dL (9-23); Glucose 98 mg/dL (74-106)
[2023-04-29 04:42] LABS: Magnesium 1.7 mg/dL (1.6-2.6)
[2023-04-29 04:43] LABS: Phosphorus 5.1 mg/dL (2.4-5.1)
[2023-04-29 06:44] LABS: Base Excess -4.6 mmol/L (-2.0-2.0)
[2023-04-29] MEDS: POTASSIUM EFFERVESENT TAB 25 MEQ GT ONE (08:30)
[2023-04-29] MEDS: ALBUMIN 25% 100 ML IV SCH (12:16)
[2023-04-29] MEDS: SODIUM CHL 0.9% 1000 ML BAG XX ONE (14:00)
[2023-04-29] MEDS: MAGNESIUM SULFATE 1GM/100ML 100 ML IV ONE (17:37)
[2023-04-29] MEDS: EPOETIN ALFA-EPBX 10,000 UNIT/1ML VIAL SC ONE (20:53)
[2023-04-30] VITALS (108 sets, daily range): BP systolic 102–153; BP diastolic 47–79; PULSE 96–112; RESP 12–36; TEMP 98.4–99.4; O2SAT 88–100
[2023-04-30 03:51] LABS: Basophils # (auto) 0.1 10 ^3/uL (0-0.2); Basophils % (auto) 0.8 % (0.0-2.0); Eosinophils # (auto) 0.1 10 ^3/uL (0-0.8); Hematocrit 25.5 % (41.0-53.0); Hemoglobin 8.3 g/dL (13.5-17.5); Lymphocytes # (auto) 0.3 10 ^3/uL (0.4-5.4); Lymphocytes % (auto) 4.4 % (10.0-50.0); Mean Corpuscular Hemoglobin 28.5 pg (28.0-32.0); Mean Corpuscular Hgb Conc. 32.6 g/dL (32.0-36.0); Mean Corpuscular Volume 87.3 fL (80.0-100.0); Monocytes # (auto) 0.7 10 ^3/uL (0-1.3); Monocytes % (auto) 9.8 % (0.0-12.0); Red Blood Cells 2.93 10^6/uL (4.5-5.90); Red Cell Distribution Width 18.4 % (11.8-14.3); White Blood Cell 7.2 10^3/uL (4.4-10.8)
[2023-04-30 04:16] LABS: Alanine Aminotransferase 10 U/L (7-40); Albumin 3.6 g/dL (3.2-4.8); Alkaline Phosphatase 88 U/L (46-116); Anion Gap 9 (5-15); Aspartate Aminotransferase 14 U/L (13-40); BUN/Creatinine Ratio 17.7 (10.0-20.0); Calcium 8.8 mg/dL (8.7-10.4); Carbon Dioxide 27 mmol/L (20-30); Chloride 105 mmol/L (98-107); Glucose 84 mg/dL (74-106); Potassium 3.3 mmol/L (3.5-5.1); Sodium 141 mmol/L (136-145)
[2023-04-30 04:17] LABS: Bilirubin, Total 0.5 mg/dL (0.2-1.0); Total Protein 5.6 g/dL (5.7-8.2)
[2023-04-30 04:21] LABS: Blood Urea Nitrogen 46 mg/dL (9-23)
[2023-04-30 06:49] LABS: Base Excess -0.3 mmol/L (-2.0-2.0)
[2023-04-30] MEDS ORDERED: POTASSIUM CHL 20MEQ/100ML 100 ML IV ONE (07:00)
[2023-04-30] MEDS: SODIUM CHL 0.9% 1000 ML BAG XX ONE (07:00)
[2023-04-30] MEDS: ALBUMIN 25% 100 ML IV PRN (07:35)
[2023-04-30] MEDS: POTASSIUM CHL 20MEQ/100ML 100 ML IV ONE ×2 (08:03→08:11)
[2023-04-30] MEDS: PANTOPRAZOLE 40 MG/10 ML VIAL INJ IV SCH (14:28)
[2023-04-30 14:55] LABS: Base Excess 0.1 mmol/L (-2.0-2.0)
[2023-04-30] MEDS: EPOETIN ALFA-EPBX 10,000 UNIT/1ML VIAL SC ONE (21:00)
[2023-05-01] VITALS (105 sets, daily range): BP systolic 96–159; BP diastolic 48–83; PULSE 92–118; RESP 11–33; TEMP 97.2–99.9; O2SAT 7–100
[2023-05-01 03:45] LABS: Basophils # (auto) 0 10 ^3/uL (0-0.2); Eosinophils # (auto) 0.1 10 ^3/uL (0-0.8); Monocytes # (auto) 0.6 10 ^3/uL (0-1.3); Neutrophils # (auto) 5.5 10 ^3/uL (1.6-8.6); White Blood Cell 6.6 10^3/uL (4.4-10.8)
[2023-05-01 03:48] LABS: Basophils % (auto) 0.6 % (0.0-2.0); Eosinophils % (auto) 2.2 % (0.0-7.0); Hematocrit 24.5 % (41.0-53.0); Lymphocytes # (auto) 0.3 10 ^3/uL (0.4-5.4); Mean Corpuscular Hemoglobin 28.6 pg (28.0-32.0); Mean Corpuscular Hgb Conc. 32.6 g/dL (32.0-36.0); Mean Corpuscular Volume 87.6 fL (80.0-100.0); Monocytes % (auto) 9.1 % (0.0-12.0); Neutrophils % (auto) 83.1 % (37.0-80.0); Red Cell Distribution Width 18.5 % (11.8-14.3)
[2023-05-01 04:06] LABS: Alkaline Phosphatase 84 U/L (46-116); Anion Gap 8 (5-15); Aspartate Aminotransferase 11 U/L (13-40); BUN/Creatinine Ratio 13.5 (10.0-20.0); Carbon Dioxide 27 mmol/L (20-30); Chloride 106 mmol/L (98-107); Glucose 83 mg/dL (74-106); Magnesium 1.9 mg/dL (1.6-2.6); Potassium 3.2 mmol/L (3.5-5.1); Sodium 141 mmol/L (136-145)
[2023-05-01 04:07] LABS: Bilirubin, Total 0.5 mg/dL (0.2-1.0); Total Protein 5.9 g/dL (5.7-8.2)
[2023-05-01 04:09] LABS: Alanine Aminotransferase 9 U/L (7-40); Blood Urea Nitrogen 32 mg/dL (9-23)
[2023-05-01] MEDS: POTASSIUM CHL 20MEQ/100ML 100 ML IV ONE ×2 (05:16→07:57)
[2023-05-01] MEDS: SODIUM CHL 0.9% 1000 ML BAG XX ONE (07:00)
[2023-05-01] MEDS ORDERED: METOCLOPRAMIDE HCL 5MG/ml INJ 2ml VIAL IV PRN (09:15)
[2023-05-01 12:59] LABS: Base Excess 2.7 mmol/L (-2.0-2.0)
[2023-05-01 13:35] LABS: Potassium 3.7 mmol/L (3.5-5.1)
[2023-05-01 13:42] LABS: Magnesium 1.8 mg/dL (1.6-2.6)
[2023-05-01] MEDS: ACETYLCYSTEINE 20%(200MG/ML) SOL 4ML NEB SCH (14:00)
[2023-05-01] MEDS: IPRATROPIUM BROM 0.5 MG/2.5ML INH SOL NEB SCH ×2 (18:00→23:06)
[2023-05-01] MEDS: POTASSIUM CHL 20MEQ/100ML 100 ML IV SCH (19:14)
[2023-05-01] MEDS: BUMETANIDE INJECTION 25 MG in GIVE UN-DILUTED 0 ML IV SCH (19:15)
[2023-05-01] MEDS: EPOETIN ALFA-EPBX 10,000 UNIT/1ML VIAL SC ONE (21:01)
[2023-05-02] VITALS (108 sets, daily range): BP systolic 81–150; BP diastolic 43–90; PULSE 85–118; RESP 11–29; TEMP 98.2–99.9; O2SAT 79–100
[2023-05-02 04:11] LABS: Lymphocytes # (auto) 0.4 10 ^3/uL (0.4-5.4); Monocytes # (auto) 0.5 10 ^3/uL (0-1.3); White Blood Cell 5.8 10^3/uL (4.4-10.8)
[2023-05-02 04:14] LABS: Basophils # (auto) 0 10 ^3/uL (0-0.2); Basophils % (auto) 0.6 % (0.0-2.0); Eosinophils # (auto) 0.1 10 ^3/uL (0-0.8); Eosinophils % (auto) 2.6 % (0.0-7.0); Hematocrit 25.6 % (41.0-53.0); Hemoglobin 8.4 g/dL (13.5-17.5); Mean Corpuscular Hemoglobin 28.7 pg (28.0-32.0); Mean Corpuscular Hgb Conc. 32.7 g/dL (32.0-36.0); Mean Corpuscular Volume 87.9 fL (80.0-100.0); Monocytes % (auto) 8.3 % (0.0-12.0); Neutrophils # (auto) 4.7 10 ^3/uL (1.6-8.6); Neutrophils % (auto) 81.5 % (37.0-80.0); Red Blood Cells 2.91 10^6/uL (4.5-5.90); Red Cell Distribution Width 18.5 % (11.8-14.3)
[2023-05-02 04:25] LABS: Albumin 4.3 g/dL (3.2-4.8); Alkaline Phosphatase 85 U/L (46-116); Anion Gap 7 (5-15); Aspartate Aminotransferase 11 U/L (13-40); BUN/Creatinine Ratio 10.6 (10.0-20.0); Blood Urea Nitrogen 20 mg/dL (9-23); Calcium 9.7 mg/dL (8.7-10.4); Carbon Dioxide 27 mmol/L (20-30); Chloride 107 mmol/L (98-107); Glucose 87 mg/dL (74-106); Potassium 4.3 mmol/L (3.5-5.1); Sodium 141 mmol/L (136-145)
[2023-05-02 04:26] LABS: Bilirubin, Total 0.5 mg/dL (0.2-1.0); Total Protein 6.3 g/dL (5.7-8.2)
[2023-05-02 04:35] LABS: Alanine Aminotransferase < 9 U/L (7-40)
[2023-05-02] MEDS: SODIUM CHL 0.9% 1000 ML BAG XX ONE (07:00)
[2023-05-02 15:26] LABS: Base Excess -0.2 mmol/L (-2.0-2.0)
[2023-05-02] MEDS: CEFEPIME 1GM/ 50ML 50 ML IV SCH (22:50)
[2023-05-03] VITALS (107 sets, daily range): BP systolic 75–172; BP diastolic 41–92; PULSE 24–118; RESP 17–34; TEMP 97.2–99.9; O2SAT 93–100
[2023-05-03 03:53] LABS: Lymphocytes # (auto) 0.5 10 ^3/uL (0.4-5.4); Nucleated Red Blood Cells % 0.1 %; Red Cell Distribution Width 18.7 % (11.8-14.3)
[2023-05-03 03:57] LABS: Basophils # (auto) 0 10 ^3/uL (0-0.2); Basophils % (auto) 0.8 % (0.0-2.0); Eosinophils # (auto) 0.1 10 ^3/uL (0-0.8); Eosinophils % (auto) 2.2 % (0.0-7.0); Hematocrit 26.1 % (41.0-53.0); Hemoglobin 8.4 g/dL (13.5-17.5); Lymphocytes % (auto) 8.1 % (10.0-50.0); Mean Corpuscular Hemoglobin 28.5 pg (28.0-32.0); Monocytes # (auto) 0.6 10 ^3/uL (0-1.3); Monocytes % (auto) 9.5 % (0.0-12.0); Neutrophils # (auto) 4.8 10 ^3/uL (1.6-8.6); Neutrophils % (auto) 79.4 % (37.0-80.0); Red Blood Cells 2.93 10^6/uL (4.5-5.90)
[2023-05-03 04:13] LABS: Alanine Aminotransferase < 9 U/L (7-40); Albumin 4.3 g/dL (3.2-4.8); Alkaline Phosphatase 89 U/L (46-116); Anion Gap 8 (5-15); Aspartate Aminotransferase 11 U/L (13-40); BUN/Creatinine Ratio 10.7 (10.0-20.0); Bilirubin, Total 0.5 mg/dL (0.2-1.0); Blood Urea Nitrogen 23 mg/dL (9-23); Calcium 9.6 mg/dL (8.7-10.4); Carbon Dioxide 28 mmol/L (20-30); Chloride 104 mmol/L (98-107); Glucose 156 mg/dL (74-106); Potassium 3.9 mmol/L (3.5-5.1); Sodium 140 mmol/L (136-145); Total Protein 6.4 g/dL (5.7-8.2)
[2023-05-03 08:08] LABS: Base Excess 0.2 mmol/L (-2.0-2.0)
[2023-05-03] MEDS: SODIUM CHL 0.9% 1000 ML BAG XX ONE (11:00)
[2023-05-03] MEDS: fentaNYL Drip 2500mCg/250mlNS 250 ML IV SCH (19:00)
[2023-05-03] MEDS: EPOETIN ALFA-EPBX 10,000 UNIT/1ML VIAL SC ONE (20:55)
[2023-05-04] VITALS (106 sets, daily range): BP systolic 87–184; BP diastolic 52–96; PULSE 60–119; RESP 12–37; TEMP 96.4–100.2; O2SAT 93–100
[2023-05-04 04:44] LABS: Basophils # (auto) 0.3 10 ^3/uL (0-0.2); Basophils % (auto) 4.3 % (0.0-2.0); Eosinophils # (auto) 0.1 10 ^3/uL (0-0.8); Eosinophils % (auto) 2.3 % (0.0-7.0); Hematocrit 28.9 % (41.0-53.0); Hemoglobin 9.2 g/dL (13.5-17.5); Lymphocytes # (auto) 0.6 10 ^3/uL (0.4-5.4); Lymphocytes % (auto) 9.6 % (10.0-50.0); Mean Corpuscular Hgb Conc. 31.8 g/dL (32.0-36.0); Monocytes # (auto) 0.6 10 ^3/uL (0-1.3); Neutrophils # (auto) 4.6 10 ^3/uL (1.6-8.6); Neutrophils % (auto) 73.8 % (37.0-80.0); Nucleated Red Blood Cells % 0.1 %; Red Blood Cells 3.28 10^6/uL (4.5-5.90); Red Cell Distribution Width 18.8 % (11.8-14.3); White Blood Cell 6.3 10^3/uL (4.4-10.8)
[2023-05-04 04:55] LABS: Albumin 4.2 g/dL (3.2-4.8); Alkaline Phosphatase 91 U/L (46-116); Anion Gap 8 (5-15); Aspartate Aminotransferase 16 U/L (13-40); BUN/Creatinine Ratio 11.1 (10.0-20.0); Blood Urea Nitrogen 20 mg/dL (9-23); Calcium 9.5 mg/dL (8.7-10.4); Carbon Dioxide 27 mmol/L (20-30); Chloride 105 mmol/L (98-107); Glucose 107 mg/dL (74-106); Potassium 3.7 mmol/L (3.5-5.1); Sodium 140 mmol/L (136-145); Total Protein 6.4 g/dL (5.7-8.2)
[2023-05-04 04:57] LABS: Bilirubin, Total 0.5 mg/dL (0.2-1.0)
[2023-05-04 05:35] LABS: Alanine Aminotransferase < 9 U/L (7-40)
[2023-05-04 07:48] LABS: Base Excess 1.3 mmol/L (-2.0-2.0)
[2023-05-04] MEDS: SODIUM CHL 0.9% 1000 ML BAG XX ONE (11:53)
[2023-05-04] MEDS: METOPROLOL TARTRATE 25 MG TAB PO SCH (22:00)
[2023-05-05] VITALS (107 sets, daily range): BP systolic 87–186; BP diastolic 53–106; PULSE 94–118; RESP 19–44; TEMP 43.5; O2SAT 92–100
[2023-05-05] MEDS ORDERED: ACETAMINOPHEN 650 MG RECT SUPP PR PRN (01:00)
[2023-05-05] MEDS: dilTIAZem 25 MG/5 ML VIAL IV ONE (04:20)
[2023-05-05 04:27] LABS: Basophils # (auto) 0.1 10 ^3/uL (0-0.2); Basophils % (auto) 1.1 % (0.0-2.0); Eosinophils # (auto) 0.1 10 ^3/uL (0-0.8); Eosinophils % (auto) 0.6 % (0.0-7.0); Hematocrit 31.1 % (41.0-53.0); Hemoglobin 9.8 g/dL (13.5-17.5); Lymphocytes # (auto) 0.8 10 ^3/uL (0.4-5.4); Mean Corpuscular Hemoglobin 27.9 pg (28.0-32.0); Mean Corpuscular Hgb Conc. 31.4 g/dL (32.0-36.0); Mean Corpuscular Volume 88.8 fL (80.0-100.0); Monocytes # (auto) 1.4 10 ^3/uL (0-1.3); Monocytes % (auto) 11.6 % (0.0-12.0); Neutrophils # (auto) 9.7 10 ^3/uL (1.6-8.6); Neutrophils % (auto) 79.7 % (37.0-80.0); Nucleated Red Blood Cells % 0.2 %; Red Blood Cells 3.51 10^6/uL (4.5-5.90); Red Cell Distribution Width 19.4 % (11.8-14.3); White Blood Cell 12.1 10^3/uL (4.4-10.8)
[2023-05-05 04:40] LABS: Alkaline Phosphatase 106 U/L (46-116); Anion Gap 14 (5-15); Aspartate Aminotransferase 16 U/L (13-40); Calcium 9.7 mg/dL (8.7-10.4); Carbon Dioxide 25 mmol/L (20-30); Chloride 102 mmol/L (98-107); Glucose 131 mg/dL (74-106); Potassium 3.9 mmol/L (3.5-5.1); Sodium 141 mmol/L (136-145)
[2023-05-05 04:41] LABS: Albumin 4.5 g/dL (3.2-4.8); BUN/Creatinine Ratio 9.3 (10.0-20.0); Blood Urea Nitrogen 21 mg/dL (9-23); Magnesium 1.9 mg/dL (1.6-2.6)
[2023-05-05 04:42] LABS: Bilirubin, Total 0.5 mg/dL (0.2-1.0)
[2023-05-05 04:57] LABS: Alanine Aminotransferase 9 U/L (7-40)
[2023-05-05] MEDS ORDERED: VANCOMYCIN PER PHARMACY 0 MG IV SCH (13:00)
[2023-05-05] MEDS: VANCOMYCIN 1GM/200ML 200 ML IV ONE (16:43)
[2023-05-05] MEDS: SODIUM CHLORIDE 0.9% 1,000 ML IV SCH (17:57)
[2023-05-05 19:40] LABS: Creatinine, Urine 203.25 mg/dL (30.0-125.0)
[2023-05-05 19:43] LABS: Protein, Urine 769.5 mg/dL (0.0-11.9); Urine Protein/Creatinine Ratio 3.79
[2023-05-05] MEDS: VANCOMYCIN 500 MG in D5W 5% 100 ML IV ONE (19:50)
[2023-05-05] MEDS: IOHEXOL 350 MG/ML 100ML IJ ONE (20:54)
[2023-05-06] VITALS (103 sets, daily range): BP systolic 81–143; BP diastolic 41–79; PULSE 72–105; RESP 16–29; TEMP 98.1–99.9; O2SAT 88–100
[2023-05-06 04:20] LABS: Basophils # (auto) 0.1 10 ^3/uL (0-0.2); Basophils % (auto) 0.9 % (0.0-2.0); Eosinophils # (auto) 0.3 10 ^3/uL (0-0.8); Eosinophils % (auto) 2.7 % (0.0-7.0); Hematocrit 26.6 % (41.0-53.0); Hemoglobin 8.5 g/dL (13.5-17.5); Lymphocytes % (auto) 9.8 % (10.0-50.0); Mean Corpuscular Hemoglobin 28.2 pg (28.0-32.0); Monocytes % (auto) 9.9 % (0.0-12.0); Neutrophils # (auto) 7.8 10 ^3/uL (1.6-8.6); Neutrophils % (auto) 76.7 % (37.0-80.0); Nucleated Red Blood Cells % 0.1 %; Red Blood Cells 3.02 10^6/uL (4.5-5.90); Red Cell Distribution Width 18.7 % (11.8-14.3); White Blood Cell 10.2 10^3/uL (4.4-10.8)
[2023-05-06 04:43] LABS: Alanine Aminotransferase < 9 U/L (7-40); Albumin 3.7 g/dL (3.2-4.8); Alkaline Phosphatase 89 U/L (46-116); Anion Gap 11 (5-15); Aspartate Aminotransferase 13 U/L (13-40); BUN/Creatinine Ratio 13.7 (10.0-20.0); Blood Urea Nitrogen 41 mg/dL (9-23); Carbon Dioxide 26 mmol/L (20-30); Chloride 104 mmol/L (98-107); Glucose 89 mg/dL (74-106); Potassium 3.4 mmol/L (3.5-5.1); Sodium 141 mmol/L (136-145)
[2023-05-06 04:44] LABS: Bilirubin, Total 0.4 mg/dL (0.2-1.0); Total Protein 5.9 g/dL (5.7-8.2)
[2023-05-06 07:41] LABS: Base Excess -1.4 mmol/L (-2.0-2.0)
[2023-05-06] MEDS: VANCOMYCIN 1GM/200ML 200 ML IV ONE (09:17)
[2023-05-06] MEDS: POTASSIUM CHL 20MEQ/100ML 100 ML IV ONE (09:17)
[2023-05-06] MEDS ORDERED: TPN PER PHARMACY 0 ML IV SCH (11:00)
[2023-05-06 12:56] LABS: Magnesium 1.9 mg/dL (1.6-2.6)
[2023-05-06 12:57] LABS: Phosphorus 1.1 mg/dL (2.4-5.1)
[2023-05-06] MEDS ORDERED: VANCOMYCIN PER PHARMACY 0 MG IV SCH (16:00)
[2023-05-06] MEDS: POTASSIUM PHOSPHATE 44 MEQ in D5W 5% 250 ML IV ONE (16:14)
[2023-05-06] MEDS: DOPamine 1600MCG/ML D5W 250 ML IV SCH (16:15)
[2023-05-06] MEDS: AMINO ACID INFUSION IN D10W 1,000 ML IV SCH (20:47)
[2023-05-07] VITALS (108 sets, daily range): BP systolic 77–126; BP diastolic 45–76; PULSE 60–93; RESP 11–29; TEMP 96.4–99.1; O2SAT 91–100
[2023-05-07 04:29] LABS: Basophils # (auto) 0 10 ^3/uL (0-0.2); Basophils % (auto) 0.6 % (0.0-2.0); Eosinophils # (auto) 0.4 10 ^3/uL (0-0.8); Eosinophils % (auto) 5.3 % (0.0-7.0); Hematocrit 28.2 % (41.0-53.0); Hemoglobin 8.8 g/dL (13.5-17.5); Lymphocytes # (auto) 0.8 10 ^3/uL (0.4-5.4); Mean Corpuscular Hemoglobin 27.8 pg (28.0-32.0); Mean Corpuscular Hgb Conc. 31.1 g/dL (32.0-36.0); Mean Corpuscular Volume 89.4 fL (80.0-100.0); Monocytes # (auto) 0.6 10 ^3/uL (0-1.3); Monocytes % (auto) 8.2 % (0.0-12.0); Neutrophils # (auto) 5.6 10 ^3/uL (1.6-8.6); Neutrophils % (auto) 74.9 % (37.0-80.0); Red Blood Cells 3.15 10^6/uL (4.5-5.90); White Blood Cell 7.5 10^3/uL (4.4-10.8)
[2023-05-07 05:11] LABS: Albumin 3.6 g/dL (3.2-4.8); Alkaline Phosphatase 98 U/L (46-116); Anion Gap 14 (5-15); Carbon Dioxide 20 mmol/L (20-30); Chloride 105 mmol/L (98-107); Glucose 163 mg/dL (74-106); Magnesium 1.7 mg/dL (1.6-2.6); Potassium 3.7 mmol/L (3.5-5.1); Sodium 139 mmol/L (136-145)
[2023-05-07 05:12] LABS: Aspartate Aminotransferase 15 U/L (13-40); BUN/Creatinine Ratio 15.3 (10.0-20.0); Bilirubin, Total 0.3 mg/dL (0.2-1.0); Blood Urea Nitrogen 47 mg/dL (9-23); Phosphorus 4.2 mg/dL (2.4-5.1); Total Protein 5.9 g/dL (5.7-8.2)
[2023-05-07 05:27] LABS: Alanine Aminotransferase 11 U/L (7-40)
[2023-05-07 05:28] LABS: Triglycerides 146 mg/dL (< 150)
[2023-05-07 07:26] LABS: Base Excess -5.9 mmol/L (-2.0-2.0)
[2023-05-07 12:22] LABS: INR 2.02 (0.9-1.15); Partial Thromboplastin Time 40.5 SEC (24.5-34.5); Prothrombin Time 20.3 sec (9.3-11.8)
[2023-05-07] MEDS: PHYTONADIONE (VIT K)10 MG/ML 1ML VIAL SUBCUT ONE (15:10)
[2023-05-07 20:30] LABS: INR 1.73 (0.9-1.15); Partial Thromboplastin Time 58.7 SEC (24.5-34.5); Prothrombin Time 17.5 sec (9.3-11.8)
[2023-05-07] MEDS: TPN*HIGH CONC* PER PHARMACY IV NR (20:40)
[2023-05-08] VITALS (102 sets, daily range): BP systolic 93–130; BP diastolic 55–76; PULSE 69–112; RESP 18–36; TEMP 97–99.3; O2SAT 88–100
[2023-05-08 04:00] LABS: Hemoglobin 8.7 g/dL (13.5-17.5)
[2023-05-08 04:04] LABS: Hematocrit 27.3 % (41.0-53.0); Mean Corpuscular Hemoglobin 28.3 pg (28.0-32.0); Mean Corpuscular Volume 88.7 fL (80.0-100.0); Red Blood Cells 3.07 10^6/uL (4.5-5.90); Red Cell Distribution Width 19.5 % (11.8-14.3); White Blood Cell 5.5 10^3/uL (4.4-10.8)
[2023-05-08 04:13] LABS: Basophils % (manual) 0 (0.0-2.0); Blast Cells 0; Metamyelocytes % 0; Myelocytes % 0; Promyelocytes % 0; Reactive Lymphocytes 0
[2023-05-08 04:19] LABS: Alanine Aminotransferase 13 U/L (7-40); Albumin 3.5 g/dL (3.2-4.8); Alkaline Phosphatase 96 U/L (46-116); Anion Gap 12 (5-15); Aspartate Aminotransferase 15 U/L (13-40); BUN/Creatinine Ratio 18.2 (10.0-20.0); Blood Urea Nitrogen 52 mg/dL (9-23); Calcium 8.9 mg/dL (8.7-10.4); Carbon Dioxide 22 mmol/L (20-30); Chloride 106 mmol/L (98-107); Glucose 161 mg/dL (74-106); Magnesium 1.6 mg/dL (1.6-2.6); Potassium 3.3 mmol/L (3.5-5.1); Sodium 140 mmol/L (136-145)
[2023-05-08 04:20] LABS: Bilirubin, Total 0.3 mg/dL (0.2-1.0); Phosphorus 3.2 mg/dL (2.4-5.1)
[2023-05-08 05:31] LABS: Band Neutrophils % (manual) 14; Eosinophils % (manual) 4 (0-7); Lymphocytes % (manual) 16 (10.0-50.0); Monocytes % (manual) 5 (0-12); Platelet Estimate Decreased
[2023-05-08 07:45] LABS: Base Excess -4.7 mmol/L (-2.0-2.0)
[2023-05-08] MEDS: POTASSIUM CHL 20MEQ/100ML 100 ML IV ONE (07:47)
[2023-05-08] MEDS ORDERED: MIDAZOLAM HCL 2MG/2ML 2ml VIAL (1mg/ml) ONE (08:12)
[2023-05-08] MEDS ORDERED: fentaNYL CITRATE 100 MCG/2 ML VL ONE (08:12)
[2023-05-08] MEDS ORDERED: KETAMINE 50mg/ML 1ml syringe ONE (08:12)
[2023-05-08] MEDS ORDERED: ROCURONIUM 10MG/ML 10ML VIAL IV ONE (08:13)
[2023-05-08] MEDS ORDERED: PHENYLEPHRINE HCL 10 MG/ML VL ONE (08:13)
[2023-05-08 08:30] LABS: INR 1.5 (0.9-1.15); Partial Thromboplastin Time 36.8 SEC (24.5-34.5); Prothrombin Time 15.3 sec (9.3-11.8)
[2023-05-08] MEDS: MAGNESIUM SULFATE 1GM/100ML 100 ML IV ONE (10:53)
[2023-05-08] MEDS: VANCOMYCIN 1GM/200ML 200 ML IV ONE (10:54)
[2023-05-08] MEDS: TPN*HIGH CONC* PER PHARMACY IV NR (20:58)
[2023-05-09] VITALS (115 sets, daily range): BP systolic 81–155; BP diastolic 47–93; PULSE 95–120; RESP 21–38; TEMP 88.7–100; O2SAT 84–100
[2023-05-09 04:28] LABS: Basophils # (auto) 0 10 ^3/uL (0-0.2); Basophils % (auto) 0.5 % (0.0-2.0); Eosinophils # (auto) 0.2 10 ^3/uL (0-0.8); Hematocrit 28.1 % (41.0-53.0); Lymphocytes # (auto) 0.7 10 ^3/uL (0.4-5.4); Lymphocytes % (auto) 9.1 % (10.0-50.0); Mean Corpuscular Hemoglobin 27.9 pg (28.0-32.0); Mean Corpuscular Volume 87.3 fL (80.0-100.0); Monocytes # (auto) 0.6 10 ^3/uL (0-1.3); Neutrophils # (auto) 6.1 10 ^3/uL (1.6-8.6); Neutrophils % (auto) 80.4 % (37.0-80.0); Nucleated Red Blood Cells % 0.1 %; Red Blood Cells 3.22 10^6/uL (4.5-5.90); Red Cell Distribution Width 19.5 % (11.8-14.3); White Blood Cell 7.6 10^3/uL (4.4-10.8)
[2023-05-09 04:32] LABS: Alanine Aminotransferase 11 U/L (7-40); Albumin 3.7 g/dL (3.2-4.8); Alkaline Phosphatase 101 U/L (46-116); Anion Gap 12 (5-15); Aspartate Aminotransferase 14 U/L (13-40); BUN/Creatinine Ratio 29.7 (10.0-20.0); Calcium 9.1 mg/dL (8.7-10.4); Carbon Dioxide 22 mmol/L (20-30); Chloride 107 mmol/L (98-107); Glucose 190 mg/dL (74-106); Magnesium 1.8 mg/dL (1.6-2.6); Potassium 3.4 mmol/L (3.5-5.1); Sodium 141 mmol/L (136-145)
[2023-05-09 04:33] LABS: Bilirubin, Total 0.3 mg/dL (0.2-1.0); Blood Urea Nitrogen 63 mg/dL (9-23); Phosphorus 3.1 mg/dL (2.4-5.1); Total Protein 6.3 g/dL (5.7-8.2)
[2023-05-09] MEDS: POTASSIUM CHL 20MEQ/100ML 100 ML IV ONE (06:47)
[2023-05-09 09:40] LABS: Base Excess -6.7 mmol/L (-2.0-2.0)
[2023-05-09] MEDS: TPN*HIGH CONC* PER PHARMACY IV NR (20:47)
[2023-05-09] MEDS: HEPARIN SODIUM (PORCINE) 5000 UNITS/ML 1ML VIAL SC SCH (20:48)
[2023-05-10] VITALS (113 sets, daily range): BP systolic 82–139; BP diastolic 48–70; PULSE 84–113; RESP 9–41; TEMP 94.6–99.9; O2SAT 93–100
[2023-05-10] MEDS: PROPOFOL 100 ML IV SCH (01:40)
[2023-05-10 04:28] LABS: Eosinophils # (auto) 0 10 ^3/uL (0-0.8); Eosinophils % (auto) 0.2 % (0.0-7.0); Hemoglobin 8.4 g/dL (13.5-17.5); Monocytes # (auto) 1.4 10 ^3/uL (0-1.3); Monocytes % (auto) 7.8 % (0.0-12.0); Red Cell Distribution Width 19.5 % (11.8-14.3)
[2023-05-10 04:31] LABS: Basophils # (auto) 0 10 ^3/uL (0-0.2); Basophils % (auto) 0.2 % (0.0-2.0); Hematocrit 27.6 % (41.0-53.0); Lymphocytes # (auto) 0.9 10 ^3/uL (0.4-5.4); Lymphocytes % (auto) 5.3 % (10.0-50.0); Mean Corpuscular Hemoglobin 27.5 pg (28.0-32.0); Mean Corpuscular Hgb Conc. 30.4 g/dL (32.0-36.0); Mean Corpuscular Volume 90.4 fL (80.0-100.0); Neutrophils # (auto) 15.5 10 ^3/uL (1.6-8.6); Neutrophils % (auto) 86.5 % (37.0-80.0); Nucleated Red Blood Cells % 0.1 %; Red Blood Cells 3.05 10^6/uL (4.5-5.90); White Blood Cell 17.9 10^3/uL (4.4-10.8)
[2023-05-10 04:59] LABS: Alanine Aminotransferase 10 U/L (7-40); Alkaline Phosphatase 106 U/L (46-116); Anion Gap 13 (5-15); BUN/Creatinine Ratio 30.5 (10.0-20.0); Blood Urea Nitrogen 61 mg/dL (9-23); Calcium 9.2 mg/dL (8.7-10.4); Carbon Dioxide 19 mmol/L (20-30); Chloride 107 mmol/L (98-107); Glucose 163 mg/dL (74-106); Magnesium 1.9 mg/dL (1.6-2.6); Potassium 4.1 mmol/L (3.5-5.1); Sodium 139 mmol/L (136-145)
[2023-05-10 05:00] LABS: Albumin 3.4 g/dL (3.2-4.8); Aspartate Aminotransferase 16 U/L (13-40); Bilirubin, Total 0.3 mg/dL (0.2-1.0); Phosphorus 3.1 mg/dL (2.4-5.1); Total Protein 5.9 g/dL (5.7-8.2)
[2023-05-10 10:02] LABS: Base Excess -8.8 mmol/L (-2.0-2.0)
[2023-05-10] MEDS: SODIUM BICARB 8.4% 50Meq/50ml SYR Vial IV ONE (14:04)
[2023-05-10 14:33] LABS: Base Excess -8.5 mmol/L (-2.0-2.0)
[2023-05-10] MEDS: TPN*HIGH CONC* PER PHARMACY IV NR (21:23)
[2023-05-11] VITALS (109 sets, daily range): BP systolic 76–166; BP diastolic 41–80; PULSE 81–102; RESP 14–35; TEMP 97.3–99.9; O2SAT 90–100
[2023-05-11 04:16] LABS: Basophils # (auto) 0.1 10 ^3/uL (0-0.2); Basophils % (auto) 0.4 % (0.0-2.0); Hemoglobin 7.9 g/dL (13.5-17.5); Monocytes # (auto) 1.1 10 ^3/uL (0-1.3)
[2023-05-11 04:21] LABS: Eosinophils # (auto) 0.3 10 ^3/uL (0-0.8); Eosinophils % (auto) 1.8 % (0.0-7.0); Hematocrit 24.9 % (41.0-53.0); Lymphocytes % (auto) 6.7 % (10.0-50.0); Mean Corpuscular Hemoglobin 27.4 pg (28.0-32.0); Mean Corpuscular Hgb Conc. 31.7 g/dL (32.0-36.0); Mean Corpuscular Volume 86.4 fL (80.0-100.0); Monocytes % (auto) 7.6 % (0.0-12.0); Neutrophils % (auto) 83.5 % (37.0-80.0); Red Blood Cells 2.88 10^6/uL (4.5-5.90); White Blood Cell 14.4 10^3/uL (4.4-10.8)
[2023-05-11 04:38] LABS: Alanine Aminotransferase 10 U/L (7-40); Albumin 3.2 g/dL (3.2-4.8); Alkaline Phosphatase 128 U/L (46-116); Anion Gap 11 (5-15); Aspartate Aminotransferase 17 U/L (13-40); BUN/Creatinine Ratio 39.8 (10.0-20.0); Calcium 9.1 mg/dL (8.7-10.4); Carbon Dioxide 21 mmol/L (20-30); Chloride 106 mmol/L (98-107); Glucose 204 mg/dL (74-106); Potassium 4.1 mmol/L (3.5-5.1); Sodium 138 mmol/L (136-145)
[2023-05-11 04:39] LABS: Bilirubin, Total 0.3 mg/dL (0.2-1.0); Phosphorus 1.9 mg/dL (2.4-5.1); Total Protein 5.7 g/dL (5.7-8.2)
[2023-05-11 04:57] LABS: Blood Urea Nitrogen 86 mg/dL (9-23)
[2023-05-11] MEDS: SODIUM PHOSPHATES 20 MEQ in SODIUM CHL 0.9% 100 ML IV ONE (10:41)
[2023-05-11 11:06] LABS: Base Excess -5.2 mmol/L (-2.0-2.0)
[2023-05-11] MEDS: SODIUM CHL 0.9% 1000 ML BAG XX ONE (13:15)
[2023-05-11] MEDS: TPN*HIGH CONC* PER PHARMACY IV NR (19:44)
[2023-05-12] VITALS (91 sets, daily range): BP systolic 86–131; BP diastolic 43–68; PULSE 70–96; RESP 20–38; TEMP 97.7–99; O2SAT 87–99
[2023-05-12 06:11] LABS: Mean Corpuscular Volume 86.3 fL (80.0-100.0); White Blood Cell 10.6 10^3/uL (4.4-10.8)
[2023-05-12 06:14] LABS: Hematocrit 23.6 % (41.0-53.0); Hemoglobin 7.8 g/dL (13.5-17.5); Mean Corpuscular Hemoglobin 28.4 pg (28.0-32.0); Mean Corpuscular Hgb Conc. 32.9 g/dL (32.0-36.0); Red Blood Cells 2.74 10^6/uL (4.5-5.90); Red Cell Distribution Width 18.9 % (11.8-14.3)
[2023-05-12 06:40] LABS: Alanine Aminotransferase 15 U/L (7-40); Alkaline Phosphatase 168 U/L (46-116); Anion Gap 10 (5-15); Aspartate Aminotransferase 29 U/L (13-40); BUN/Creatinine Ratio 35.2 (10.0-20.0); Calcium 8.7 mg/dL (8.7-10.4); Carbon Dioxide 23 mmol/L (20-30); Chloride 105 mmol/L (98-107); Glucose 151 mg/dL (74-106); Magnesium 2.1 mg/dL (1.6-2.6); Sodium 138 mmol/L (136-145)
[2023-05-12 06:41] LABS: Albumin 3.2 g/dL (3.2-4.8); Bilirubin, Total 0.3 mg/dL (0.2-1.0); Phosphorus 2.9 mg/dL (2.4-5.1); Total Protein 5.7 g/dL (5.7-8.2)
[2023-05-12 06:44] LABS: Blood Urea Nitrogen 64 mg/dL (9-23)
[2023-05-12 07:11] LABS: Basophils % (manual) 0 (0.0-2.0); Blast Cells 0; Myelocytes % 0; Promyelocytes % 0; Reactive Lymphocytes 0
[2023-05-12 09:18] LABS: Band Neutrophils % (manual) 11; Eosinophils % (manual) 2 (0-7); Lymphocytes % (manual) 10 (10.0-50.0); Metamyelocytes % 1; Monocytes % (manual) 10 (0-12)
[2023-05-12 09:19] LABS: Anisocytosis Slight; Platelet Estimate Adequate
[2023-05-12 16:31] LABS: COVID19 ANTIGEN SOFIA FIA NEGATIVE (NEGATIVE)
[2023-05-12] MEDS: BUMETANIDE 2.5mg/10ml (0.25 mg/ml) INJ IV SCH (18:09)
[2023-05-12] MEDS: TPN*HIGH CONC* PER PHARMACY IV SCH (20:00)
== END 2023-05-12 20:40 | DRG 4 ==
LOC: ER 10:49 → EDBD 10:49 → TELE 13:34 → ICU WEST 04-08 18:46
PROVIDERS: ADMIT Internal Medicine Pulmonary Disease; ATTEND Internal Medicine Pulmonary Disease
PROC: 0BJ08ZZ Inspection of Tracheobronchial Tree, Via Natural or Artificial Opening Endoscopic (ICD-10-PCS; 2023-04-07)
PROC: 5A1955Z Respiratory Ventilation, Greater than 96 Consecutive Hours (ICD-10-PCS; 2023-04-07)
PROC: 0BH17EZ Insertion of Endotracheal Airway into Trachea, Via Natural or Artificial Opening (ICD-10-PCS; 2023-04-07)
PROC: 30233K1 Transfusion of Nonautologous Frozen Plasma into Peripheral Vein, Percutaneous Approach (ICD-10-PCS; 2023-04-07)
PROC: 02HV33Z Insertion of Infusion Device into Superior Vena Cava, Percutaneous Approach (ICD-10-PCS; 2023-04-09)
PROC: B548ZZA Ultrasonography of Superior Vena Cava, Guidance (ICD-10-PCS; 2023-04-09)
PROC: 03HY32Z Insertion of Monitoring Device into Upper Artery, Percutaneous Approach (ICD-10-PCS; 2023-04-10)
PROC: 0B9J8ZZ Drainage of Left Lower Lung Lobe, Via Natural or Artificial Opening Endoscopic (ICD-10-PCS; 2023-04-10)
PROC: 0BH17EZ Insertion of Endotracheal Airway into Trachea, Via Natural or Artificial Opening (ICD-10-PCS; 2023-04-12)
PROC: 0B9J8ZZ Drainage of Left Lower Lung Lobe, Via Natural or Artificial Opening Endoscopic (ICD-10-PCS; 2023-04-12)
PROC: 05HB33Z Insertion of Infusion Device into Right Basilic Vein, Percutaneous Approach (ICD-10-PCS; 2023-04-15)
PROC: B54MZZA Ultrasonography of Right Upper Extremity Veins, Guidance (ICD-10-PCS; 2023-04-15)
PROC: 05HY33Z Insertion of Infusion Device into Upper Vein, Percutaneous Approach (ICD-10-PCS; 2023-04-16)
PROC: B54MZZA Ultrasonography of Right Upper Extremity Veins, Guidance (ICD-10-PCS; 2023-04-16)
PROC: 0B9J8ZZ Drainage of Left Lower Lung Lobe, Via Natural or Artificial Opening Endoscopic (ICD-10-PCS; 2023-04-22)
PROC: 05HN33Z Insertion of Infusion Device into Left Internal Jugular Vein, Percutaneous Approach (ICD-10-PCS; 2023-04-25)
PROC: B544ZZA Ultrasonography of Left Jugular Veins, Guidance (ICD-10-PCS; 2023-04-25)
PROC: 5A1D70Z Performance of Urinary Filtration, Intermittent, Less than 6 Hours Per Day (ICD-10-PCS; 2023-04-26)
PROC: 5A1D70Z Performance of Urinary Filtration, Intermittent, Less than 6 Hours Per Day (ICD-10-PCS; 2023-04-27)
PROC: 30233N1 Transfusion of Nonautologous Red Blood Cells into Peripheral Vein, Percutaneous Approach (ICD-10-PCS; 2023-04-28)
PROC: 5A1D70Z Performance of Urinary Filtration, Intermittent, Less than 6 Hours Per Day (ICD-10-PCS; 2023-04-29)
PROC: 5A1D70Z Performance of Urinary Filtration, Intermittent, Less than 6 Hours Per Day (ICD-10-PCS; 2023-04-30)
PROC: 5A1D70Z Performance of Urinary Filtration, Intermittent, Less than 6 Hours Per Day (ICD-10-PCS; 2023-05-01)
PROC: 5A1D70Z Performance of Urinary Filtration, Intermittent, Less than 6 Hours Per Day (ICD-10-PCS; 2023-05-02)
PROC: 5A1D70Z Performance of Urinary Filtration, Intermittent, Less than 6 Hours Per Day (ICD-10-PCS; 2023-05-03)
PROC: 5A1D70Z Performance of Urinary Filtration, Intermittent, Less than 6 Hours Per Day (ICD-10-PCS; 2023-05-04)
PROC: 0B113F4 Bypass Trachea to Cutaneous with Tracheostomy Device, Percutaneous Approach (ICD-10-PCS; principal; 2023-05-08 09:27)
PROC: 5A1D70Z Performance of Urinary Filtration, Intermittent, Less than 6 Hours Per Day (ICD-10-PCS; 2023-05-11)
DX: A41.9 Sepsis, unspecified organism (principal); I50.43 Acute on chronic combined systolic (congestive) and diastolic (congestive) heart failure; J15.0 Pneumonia due to Klebsiella pneumoniae; J96.01 Acute respiratory failure with hypoxia; J69.0 Pneumonitis due to inhalation of food and vomit; R65.21 Severe sepsis with septic shock; J15.212 Pneumonia due to Methicillin resistant Staphylococcus aureus; S22.089A Unspecified fracture of T11-T12 vertebra, initial encounter for closed fracture; I48.20 Chronic atrial fibrillation, unspecified; J45.901 Unspecified asthma with (acute) exacerbation; J44.0 Chronic obstructive pulmonary disease with (acute) lower respiratory infection; J44.1 Chronic obstructive pulmonary disease with (acute) exacerbation; J98.11 Atelectasis; Z99.11 Dependence on respirator [ventilator] status; R04.2 Hemoptysis; T79.7XXA Traumatic subcutaneous emphysema, initial encounter; E87.29 Other acidosis; I82.622 Acute embolism and thrombosis of deep veins of left upper extremity; N17.9 Acute kidney failure, unspecified; Z20.822 Contact with and (suspected) exposure to COVID-19; E11.65 Type 2 diabetes mellitus with hyperglycemia; E66.9 Obesity, unspecified; I11.0 Hypertensive heart disease with heart failure; T78.3XXA Angioneurotic edema, initial encounter; F41.9 Anxiety disorder, unspecified; I27.20 Pulmonary hypertension, unspecified; K74.60 Unspecified cirrhosis of liver; K44.9 Diaphragmatic hernia without obstruction or gangrene; K59.00 Constipation, unspecified; E83.39 Other disorders of phosphorus metabolism; E87.6 Hypokalemia; F10.10 Alcohol abuse, uncomplicated; T46.4X5A Adverse effect of angiotensin-converting-enzyme inhibitors, initial encounter; D64.9 Anemia, unspecified; X58.XXXA Exposure to other specified factors, initial encounter; Z79.01 Long term (current) use of anticoagulants; Z82.49 Family history of ischemic heart disease and other diseases of the circulatory system; Z83.3 Family history of diabetes mellitus; Z88.8 Allergy status to other drugs, medicaments and biological substances; Z80.9 Family history of malignant neoplasm, unspecified; Z68.34 Body mass index [BMI] 34.0-34.9, adult; Y93.89 Activity, other specified; Y92.89 Other specified places as the place of occurrence of the external cause; Y99.8 Other external cause status
CPT/HCPCS: 31500; 36415; 36430; 36569; 36600; 70450; 70490; 70491; 71045; 71250; 71260; 74018; 74176; 76604; 76775; 80048; 80053; 80076; 80162; 80202; 81001; 82105; 82140; 82270; 82306; 82378; 82533; 82565; 82570; 82805; 82962; 83036; 83605; 83735; 83880; 83970; 84100; 84132; 84156; 84300; 84439; 84443; 84478; 85007; 85014; 85018; 85025; 85027; 85379; 85610; 85730; 86706; 86850; 86900; 86901; 86920; 87040; 87070; 87077; 87081; 87086; 87088; 87186; 87205; 87340; 87426; 87804; 90935; 93005; 93306; 93925; 93970; 93971; 94002; 94003; 94640; 99152; 99291; C9113; G0378; J0171; J0330; J0692; J1642; J1815; J2250; J2543; J2704; J3430; J3480; J3490; J7060; P9047